=== PATIENT | male | born 1965 | race Caucasian/White ===

== ENCOUNTER 2017-06-20 19:00 | Emergency (ER) | payer SELFPAY ==
[~2017-06-20] VITALS: Ht 188 cm; Wt 104.3 kg
[~2017-06-20 19:00] MED LIST: ALBU90OI6 INH; AMIT10; AZIT250 PO; Ativan1 MG PO; Bactrim Ds Tab1 EACH PO; Benadryl 50 mg50 MG PO; CEPH500 PO; CYCL10 PO; Cleocin HCl300 MG PO; DOXY100 PO; GABA300 PO; HYDACE5; HYDACE5 PO; HYDACE5325 PO; IBUP600 PO; IBUP800 PO; KETO10 PO; Keflex500 MG PO; LEVFLO500 PO; LISHYD2012 PO; LISI20 PO; MELO7.5 PO; METF500 PO; METF500C PO; METO50 PO; METO50ER PO; METPRE4DP PO; Metoprolol Tar100 MG; NAPR500 PO; Naprosyn500 MG PO; Norco 10-325 T1 EACH PO; Norco 5-325 Ta1 EACH PO; OSEL75CA PO; OXYACE5C PO; OXYACE5T PO; PENVK500; PROCODE120 PO; Pepcid20 MG PO; Percocet 5-3251 EACH PO; ROBITUSSIN100 MG/5 M PO; RXCYCL10 PO; RXHYDACE PO; RXSULTRIDS PO; SULTRIDS PO; Ultram50 MG PO; Veetids 500500 MG PO
[2017-06-20] MEDS ORDERED: IBUP800 PO (20:37)
[2017-06-20] MEDS ORDERED: Robaxin500 MG PO (20:37)
[2017-06-20] MEDS ORDERED: LIDO700A20 TOP (20:37)
[2018-03-29] MEDS ORDERED: NEOPOLHCSU RIGHTEAR (18:20)
== END 2017-06-20 21:20 | disposition home or self-care (01) ==
LOC: ER 19:00
DX: G89.29 Other chronic pain (principal); M54.5 Low back pain; I10 Essential (primary) hypertension; E11.40 Type 2 diabetes mellitus with diabetic neuropathy, unspecified; Z91.030 Bee allergy status; Z79.899 Other long term (current) drug therapy; Z87.891 Personal history of nicotine dependence
CPT/HCPCS: 99282; J1885

== ENCOUNTER 2018-08-11 14:14 | Emergency (ER) | payer OTHER ==
[~2018-08-11] VITALS: Ht 188 cm; Wt 104.3 kg
[~2018-08-11 14:14] MED LIST changes: +LIDO700A20 TOP; +NEOPOLHCSU RIGHTEAR; +Robaxin500 MG PO
== END 2018-08-11 15:33 | disposition home or self-care (01) ==
LOC: ER 14:14
DX: Z48.817 Encounter for surgical aftercare following surgery on the skin and subcutaneous tissue (principal); I10 Essential (primary) hypertension; F17.210 Nicotine dependence, cigarettes, uncomplicated
CPT/HCPCS: 99282

== ENCOUNTER 2020-10-25 21:00 | Emergency (ER) | payer OTHER ==
[~2020-10-25] VITALS: Ht 188 cm; Wt 102.1 kg
[2020-10-26 00:03] LABS: BASOPHILS ABSOLUTE AUTO 0.06 K/mm3 (0.00-0.23); BASOPHILS PERCENT AUTO 1 % (0-2); EOSINOPHILS ABSOLUTE AUTO 0.18 K/mm3 (0.00-0.68); EOSINOPHILS PERCENT AUTO 3 % (0-6); Hematocrit 42.3 % (37.0-53.0); Hemoglobin 14.7 g/dL (13.5-17.5); IMMATURE GRAN ABSOLUTE AUTO 0.02 K/mm3 (0.00-0.10); IMMATURE GRAN PERCENT AUTO 0 % (0-1); LYMPHOCYTES ABSOLUTE AUTO 2.94 K/mm3 (0.84-5.20); LYMPHOCYTES PERCENT AUTO 40 % (21-46); MONOCYTES ABSOLUTE AUTO 0.56 K/mm3 (0.16-1.47); MONOCYTES PERCENT AUTO 8 % (4-13); Mean Corpuscular HGB 31.1 pg (26.0-34.0); Mean Corpuscular HGB Conc 34.8 g/dL (31.5-36.5); Mean Corpuscular Volume 89 fL (80-100); Mean Platelet Volume 9.1 fL (9.1-12.4); NEUTROPHILS ABSOLUTE AUTO 3.53 K/mm3 (1.96-9.15); NEUTROPHILS PERCENT AUTO 48 % (41-73); Platelet Count 299 K/mm3 (150-400); RDW Coefficient Variation 12.3 % (11.7-14.2); RDW Standard Deviation 40.2 fL (35.1-46.3); Red Blood Cell Count 4.73 M/mm3 (4.30-5.90); White Blood Cell Count 7.29 K/mm3 (4.00-11.30)
[2020-10-26 00:22] LABS: Alanine Aminotransfer (ALT/SGP 33 U/L (12-78); Albumin, Blood 1.5 g/dL (3.4-5.0); Albumin/Globulin Ratio 0.4 (0.8-1.8); Alk Phos 92 U/L (50-136); Anion Gap 3 mmol/L (6-16); Aspartate Aminotrans (AST/SGOT 33 U/L (12-37); Bilirubin, Total 0.1 mg/dL (0.1-1.0); Blood Urea Nitrogen 14 mg/dL (8-24); Bun/Creatinine Ratio 12.2 (12.0-20.0); CO2, Blood 29 mmol/L (21-32); CPK Creatine Kinase 280 U/L (39-308); Chloride, Blood 104 mmol/L (98-108); Creatinine, Blood 1.15 mg/dL (0.60-1.20); Globulin, Blood 4.1 g/dL (2.2-4.0); Glomerular Filtration Rate >60 (60-); Glucose, Blood 100 mg/dL (70-99); Potassium, Blood 4.4 mmol/L (3.5-5.5); Sodium, Blood 136 mmol/L (136-145); Total Protein, Blood 5.6 g/dL (6.4-8.2)
[2020-10-26 01:18] LABS: International Normalized Ratio 0.9; Prothrombin Time Results 9.8 Sec (9.7-11.5)
== END 2020-10-26 03:05 | disposition home or self-care (01) ==
LOC: ER 21:00
PROVIDERS: Emergency Medicine
DX: E88.09 Other disorders of plasma-protein metabolism, not elsewhere classified (principal); I10 Essential (primary) hypertension; E11.40 Type 2 diabetes mellitus with diabetic neuropathy, unspecified; F17.210 Nicotine dependence, cigarettes, uncomplicated
CPT/HCPCS: 71045; 76870; 80053; 82550; 83735; 83880; 84484; 85025; 85610; 93005; 93010; 99284-25

== ENCOUNTER 2020-11-04 21:10 | Emergency (ER) | payer OTHER ==
[~2020-11-04] VITALS: Ht 188 cm; Wt 128.0 kg
[2020-11-04 21:35] LABS: BASOPHILS ABSOLUTE AUTO 0.08 K/mm3 (0.00-0.23); BASOPHILS PERCENT AUTO 1 % (0-2); EOSINOPHILS ABSOLUTE AUTO 0.21 K/mm3 (0.00-0.68); EOSINOPHILS PERCENT AUTO 2 % (0-6); Hematocrit 40.5 % (37.0-53.0); Hemoglobin 14.2 g/dL (13.5-17.5); IMMATURE GRAN ABSOLUTE AUTO 0.05 K/mm3 (0.00-0.10); IMMATURE GRAN PERCENT AUTO 1 % (0-1); LYMPHOCYTES ABSOLUTE AUTO 2.86 K/mm3 (0.84-5.20); LYMPHOCYTES PERCENT AUTO 31 % (21-46); MONOCYTES ABSOLUTE AUTO 0.91 K/mm3 (0.16-1.47); MONOCYTES PERCENT AUTO 10 % (4-13); Mean Corpuscular HGB Conc 35.1 g/dL (31.5-36.5); Mean Corpuscular Volume 88 fL (80-100); Mean Platelet Volume 9.1 fL (9.1-12.4); NEUTROPHILS ABSOLUTE AUTO 5.27 K/mm3 (1.96-9.15); NEUTROPHILS PERCENT AUTO 56 % (41-73); Platelet Count 352 K/mm3 (150-400); RDW Coefficient Variation 12.3 % (11.7-14.2); RDW Standard Deviation 39.8 fL (35.1-46.3); Red Blood Cell Count 4.58 M/mm3 (4.30-5.90); White Blood Cell Count 9.38 K/mm3 (4.00-11.30)
[2020-11-04 21:42] LABS: Source, Urine Clean Catch
[2020-11-04 21:47] LABS: Appearance, Urine Clear (Clear); Bilirubin, Urine Neg (Neg); Blood, Urine 3+ (Neg); Color, Urine Yellow (P-Yellow); Glucose Qualitative, Urine Neg (Neg); Ketones, Urine Neg (Neg); Leukocyte Esterase, Urine 1+ (Neg); Nitrite, Urine Neg (Neg); Protein, Urine 4+ (Neg); Urobilinogen, Urine NORM (Normal)
[2020-11-04 21:51] LABS: Bacteria Many /hpf; Red Blood Cells, Urine 0-2 /hpf (0-2); Squamous Epithelial Cells Mod /hpf (Few)
[2020-11-04 21:53] LABS: Hyaline Casts 0-2 /lpf (0-2)
[2020-11-04 22:04] LABS: Alanine Aminotransfer (ALT/SGP 26 U/L (12-78); Albumin/Globulin Ratio 0.2 (0.8-1.8); Alk Phos 124 U/L (50-136); Anion Gap 2 mmol/L (6-16); Aspartate Aminotrans (AST/SGOT 33 U/L (12-37); Bilirubin, Total <0.1 mg/dL (0.1-1.0); Blood Urea Nitrogen 24 mg/dL (8-24); Bun/Creatinine Ratio 20.2 (12.0-20.0); CO2, Blood 30 mmol/L (21-32); Calcium, Blood 7.9 mg/dL (8.5-10.1); Chloride, Blood 104 mmol/L (98-108); Creatinine, Blood 1.19 mg/dL (0.60-1.20); Globulin, Blood 4.1 g/dL (2.2-4.0); Glomerular Filtration Rate >60 (60-); Glucose, Blood 96 mg/dL (70-99); Potassium, Blood 4.2 mmol/L (3.5-5.5); Sodium, Blood 136 mmol/L (136-145); Total Protein, Blood 5.1 g/dL (6.4-8.2)
[2020-11-05] MEDS ORDERED: Lasix40 MG PO (00:48)
== END 2020-11-05 01:09 | disposition home or self-care (01) ==
LOC: ER 21:10
PROVIDERS: Physician Assistant
DX: E88.09 Other disorders of plasma-protein metabolism, not elsewhere classified (principal); R60.9 Edema, unspecified; R80.9 Proteinuria, unspecified; I10 Essential (primary) hypertension; E11.40 Type 2 diabetes mellitus with diabetic neuropathy, unspecified; F17.210 Nicotine dependence, cigarettes, uncomplicated; Z91.030 Bee allergy status
CPT/HCPCS: 36415; 74177; 80053; 81001; 83690; 85025; 87086; 96374-59; 96375; 99285-25; J1940; J2405; Q9967

== ENCOUNTER 2020-11-16 06:22 | Inpatient (IN) | payer OTHER ==
[~2020-11-16] VITALS: Ht 188 cm; Wt 127.0 kg
[~2020-11-16 06:22] MED LIST changes: +Lasix40 MG PO
[2020-11-16 07:10] LABS: BASOPHILS ABSOLUTE AUTO 0.07 K/mm3 (0.00-0.23); BASOPHILS PERCENT AUTO 1 % (0-2); EOSINOPHILS ABSOLUTE AUTO 0.21 K/mm3 (0.00-0.68); EOSINOPHILS PERCENT AUTO 3 % (0-6); Hematocrit 42.6 % (37.0-53.0); Hemoglobin 14.6 g/dL (13.5-17.5); IMMATURE GRAN ABSOLUTE AUTO 0.02 K/mm3 (0.00-0.10); IMMATURE GRAN PERCENT AUTO 0 % (0-1); LYMPHOCYTES ABSOLUTE AUTO 2.94 K/mm3 (0.84-5.20); LYMPHOCYTES PERCENT AUTO 38 % (21-46); MONOCYTES ABSOLUTE AUTO 0.68 K/mm3 (0.16-1.47); MONOCYTES PERCENT AUTO 9 % (4-13); Mean Corpuscular HGB 30.5 pg (26.0-34.0); Mean Corpuscular HGB Conc 34.3 g/dL (31.5-36.5); Mean Corpuscular Volume 89 fL (80-100); Mean Platelet Volume 9.2 fL (9.1-12.4); NEUTROPHILS ABSOLUTE AUTO 3.93 K/mm3 (1.96-9.15); NEUTROPHILS PERCENT AUTO 50 % (41-73); Platelet Count 421 K/mm3 (150-400); RDW Coefficient Variation 12.2 % (11.7-14.2); RDW Standard Deviation 40.2 fL (35.1-46.3); Red Blood Cell Count 4.78 M/mm3 (4.30-5.90); White Blood Cell Count 7.85 K/mm3 (4.00-11.30)
[2020-11-16 07:23] LABS: Alanine Aminotransfer (ALT/SGP 33 U/L (12-78); Albumin, Blood 0.9 g/dL (3.4-5.0); Albumin/Globulin Ratio 0.2 (0.8-1.8); Alk Phos 102 U/L (50-136); Anion Gap 2 mmol/L (6-16); Aspartate Aminotrans (AST/SGOT 35 U/L (12-37); Blood Urea Nitrogen 27 mg/dL (8-24); Bun/Creatinine Ratio 17.8 (12.0-20.0); CO2, Blood 29 mmol/L (21-32); Calcium, Blood 7.7 mg/dL (8.5-10.1); Chloride, Blood 104 mmol/L (98-108); Creatinine, Blood 1.52 mg/dL (0.60-1.20); Globulin, Blood 4.3 g/dL (2.2-4.0); Glomerular Filtration Rate 51 (60-); Glucose, Blood 119 mg/dL (70-99); Magnesium, Blood 2.5 mg/dL (1.6-2.4); Phosphorus, Blood 3.3 mg/dL (2.5-4.9); Potassium, Blood 4.4 mmol/L (3.5-5.5); Sodium, Blood 135 mmol/L (136-145); Total Protein, Blood 5.2 g/dL (6.4-8.2)
[2020-11-16 07:36] LABS: Bilirubin, Total <0.1 mg/dL (0.1-1.0)
[2020-11-16 08:16] LABS: Source, Urine Voided
[2020-11-16 08:39] LABS: Appearance, Urine Hazy (Clear); Bilirubin, Urine Neg (Neg); Blood, Urine 4+ (Neg); Color, Urine Yellow (P-Yellow); Glucose Qualitative, Urine Neg (Neg); Ketones, Urine Neg (Neg); Leukocyte Esterase, Urine Neg (Neg); Nitrite, Urine Neg (Neg); Protein, Urine 4+ (Neg); Specific Gravity, Urine 1.015 (1.003-1.022); Urobilinogen, Urine NORM (Normal)
[2020-11-16 09:02] LABS: Amorphous Light (0-Heavy); Bacteria Few /hpf; Squamous Epithelial Cells Rare /hpf (Few)
--- NOTE | 2020-11-16 14:00 | NUR ---
PT IS A AOX4; CALLS APPROPRIATELY. INDEPENDENT IN THE ROOM. PT CAME IN FOR ANASARCA RELATED TO KIDNEY. PT IS 55YO; FULL CODE. PT CAME IN WITH 180S SBP. PT GIVEN PRN HYDRALIZINE. PT STARTED 24 HR URINE; DR BREWER WAS CONSULTED- SEE PROGRESS NOTE. GENERALIZED EDEMA ON BOTH UPPER AND LOWER EXTREMETIES +2/3. PT ALSO HAS DISTENDED ABD; PAINFUL WHEN MOVING TOO MUCH ON ABD; MEDICATED FOR PAIN X1. PT BP IS NOW DOWN TO 170'S SBP; CALLED AND RECEIVED AN ORDER TO START THE PROCARDIA NOW. WILL RECHECK THE BP IN AN HOUR. PT URINATING OKAY AND NO C/O OF PAIN OR BLOOD IN URINE. PT LIVES WITH . PT FRUSTRATED ABOUT HIS SITUATION. HE IS NOT ON ANY MEDICATION FOR HIS BLOOD PRESSURE AND HE STATED HE HAS NOT BEEN CHECKING HIS BP AND NOT BEEN TAKING CARE OF HIS HEALTH HE SHOULD.
--- NOTE | 2020-11-17 04:23 | NUR ---
PATIENT ALERT AND COOPERATIVE WITH CARE. VERY MINIMAL URINE OUT OVERNIGHT. BLADDER SCANNED AT 0400 FOR AN AMOUNT >300. PATIENT TRYING TO STAND AT BEDSIDE TO URINATE NOT. COLLECTED URINE ON ICE OVERNIGHT FOR 24 HOUR URINE WHICH WILL BE COMPLETE AT 1500 TODAY.
[2020-11-17 06:06] LABS: Hematocrit 39.4 % (37.0-53.0); Hemoglobin 13.7 g/dL (13.5-17.5); Mean Corpuscular HGB 31.1 pg (26.0-34.0); Mean Corpuscular HGB Conc 34.8 g/dL (31.5-36.5); Mean Corpuscular Volume 89 fL (80-100); Mean Platelet Volume 9.2 fL (9.1-12.4); Platelet Count 420 K/mm3 (150-400); RDW Coefficient Variation 12.5 % (11.7-14.2); RDW Standard Deviation 40.8 fL (35.1-46.3); Red Blood Cell Count 4.41 M/mm3 (4.30-5.90); White Blood Cell Count 8.64 K/mm3 (4.00-11.30)
[2020-11-17 06:33] LABS: Alanine Aminotransfer (ALT/SGP 26 U/L (12-78); Albumin/Globulin Ratio 0.2 (0.8-1.8); Alk Phos 91 U/L (50-136); Anion Gap 5 mmol/L (6-16); Aspartate Aminotrans (AST/SGOT 25 U/L (12-37); Bilirubin, Direct <0.1 mg/dL (0.0-0.3); Bilirubin, Indirect Unable to Calculate mg/dL (0.1-0.7); Bilirubin, Total 0.2 mg/dL (0.1-1.0); Blood Urea Nitrogen 31 mg/dL (8-24); Bun/Creatinine Ratio 18.5 (12.0-20.0); CHOL/HDL RATIO 5.3; CO2, Blood 26 mmol/L (21-32); Calcium, Blood 7.7 mg/dL (8.5-10.1); Chloride, Blood 103 mmol/L (98-108); Cholesterol 436 mg/dL (50-200); Creatinine, Blood 1.68 mg/dL (0.60-1.20); Globulin, Blood 4.2 g/dL (2.2-4.0); Glomerular Filtration Rate 45 (60-); Glucose, Blood 116 mg/dL (70-99); HDL Cholesterol 83 mg/dL (>39); LDL/HDL RATIO 3.8; Low Density Lipoprotein Chol 316 mg/dL (0-110); Magnesium, Blood 2.6 mg/dL (1.6-2.4); Phosphorus, Blood 3.9 mg/dL (2.5-4.9); Potassium, Blood 4.4 mmol/L (3.5-5.5); Sodium, Blood 134 mmol/L (136-145); Total Protein, Blood 5.2 g/dL (6.4-8.2); Triglycerides 184 mg/dL (30-160); Uric Acid, Blood 5.4 mg/dL (3.5-7.2); Very Low Density Lipoprot Chol 36 mg/dL (6-32)
[2020-11-17 06:35] LABS: BASOPHILS ABSOLUTE MAN 0.08 K/mm3 (0.00-0.23); BASOPHILS PERCENT MAN 1 % (0-2); Cortisol, AM 12.5 ug/dL (6.7-22.6); EOSINOPHILS PERCENT MAN 0 % (0-6); LYMPHOCYTES ABSOLUTE MAN 2.76 K/mm3 (0.84-5.20); LYMPHOCYTES PERCENT MAN 32 % (21-46); MONOCYTES PERCENT MAN 7 % (4-13); NEUTROPHILS ABSOLUTE MAN 5.18 K/mm3 (1.96-9.15); SEG NEUTROPHILS PERCENT MAN 60 % (41-73); TOTAL CELLS COUNTED 100
[2020-11-17 08:25] LABS: Free Thyroxine 0.55 ng/dL (0.70-1.60); Triiodothyronine, Free 1.48 pg/mL (2.18-3.98)
[2020-11-17 15:44] LABS: Protein, Urine Quantitative 1214.3 mg/dL (0.0-11.9)
--- NOTE | 2020-11-17 18:13 | NUR ---
SHIFT SUMMARY PT ALERT ORIENTED AND INDEPENDENT IN THE ROOM. PT RECEIVED MEDICATIONS PER DR OJEDA ORDER THIS AM. 24 HR URINE DONE. STILL DIURESING AND FLUID RESTRICTION PER DR ORDER. MEDICATED PT FOR PAIN. NO SOB OR CP. BED IS IN THE LOWEST POSITION AND CALL LIGHT WITHIN REACH
[2020-11-17 22:56] LABS: Eosinophils-Raw #,Urine 0; White Blood Cells Urine 0-2 /hpf (0-5)
[2020-11-18 05:15] LABS: Hematocrit 37.3 % (37.0-53.0); Hemoglobin 12.6 g/dL (13.5-17.5)
[2020-11-18 05:32] LABS: Albumin, Blood 1.3 g/dL (3.4-5.0); Anion Gap 5 mmol/L (6-16); Blood Urea Nitrogen 29 mg/dL (8-24); Bun/Creatinine Ratio 17.6 (12.0-20.0); CO2, Blood 28 mmol/L (21-32); Calcium, Blood 7.8 mg/dL (8.5-10.1); Chloride, Blood 104 mmol/L (98-108); Creatinine, Blood 1.65 mg/dL (0.60-1.20); Glomerular Filtration Rate 46 (60-); Glucose, Blood 115 mg/dL (70-99); Magnesium, Blood 2.4 mg/dL (1.6-2.4); Phosphorus, Blood 4.3 mg/dL (2.5-4.9); Potassium, Blood 3.4 mmol/L (3.5-5.5); Sodium, Blood 137 mmol/L (136-145)
--- NOTE | 2020-11-18 06:05 | NUR ---
KELLY SLEPT WELL EXCEPT TO WAKE TO URINATE. PATIENT VOIDED LARGE QUANTITIES OF PALE YELLOW URINE OVERNIGHT. MEDICATED FOR PAIN IN RIGHT WRIST (OLD INJURY MADE WORSE BY SWELLING). HE IS PLEASANT AND COOPERATIVE WITH CARE, AND READY TO TAKE ANY STEPS HE CAN TO PARTICIPATE IN A POSITIVE OUTCOME REGARDING HIS ILLNESS.
--- NOTE | 2020-11-18 08:47 | NUR ---
pt standing in room, a/ox3, pleasant and cooperative with care, follows commands well, reports a lot of discomfort due to swelling mulu in scrotum, lungs are clear in upper lujan, dim in bases, resp even and unlabored, no cough noted, hrr, 2-3+ edema noted to b/l le, abd tight, arms are tight and swollen, iv to rac site is clear and patent, btx4 distant, voids via urinal is clear moses urine, skin is a bit dark discoloration to b/l le, otherwise intact, avis christianson, call light in reach, up ad ita in room.
--- NOTE | 2020-11-18 11:48 | NUR ---
pt doing ok, is uncomfortable with how much fluid he is carrying, otherwise doing ok, no complaints. call light in reach.
--- NOTE | 2020-11-18 18:45 | NUR ---
SUMMARY PT IS A&OX3, INDEPENDENT IN THE ROOM. HE WAS GIVEN IV BUMEX X2 TODAY, VOIDING WITH NO PROBLEMS, APPROX 3,000 ML'S CLEAR YELLOW URINE NOTED. PT IS TOLERATING PO INTAKE. IV PAIN MEDS WERE CHANGED TO ULTRAM TODAY. ORDERED AN XRAY OF THE RIGHT WRIST PER PT REQUEST, PT C/O PAIN FROM A PREVIOUS INJURY PRIOR TO THIS HOSPITALIZTION. CONNIE REPORT TO NOC RN, CALL LIGHT IN REACH
--- NOTE | 2020-11-19 04:48 | NUR ---
SHIFT SUMMARY A/OX4, PLEASANT AND COOPERATIVE WITH CARE. GENERALIZED EDEMA NOTED, 1L FLUID RESTRICTION. C/O ABD AND FLANK PAIN, MEDICATED PER EMAR X1. VSS, NO ACUTE CHANGES AT THIS TIME. BED IN LOWEST POSITION WITH CALL LIGHT IN REACH. WILL CONTINUE TO MONITOR AND REPORT TO ONCOMING RN.
[2020-11-19 05:11] LABS: Hematocrit 34.7 % (37.0-53.0)
[2020-11-19 05:37] LABS: Albumin, Blood 1.3 g/dL (3.4-5.0); Anion Gap 5 mmol/L (6-16); Blood Urea Nitrogen 32 mg/dL (8-24); Bun/Creatinine Ratio 20.9 (12.0-20.0); CO2, Blood 31 mmol/L (21-32); Calcium, Blood 7.5 mg/dL (8.5-10.1); Chloride, Blood 99 mmol/L (98-108); Creatinine, Blood 1.53 mg/dL (0.60-1.20); Glomerular Filtration Rate 50 (60-); Glucose, Blood 112 mg/dL (70-99); Magnesium, Blood 2.3 mg/dL (1.6-2.4); Phosphorus, Blood 4.8 mg/dL (2.5-4.9); Potassium, Blood 3.2 mmol/L (3.5-5.5); Sodium, Blood 135 mmol/L (136-145)
--- NOTE | 2020-11-19 13:30 | NUR ---
PT GAVE VERBAL PERMISSION FOR ME TO SPEAK TO . CALLED PATIENT'S SHILA, GAVE UPDATE ON PT'S CONDITION AND PLAN OF CARE GOING FORWARD. ALL QUESTIONS ANSWERED.
[2020-11-19 14:42] LABS: Percent Saturation 54.8 % (20.0-50.0)
[2020-11-19 15:09] LABS: A/G RATIO 0.6 (0.7-1.7); ALBUMIN 1.4 g/dL (2.9-4.4); ALPHA-1-GLOBULIN 0.2 g/dL (0.0-0.4); ALPHA-2-GLOBULIN 1.2 g/dL (0.4-1.0); BETA GLOBULIN 0.9 g/dL (0.7-1.3); GAMMA GLOBULIN 0.4 g/dL (0.4-1.8); GLOBULIN, TOTAL 2.6 g/dL (2.2-3.9); IMMUNOGLOBULIN A, QN, SERUM 215 mg/dL (90-386); IMMUNOGLOBULIN G, QN, SERUM 197 mg/dL (603-1613); IMMUNOGLOBULIN M, QN, SERUM 131 mg/dL (20-172); M-SPIKE Not Observed g/dL (Not Observed)
--- NOTE | 2020-11-19 18:14 | NUR ---
SHIFT SUMMARY: NO ACUTE EVENTS. C/O PAIN IN R WRIST; MEDICATED WITH TRAMADOL X 1 WITH GOOD EFFECT AND GAVE ICE BAG, WHICH HE STATED HELPED. GOOD URINE OUTPUT, USING URINAL INDEPENDENTLY. SKIN IS TIGHT THROUGHOUT FROM EDEMA. COMPLIANT WITH FLUID RESTRICTION, BUT SENT ORDER TO FOOD SERVICES TO LIMIT FLUIDS ON TRAYS. TOLERATING PO INTAKE, BUT LBM WAS 6/18, WILL NEED BOWEL MEDS. INDEPENDENT IN ROOM, VERBALIZED UNDERSTANDING TO CALL NURSING FOR ASSISTANCE IF NEEDED AND TO CHANGE POSITIONS SLOWLY TO PREVENT DIZZINESS.
--- NOTE | 2020-11-20 04:09 | NUR ---
SHIFT SUMMARY A/OX4, IND IN ROOM. 1L FLUID RESTRICTION. C/O R. WRIST AND ABD PAIN, MEDICATED PER EMAR X1. DENIES SOB. VSS, NO ACUTE CHANGES AT THIS TIME. BED IN LOWEST POSITION WITH CALL LIGHT IN REACH. WILL CONTINUE TO MONITOR AND REPORT TO ONCOMING RN.
[2020-11-20 05:25] LABS: Hematocrit 34.1 % (37.0-53.0); Hemoglobin 11.8 g/dL (13.5-17.5)
[2020-11-20 05:51] LABS: Albumin, Blood 1.3 g/dL (3.4-5.0); Anion Gap 5 mmol/L (6-16); Blood Urea Nitrogen 32 mg/dL (8-24); Bun/Creatinine Ratio 22.9 (12.0-20.0); CO2, Blood 33 mmol/L (21-32); Calcium, Blood 7.8 mg/dL (8.5-10.1); Chloride, Blood 97 mmol/L (98-108); Glomerular Filtration Rate 56 (60-); Glucose, Blood 106 mg/dL (70-99); Magnesium, Blood 2.2 mg/dL (1.6-2.4); Phosphorus, Blood 3.9 mg/dL (2.5-4.9); Potassium, Blood 3.5 mmol/L (3.5-5.5); Sodium, Blood 135 mmol/L (136-145)
[2020-11-20 08:10] LABS: ANTIGLOMERULAR BM AB 2 units (0-20)
[2020-11-20 11:10] LABS: M-SPIKE, % Not Observed % (Not Observed); PROTEIN,TOTAL,URINE 1230.9 mg/dL (Not Estab.)
[2020-11-20] MEDS ORDERED: BUME2 PO (11:33)
[2020-11-20] MEDS ORDERED: ATOR40TA PO (11:33)
[2020-11-20] MEDS ORDERED: Catapres0.2 MG PO (11:34)
[2020-11-20] MEDS ORDERED: CARV6.25 PO (11:34)
[2020-11-20] MEDS ORDERED: EUTHYROX50 MCG PO (11:35)
[2020-11-20] MEDS ORDERED: METO5 PO (11:36)
[2020-11-20] MEDS ORDERED: POTCHL20ER PO (11:36)
[2020-11-20] MEDS ORDERED: SPIR25 PO (11:37)
--- NOTE | 2020-11-20 13:00 | NUR ---
PATIENT DISCHARGED TO HOME, TO PEACE OFFICER. IV SALINE LOCK REMOVED WITHOUT INCIDENT. GAVE EXTENSIVE EDUCATION, BOTH VERBAL AND PRINTED, ON MANAGING HTN, DIET RESTRICTIONS (LOW SALT, RENAL), WHAT TO DO IF SXS COME BACK OR WORSEN, AND ALL NEW MEDICATIONS. PT VERBALIZED UNDERSTANDING, BUT SEEMED A BIT UNSURE. OFF UNIT VIA W/C AT 1245. NO BELONGINGS LEFT BEHIND IN ROOM.
[2020-11-20 13:10] LABS: ANA DIRECT Negative (Negative); ANTIMYELOPEROXIDASE (MPO) ABS <9.0 U/mL (0.0-9.0); ANTIPROTEINASE 3 (PR-3) ABS <3.5 U/mL (0.0-3.5); ATYPICAL PANCA <1:20 titer (Neg:<1:20); CYTOPLASMIC (C-ANCA) <1:20 titer (Neg:<1:20); PERINUCLEAR (P-ANCA) <1:20 titer (Neg:<1:20)
== END 2020-11-20 12:45 | disposition home or self-care (01) | DRG 683 ==
LOC: ER 06:22 → MEDS 10:46 → ERHOLD 10:46 → MEDS 13:34
PROVIDERS: Emergency Medicine; Internal Medicine; Internal Medicine Nephrology; ADMIT Internal Medicine
DX: N17.0 Acute kidney failure with tubular necrosis (principal); E87.1 Hypo-osmolality and hyponatremia; I12.9 Hypertensive chronic kidney disease with stage 1 through stage 4 chronic kidney disease, or unspecified chronic kidney disease; N18.9 Chronic kidney disease, unspecified; E11.40 Type 2 diabetes mellitus with diabetic neuropathy, unspecified; E11.21 Type 2 diabetes mellitus with diabetic nephropathy; E11.22 Type 2 diabetes mellitus with diabetic chronic kidney disease; M54.5 Low back pain; E87.70 Fluid overload, unspecified; D63.1 Anemia in chronic kidney disease; F17.210 Nicotine dependence, cigarettes, uncomplicated; E03.9 Hypothyroidism, unspecified; E78.5 Hyperlipidemia, unspecified; E87.6 Hypokalemia; E66.9 Obesity, unspecified; E88.09 Other disorders of plasma-protein metabolism, not elsewhere classified; G89.29 Other chronic pain; Z68.36 Body mass index [BMI] 36.0-36.9, adult; Z90.49 Acquired absence of other specified parts of digestive tract; Z98.890 Other specified postprocedural states; Z91.030 Bee allergy status; Z79.899 Other long term (current) drug therapy
CPT/HCPCS: 36415; 71046; 73100; 80053; 80061; 80069; 81001; 81050; 82248; 82533; 82728; 82784; 82947; 83036; 83516; 83520; 83540; 83550; 83735; 83970; 84100; 84156; 84165; 84166; 84439; 84443; 84481; 84550; 85007; 85014; 85018; 85025; 85027; 86038; 86256; 86334; 86335; 87205; 96374; 99284-25; A9270; J0360; J1170; J1644; J1940; J2405; P9041

== ENCOUNTER 2020-12-30 13:33 | Observation (INO) | payer OTHER ==
[~2020-12-30] VITALS: Ht 188 cm; Wt 113.9 kg
[~2020-12-30 13:33] MED LIST changes: +ATOR40TA PO; +BUME2 PO; +CARV6.25 PO; +Catapres0.2 MG PO; +EUTHYROX50 MCG PO; +METO5 PO; +POTCHL20ER PO; +SPIR25 PO
[2020-12-30 14:50] LABS: BASOPHILS ABSOLUTE AUTO 0.07 K/mm3 (0.00-0.23); BASOPHILS PERCENT AUTO 1 % (0-2); EOSINOPHILS ABSOLUTE AUTO 0.09 K/mm3 (0.00-0.68); EOSINOPHILS PERCENT AUTO 1 % (0-6); Hematocrit 27.5 % (37.0-53.0); Hemoglobin 10.2 g/dL (13.5-17.5); IMMATURE GRAN ABSOLUTE AUTO 0.03 K/mm3 (0.00-0.10); IMMATURE GRAN PERCENT AUTO 0 % (0-1); LYMPHOCYTES ABSOLUTE AUTO 2.92 K/mm3 (0.84-5.20); LYMPHOCYTES PERCENT AUTO 33 % (21-46); MONOCYTES ABSOLUTE AUTO 0.77 K/mm3 (0.16-1.47); MONOCYTES PERCENT AUTO 9 % (4-13); Mean Corpuscular HGB 31.3 pg (26.0-34.0); Mean Corpuscular HGB Conc 37.1 g/dL (31.5-36.5); Mean Corpuscular Volume 84 fL (80-100); Mean Platelet Volume 9.1 fL (9.1-12.4); NEUTROPHILS ABSOLUTE AUTO 4.87 K/mm3 (1.96-9.15); NEUTROPHILS PERCENT AUTO 56 % (41-73); Platelet Count 384 K/mm3 (150-400); RDW Coefficient Variation 12.4 % (11.7-14.2); RDW Standard Deviation 37.4 fL (35.1-46.3); Red Blood Cell Count 3.26 M/mm3 (4.30-5.90); White Blood Cell Count 8.75 K/mm3 (4.00-11.30)
[2020-12-30 15:12] LABS: Troponin I 0.094 ng/mL (0.000-0.040)
[2020-12-30 15:31] LABS: Albumin, Blood 0.8 g/dL (3.4-5.0); Albumin/Globulin Ratio 0.2 (0.8-1.8); Bilirubin, Total 0.1 mg/dL (0.1-1.0); Bun/Creatinine Ratio 30.3 (12.0-20.0); Calcium, Blood 7.5 mg/dL (8.5-10.1); Creatinine, Blood 2.18 mg/dL (0.60-1.20); Potassium, Blood 2.4 mmol/L (3.5-5.5); Total Protein, Blood 4.8 g/dL (6.4-8.2)
[2020-12-30] MEDS ORDERED: BUME2 PO (17:03)
[2020-12-30] MEDS ORDERED: OMEPRAZOLE MAGN20 M1 PO (17:04)
[2020-12-30] MEDS ORDERED: SPIRONOLACTONE25 MG PO (17:04)
[2020-12-30] MEDS ORDERED: ATOR20 PO (17:04)
[2020-12-30] MEDS ORDERED: Potassium Chlo20 ME1 PO (17:04)
[2020-12-30] MEDS ORDERED: CARVEDILOL6.25 MG PO (17:05)
[2020-12-30] MEDS ORDERED: CLON.2 PO (17:05)
[2020-12-30] MEDS ORDERED: FUROSEMIDE40 MG PO (17:05)
[2020-12-30] MEDS ORDERED: METO5 PO (17:51)
[2020-12-30 20:31] LABS: Magnesium, Blood 2.5 mg/dL (1.6-2.4)
[2020-12-30 20:33] LABS: Potassium, Blood 2.4 mmol/L (3.5-5.5)
--- NOTE | 2020-12-31 04:42 | NUR ---
SHIFT SUMMARY RECIEVED REPORT FROM RE CAMPO, ED @ 194. ARRIVED TO MEDICAL UNIT VIA [place] @ 1999. MINIMAL TRANSFER FROM GURNEY TO BED. ORIENTED TO ROOM AND CALL SYSTEM. A/O, ABLE TO MAKE NEEDS KNOWN. COOPERATIVE WITH CARE. CALLS AND ANSWERS QUESTIONS APPROPRIATELY. NO C/O PAIN/DISCOMFORT. RECIEVED X2 IV K+. UNNA BOOTS IN PLACE UPON ADMISSION, STATES WERE PLACED BY URGENT CARE 12/29/20; NO WOUND CARE ORDERS PLACED. TELE RUNNING SR @ 61. NO ACUTE CHANGES NOTED OVERNIGHT. APPEARED TO REST MUCH OF THE NIGHT. BED REMAINS IN LOWEST POSITION. CALL LIGHT AND BELONGINGS WITHIN REACH. CONTINUE WITH CURRENT PLAN OF CARE. REPORT TO AUBREY CAMPO.
[2020-12-31 05:29] LABS: Hematocrit 29.7 % (37.0-53.0); Hemoglobin 10.6 g/dL (13.5-17.5)
[2020-12-31 06:11] LABS: Albumin, Blood 0.7 g/dL (3.4-5.0); Anion Gap 7 mmol/L (6-16); Blood Urea Nitrogen 65 mg/dL (8-24); Bun/Creatinine Ratio 30.2 (12.0-20.0); CO2, Blood 29 mmol/L (21-32); Calcium, Blood 7.7 mg/dL (8.5-10.1); Chloride, Blood 99 mmol/L (98-108); Creatinine, Blood 2.15 mg/dL (0.60-1.20); Glomerular Filtration Rate 32 (60-); Glucose, Blood 145 mg/dL (70-99); Magnesium, Blood 2.5 mg/dL (1.6-2.4); Phosphorus, Blood 4.4 mg/dL (2.5-4.9); Potassium, Blood 2.6 mmol/L (3.5-5.5); Sodium, Blood 135 mmol/L (136-145)
--- NOTE | 2020-12-31 15:34 | NUR ---
PATIENT HAS BEEN PLEASANT AND COOPERATIVE WITH STAFF. VITALS STABLE; BRADYCARDIC HOWEVER THAT SEEMS TO BE THE PATIENTS BASELINE. PATIENT CURRENTLY RECIEVING K-RIDER AT THIS TIME AND TOLERATING WITHOUT COMPLAINT. INDEPENDENT IN ROOM. CALLS FOR STAFF ASSIST NEEDED. HAS SOME CHRONIC PAIN TO BLE AND REQUESTS PAIN MEDICATION NEEDED WITH EFFECTIVENESS. CALL LIGHT WITHIN REACH.
--- NOTE | 2020-12-31 19:15 | NUR ---
ASSUMED CARE RECEIVED REPORT FROM JAHAIRA THORNTON. PT RESTING, IN NAD. REPORTS PAIN IS IMPROVING, RATES 4/10. NO OTHER ACUTE NEEDS ASSESSED AT THIS TIME. CALL LIGHT, POSSESSIONS IN REACH.
[2021-01-01 05:39] LABS: Hemoglobin 11.8 g/dL (13.5-17.5)
[2021-01-01 06:00] LABS: Albumin, Blood 0.8 g/dL (3.4-5.0); Anion Gap 5 mmol/L (6-16); Blood Urea Nitrogen 55 mg/dL (8-24); Bun/Creatinine Ratio 25.5 (12.0-20.0); CO2, Blood 28 mmol/L (21-32); Calcium, Blood 8.5 mg/dL (8.5-10.1); Chloride, Blood 101 mmol/L (98-108); Creatinine, Blood 2.16 mg/dL (0.60-1.20); Glomerular Filtration Rate 32 (60-); Glucose, Blood 119 mg/dL (70-99); Magnesium, Blood 2.4 mg/dL (1.6-2.4); Phosphorus, Blood 3.5 mg/dL (2.5-4.9); Potassium, Blood 3.2 mmol/L (3.5-5.5); Sodium, Blood 134 mmol/L (136-145)
--- NOTE | 2021-01-01 06:40 | NUR ---
ACCOUNT SERVICES ANALYST SUMMARY PT RESTING, IN NAD. APPEARED TO SLEEP WELL T/O NIGHT. INDEPENDENT IN ROOM. VS REVIEWED,WNL. MEDICATED X1 FOR PAIN. SPOKE TO DR. OJEDA REGARDING PT'S K+ LEVELS, ORDERS RECEIVED FOR REPEAT LAB DRAW THIS AFTERNOON, AND TO NOTIFY OF RESULTS. PT DENIES NEEDS AT THIS TIME. CALL LIGHT, POSSESSIONS IN REACH, BED IN LOW AND LOCKED POSITION. WILL REPORT OFF TO ONCOMING RN.
--- NOTE | 2021-01-01 15:35 | NUR ---
DISCHARGE INSTRUCTIONS GIVEN TO THE PATIENT. ALL QUESTIONS ANSWERED. IV AND TELE REMOVED. APPOINTMENT WITH DR OJEDA SET UP. PATIENT GIVEN EDUCATIONAL MATERIAL REGARDING HYPOKALEMIA. PRESCRIPTIONS FAXED TO [facility] PER THE PATIENTS REQUEST. THE PATIENT WALKED OUT OF HERE TO DISCHARGE HOME AT 1530 WITH THE RN ESCORT.
== END 2021-01-01 15:30 | disposition home or self-care (01) ==
LOC: ER 13:33 → MEDS 13:34
PROVIDERS: Internal Medicine Nephrology; Physician Assistant; ADMIT Internal Medicine
DX: N17.9 Acute kidney failure, unspecified (principal); N04.9 Nephrotic syndrome with unspecified morphologic changes; E87.6 Hypokalemia; E11.22 Type 2 diabetes mellitus with diabetic chronic kidney disease; I12.9 Hypertensive chronic kidney disease with stage 1 through stage 4 chronic kidney disease, or unspecified chronic kidney disease; N18.9 Chronic kidney disease, unspecified; F17.200 Nicotine dependence, unspecified, uncomplicated; E87.1 Hypo-osmolality and hyponatremia; E88.09 Other disorders of plasma-protein metabolism, not elsewhere classified; D64.9 Anemia, unspecified; E66.9 Obesity, unspecified; E78.5 Hyperlipidemia, unspecified; E03.9 Hypothyroidism, unspecified; S81.802A Unspecified open wound, left lower leg, initial encounter; S81.801A Unspecified open wound, right lower leg, initial encounter; X58.XXXA Exposure to other specified factors, initial encounter; Z68.32 Body mass index [BMI] 32.0-32.9, adult; Z91.038 Other insect allergy status
CPT/HCPCS: 36415; 71046; 76770; 80048; 80053; 80069; 83690; 83735; 83880; 84132; 84484; 85014; 85018; 85025; 93005; 93010; 96365; 96366; 96372; 96375; 97110; 97161; 99285-25; A9270; G0378; J1644; J1940; J3480

== ENCOUNTER 2021-01-25 17:28 | Emergency (ER) | payer OTHER ==
[~2021-01-25] VITALS: Ht 188 cm; Wt 108.9 kg
[~2021-01-25 17:28] MED LIST changes: +ATOR20 PO; +CARVEDILOL6.25 MG PO; +CLON.2 PO; +FUROSEMIDE40 MG PO; +OMEPRAZOLE MAGN20 M1 PO; +Potassium Chlo20 ME1 PO; +SPIRONOLACTONE25 MG PO
[2021-01-25 17:54] LABS: BASOPHILS ABSOLUTE AUTO 0.09 K/mm3 (0.00-0.23); BASOPHILS PERCENT AUTO 1 % (0-2); EOSINOPHILS PERCENT AUTO 3 % (0-6); Hematocrit 31.5 % (37.0-53.0); Hemoglobin 11.1 g/dL (13.5-17.5); IMMATURE GRAN ABSOLUTE AUTO 0.17 K/mm3 (0.00-0.10); IMMATURE GRAN PERCENT AUTO 2 % (0-1); LYMPHOCYTES ABSOLUTE AUTO 3.42 K/mm3 (0.84-5.20); LYMPHOCYTES PERCENT AUTO 31 % (21-46); MONOCYTES ABSOLUTE AUTO 0.75 K/mm3 (0.16-1.47); MONOCYTES PERCENT AUTO 7 % (4-13); Mean Corpuscular HGB 30.8 pg (26.0-34.0); Mean Corpuscular HGB Conc 35.2 g/dL (31.5-36.5); Mean Corpuscular Volume 88 fL (80-100); Mean Platelet Volume 9.1 fL (9.1-12.4); NEUTROPHILS ABSOLUTE AUTO 6.46 K/mm3 (1.96-9.15); NEUTROPHILS PERCENT AUTO 58 % (41-73); Platelet Count 356 K/mm3 (150-400); RDW Coefficient Variation 13.1 % (11.7-14.2); RDW Standard Deviation 41.2 fL (35.1-46.3); White Blood Cell Count 11.19 K/mm3 (4.00-11.30)
[2021-01-25 18:17] LABS: Albumin, Blood 0.9 g/dL (3.4-5.0); Albumin/Globulin Ratio 0.2 (0.8-1.8); Bilirubin, Total 0.1 mg/dL (0.1-1.0); Bun/Creatinine Ratio 23.4 (12.0-20.0); Calcium, Blood 7.6 mg/dL (8.5-10.1); Creatinine, Blood 2.39 mg/dL (0.60-1.20); Globulin, Blood 4.2 g/dL (2.2-4.0); Magnesium, Blood 2.1 mg/dL (1.6-2.4); Potassium, Blood 3.1 mmol/L (3.5-5.5); Total Protein, Blood 5.1 g/dL (6.4-8.2); Troponin I 0.055 ng/mL (0.000-0.040)
[2021-01-25] MEDS ORDERED: METO5 PO (18:31)
[2021-01-26] MEDS ORDERED: ONDA4ODT MM (12:29)
[2021-01-26] MEDS ORDERED: ALMACONE SUSPE355 ML PO (12:29)
[2021-01-26] MEDS ORDERED: FAMO20 PO (12:29)
== END 2021-01-25 19:34 | disposition home or self-care (01) ==
LOC: ER 17:28
PROVIDERS: Emergency Medicine
DX: K29.70 Gastritis, unspecified, without bleeding (principal); E87.6 Hypokalemia; E11.9 Type 2 diabetes mellitus without complications; I10 Essential (primary) hypertension; F17.210 Nicotine dependence, cigarettes, uncomplicated; Z91.038 Other insect allergy status; Z79.890 Hormone replacement therapy; Z79.899 Other long term (current) drug therapy
CPT/HCPCS: 36415; 80053; 83690; 83735; 84484; 85025; 99283; A9270

== ENCOUNTER 2021-01-26 08:30 | Emergency (ER) | payer OTHER ==
[~2021-01-26] VITALS: Ht 188 cm; Wt 108.9 kg
[2021-01-26 09:49] LABS: BASOPHILS PERCENT AUTO 1 % (0-2); EOSINOPHILS ABSOLUTE AUTO 0.11 K/mm3 (0.00-0.68); EOSINOPHILS PERCENT AUTO 1 % (0-6); Hematocrit 36.2 % (37.0-53.0); Hemoglobin 12.4 g/dL (13.5-17.5); IMMATURE GRAN ABSOLUTE AUTO 0.09 K/mm3 (0.00-0.10); IMMATURE GRAN PERCENT AUTO 1 % (0-1); LYMPHOCYTES PERCENT AUTO 26 % (21-46); MONOCYTES PERCENT AUTO 7 % (4-13); Mean Corpuscular HGB Conc 34.3 g/dL (31.5-36.5); Mean Corpuscular Volume 88 fL (80-100); Mean Platelet Volume 9.2 fL (9.1-12.4); NEUTROPHILS ABSOLUTE AUTO 6.79 K/mm3 (1.96-9.15); NEUTROPHILS PERCENT AUTO 64 % (41-73); Platelet Count 386 K/mm3 (150-400); RDW Standard Deviation 41.6 fL (35.1-46.3); Red Blood Cell Count 4.13 M/mm3 (4.30-5.90); White Blood Cell Count 10.59 K/mm3 (4.00-11.30)
[2021-01-26 09:58] LABS: Troponin I 0.041 ng/mL (0.000-0.040)
[2021-01-26 10:14] LABS: Alanine Aminotransfer (ALT/SGP 18 U/L (12-78); Albumin/Globulin Ratio 0.2 (0.8-1.8); Alk Phos 65 U/L (50-136); Anion Gap 7 mmol/L (6-16); Aspartate Aminotrans (AST/SGOT 20 U/L (12-37); Bilirubin, Direct <0.1 mg/dL (0.0-0.3); Bilirubin, Indirect Unable to Calculate mg/dL (0.1-0.7); Bilirubin, Total <0.1 mg/dL (0.1-1.0); Blood Urea Nitrogen 44 mg/dL (8-24); Bun/Creatinine Ratio 20.3 (12.0-20.0); CO2, Blood 26 mmol/L (21-32); Calcium, Blood 8.1 mg/dL (8.5-10.1); Chloride, Blood 98 mmol/L (98-108); Creatinine, Blood 2.17 mg/dL (0.60-1.20); Globulin, Blood 4.5 g/dL (2.2-4.0); Glomerular Filtration Rate 32 (60-); Glucose, Blood 128 mg/dL (70-99); Potassium, Blood 3.1 mmol/L (3.5-5.5); Sodium, Blood 131 mmol/L (136-145); Total Protein, Blood 5.5 g/dL (6.4-8.2)
[2021-01-26] MEDS ORDERED: ONDA4ODT MM (12:29)
[2021-01-26] MEDS ORDERED: ALMACONE SUSPE355 ML PO (12:29)
[2021-01-26] MEDS ORDERED: FAMO20 PO (12:29)
== END 2021-01-26 16:02 | disposition home or self-care (01) ==
LOC: ER 08:30
PROVIDERS: Student in an Organized Health Care Education/Training Program
DX: K29.70 Gastritis, unspecified, without bleeding (principal); R77.8 Other specified abnormalities of plasma proteins; E87.6 Hypokalemia; E87.1 Hypo-osmolality and hyponatremia; I10 Essential (primary) hypertension; E11.9 Type 2 diabetes mellitus without complications; Z87.891 Personal history of nicotine dependence; Z91.038 Other insect allergy status; Z79.890 Hormone replacement therapy; Z79.899 Other long term (current) drug therapy
CPT/HCPCS: 36415; 80048; 80076; 83605; 83690; 83735; 84484; 85025; 93005; 93010; 96365; 96366; 96367; 96375; 96376; 99283-25; A9270; J2405; J3475; J3480; J7030

== ENCOUNTER 2022-04-12 15:17 | Emergency (ER) | payer OTHER ==
[~2022-04-12] VITALS: Ht 188 cm; Wt 99.8 kg
[~2022-04-12 15:17] MED LIST changes: +ALMACONE SUSPE355 ML PO; +FAMO20 PO; +ONDA4ODT MM
[2022-04-12 16:08] LABS: BASOPHILS ABSOLUTE AUTO 0.07 K/mm3 (0.00-0.23); BASOPHILS PERCENT AUTO 1 % (0-2); EOSINOPHILS ABSOLUTE AUTO 0.76 K/mm3 (0.00-0.68); EOSINOPHILS PERCENT AUTO 10 % (0-6); Hematocrit 39.1 % (37.0-53.0); Hemoglobin 13.5 g/dL (13.5-17.5); IMMATURE GRAN ABSOLUTE AUTO 0.04 K/mm3 (0.00-0.10); IMMATURE GRAN PERCENT AUTO 1 % (0-1); LYMPHOCYTES ABSOLUTE AUTO 2.08 K/mm3 (0.84-5.20); LYMPHOCYTES PERCENT AUTO 28 % (21-46); MONOCYTES ABSOLUTE AUTO 0.59 K/mm3 (0.16-1.47); MONOCYTES PERCENT AUTO 8 % (4-13); Mean Corpuscular HGB 31.7 pg (26.0-34.0); Mean Corpuscular HGB Conc 34.5 g/dL (31.5-36.5); Mean Corpuscular Volume 92 fL (80-100); Mean Platelet Volume 9.5 fL (9.1-12.4); NEUTROPHILS ABSOLUTE AUTO 3.92 K/mm3 (1.96-9.15); NEUTROPHILS PERCENT AUTO 53 % (41-73); Platelet Count 398 K/mm3 (150-400); RDW Coefficient Variation 12.4 % (11.7-14.2); RDW Standard Deviation 42.1 fL (35.1-46.3); Red Blood Cell Count 4.26 M/mm3 (4.30-5.90); White Blood Cell Count 7.46 K/mm3 (4.00-11.30)
[2022-04-12 16:21] LABS: Alanine Aminotransfer (ALT/SGP 19 U/L (12-78); Albumin, Blood 1.1 g/dL (3.4-5.0); Albumin/Globulin Ratio 0.3 (0.8-1.8); Alk Phos 82 U/L (50-136); Anion Gap 5 mmol/L (6-16); Aspartate Aminotrans (AST/SGOT 19 U/L (12-37); Bilirubin, Total <0.1 mg/dL (0.1-1.0); Blood Urea Nitrogen 24 mg/dL (8-24); Bun/Creatinine Ratio 22.4 (12.0-20.0); CO2, Blood 24 mmol/L (21-32); Calcium, Blood 8.1 mg/dL (8.5-10.1); Chloride, Blood 108 mmol/L (98-108); Creatinine, Blood 1.07 mg/dL (0.60-1.20); Globulin, Blood 3.9 g/dL (2.2-4.0); Glomerular Filtration Rate 81 (60-); Glucose, Blood 170 mg/dL (70-99); Potassium, Blood 4.3 mmol/L (3.5-5.5); Sodium, Blood 137 mmol/L (136-145)
[2022-04-12] MEDS ORDERED: HYDHCL25 PO (17:37)
[2022-04-12] MEDS ORDERED: PRED10 PO (17:37)
== END 2022-04-12 17:50 | disposition home or self-care (01) ==
LOC: ER 15:17
PROVIDERS: Physician Assistant
DX: L30.9 Dermatitis, unspecified (principal); I10 Essential (primary) hypertension; E11.9 Type 2 diabetes mellitus without complications; Z79.890 Hormone replacement therapy; Z79.899 Other long term (current) drug therapy; Z91.030 Bee allergy status; Z87.891 Personal history of nicotine dependence
CPT/HCPCS: 36415; 80053; 83690; 85025; A9270; J7512

== ENCOUNTER → 2022-04-28 | Outpatient (CLI) | payer OTHER ==
[~2022-04-28] MED LIST changes: +HYDHCL25 PO; +PRED10 PO; +Prednisone20 MG PO
== END | disposition home or self-care (01) ==
LOC: LAB SHORT 17:19 → LAB 17:19
DX: L03.119 Cellulitis of unspecified part of limb (principal)
CPT/HCPCS: 87070; 87077; 87186; 87205

== ENCOUNTER 2022-05-01 23:06 | Emergency (ER) | payer OTHER ==
[~2022-05-01] VITALS: Ht 188 cm; Wt 106.6 kg
[~2022-05-01 23:06] MED LIST changes: -Prednisone20 MG PO
[2022-05-01] MEDS ORDERED: Prednisone20 MG PO (23:33)
== END 2022-05-01 23:45 | disposition home or self-care (01) ==
LOC: ER 23:06
DX: L25.9 Unspecified contact dermatitis, unspecified cause (principal); I10 Essential (primary) hypertension; E11.40 Type 2 diabetes mellitus with diabetic neuropathy, unspecified; Z91.030 Bee allergy status; Z79.899 Other long term (current) drug therapy; Z87.891 Personal history of nicotine dependence
CPT/HCPCS: J7512

== ENCOUNTER 2022-05-10 12:27 | Emergency (ER) | payer OTHER ==
[~2022-05-10] VITALS: Ht 188 cm; Wt 106.6 kg
[~2022-05-10 12:27] MED LIST changes: +Prednisone20 MG PO
[2022-05-10] MEDS ORDERED: HYDHCL25 PO (13:54)
== END 2022-05-10 14:04 | disposition home or self-care (01) ==
LOC: ER 12:27
DX: L30.9 Dermatitis, unspecified (principal); I10 Essential (primary) hypertension; E11.40 Type 2 diabetes mellitus with diabetic neuropathy, unspecified; Z87.891 Personal history of nicotine dependence
CPT/HCPCS: 99282

== ENCOUNTER 2022-06-03 15:20 | Inpatient (IN) | payer OTHER ==
[~2022-06-03] VITALS: Ht 188 cm; Wt 122.5 kg
[2022-06-03 19:33] LABS: BASOPHILS ABSOLUTE AUTO 0.09 K/mm3 (0.00-0.23); BASOPHILS PERCENT AUTO 1 % (0-2); EOSINOPHILS ABSOLUTE AUTO 0.85 K/mm3 (0.00-0.68); EOSINOPHILS PERCENT AUTO 8 % (0-6); Hematocrit 32.7 % (37.0-53.0); Hemoglobin 11.4 g/dL (13.5-17.5); IMMATURE GRAN ABSOLUTE AUTO 0.07 K/mm3 (0.00-0.10); IMMATURE GRAN PERCENT AUTO 1 % (0-1); LYMPHOCYTES ABSOLUTE AUTO 2.17 K/mm3 (0.84-5.20); LYMPHOCYTES PERCENT AUTO 21 % (21-46); MONOCYTES ABSOLUTE AUTO 0.97 K/mm3 (0.16-1.47); MONOCYTES PERCENT AUTO 9 % (4-13); Mean Corpuscular HGB 31.3 pg (26.0-34.0); Mean Corpuscular HGB Conc 34.9 g/dL (31.5-36.5); Mean Corpuscular Volume 90 fL (80-100); Mean Platelet Volume 8.7 fL (9.1-12.4); NEUTROPHILS ABSOLUTE AUTO 6.39 K/mm3 (1.96-9.15); NEUTROPHILS PERCENT AUTO 61 % (41-73); Platelet Count 604 K/mm3 (150-400); RDW Coefficient Variation 13.2 % (11.7-14.2); RDW Standard Deviation 43.8 fL (35.1-46.3); Red Blood Cell Count 3.64 M/mm3 (4.30-5.90); White Blood Cell Count 10.54 K/mm3 (4.00-11.30)
[2022-06-03 19:58] LABS: Albumin, Blood 1.1 g/dL (3.4-5.0); Albumin/Globulin Ratio 0.3 (0.8-1.8); Bilirubin, Total 0.4 mg/dL (0.1-1.0); Bun/Creatinine Ratio 33.3 (12.0-20.0); Calcium, Blood 7.8 mg/dL (8.5-10.1); Creatinine, Blood 2.58 mg/dL (0.60-1.20); Globulin, Blood 4.1 g/dL (2.2-4.0); Potassium, Blood 4.7 mmol/L (3.5-5.5); Total Protein, Blood 5.2 g/dL (6.4-8.2)
[2022-06-03] MEDS ORDERED: SPIR25 PO (23:45)
[2022-06-03 23:59] LABS: Source, Urine Clean Catch
[2022-06-04 00:07] LABS: Bilirubin, Urine Neg (Neg); Blood, Urine 4+ (Neg); Glucose Qualitative, Urine Neg (Neg); Ketones, Urine 1+ (Neg); Leukocyte Esterase, Urine Neg (Neg); Nitrite, Urine Neg (Neg); Protein, Urine 4+ (Neg); Specific Gravity, Urine 1.015 (1.003-1.022); Urobilinogen, Urine NORM (Normal)
[2022-06-04 00:19] LABS: BASOPHILS ABSOLUTE AUTO 0.08 K/mm3 (0.00-0.23); BASOPHILS PERCENT AUTO 1 % (0-2); EOSINOPHILS ABSOLUTE AUTO 0.43 K/mm3 (0.00-0.68); EOSINOPHILS PERCENT AUTO 4 % (0-6); Hematocrit 31.2 % (37.0-53.0); Hemoglobin 10.7 g/dL (13.5-17.5); IMMATURE GRAN ABSOLUTE AUTO 0.05 K/mm3 (0.00-0.10); IMMATURE GRAN PERCENT AUTO 0 % (0-1); LYMPHOCYTES ABSOLUTE AUTO 1.87 K/mm3 (0.84-5.20); LYMPHOCYTES PERCENT AUTO 17 % (21-46); MONOCYTES ABSOLUTE AUTO 0.84 K/mm3 (0.16-1.47); MONOCYTES PERCENT AUTO 8 % (4-13); Mean Corpuscular HGB 30.6 pg (26.0-34.0); Mean Corpuscular HGB Conc 34.3 g/dL (31.5-36.5); Mean Corpuscular Volume 89 fL (80-100); Mean Platelet Volume 8.6 fL (9.1-12.4); NEUTROPHILS ABSOLUTE AUTO 7.92 K/mm3 (1.96-9.15); NEUTROPHILS PERCENT AUTO 71 % (41-73); Platelet Count 580 K/mm3 (150-400); RDW Coefficient Variation 13.2 % (11.7-14.2); RDW Standard Deviation 43.6 fL (35.1-46.3); White Blood Cell Count 11.19 K/mm3 (4.00-11.30)
[2022-06-04 00:28] LABS: Appearance, Urine Hazy (Clear); Color, Urine Pale Yellow (P-Yellow)
[2022-06-04 00:29] LABS: Bacteria Mod /hpf; Hyaline Casts 0-2 /lpf (0-2); Red Blood Cells, Urine 0-2 /hpf (0-2); Squamous Epithelial Cells Rare /hpf (Few); White Blood Cells, Urine 0-2 /hpf (0-5)
[2022-06-04 00:42] LABS: Free Thyroxine 0.67 ng/dL (0.70-1.60)
[2022-06-04 00:45] LABS: Albumin, Blood 1.5 g/dL (3.4-5.0); Albumin/Globulin Ratio 0.4 (0.8-1.8); Bilirubin, Total 0.2 mg/dL (0.1-1.0); Bun/Creatinine Ratio 34.7 (12.0-20.0); Calcium, Blood 7.6 mg/dL (8.5-10.1); Creatinine, Blood 2.51 mg/dL (0.60-1.20); Globulin, Blood 3.8 g/dL (2.2-4.0); Potassium, Blood 4.3 mmol/L (3.5-5.5); Thyroid Stimulating Hormone 10.9 uIU/mL (0.360-4.800); Total Protein, Blood 5.3 g/dL (6.4-8.2)
[2022-06-04 05:39] LABS: Hematocrit 30.7 % (37.0-53.0); Hemoglobin 10.7 g/dL (13.5-17.5)
[2022-06-04 06:10] LABS: Albumin, Blood 1.3 g/dL (3.4-5.0); Anion Gap 9 mmol/L (6-16); Blood Urea Nitrogen 87 mg/dL (8-24); Bun/Creatinine Ratio 35.1 (12.0-20.0); CO2, Blood 19 mmol/L (21-32); Calcium, Blood 7.7 mg/dL (8.5-10.1); Chloride, Blood 106 mmol/L (98-108); Creatinine, Blood 2.48 mg/dL (0.60-1.20); Glomerular Filtration Rate 30 (60-); Glucose, Blood 127 mg/dL (70-99); Magnesium, Blood 2.6 mg/dL (1.6-2.4); Phosphorus, Blood 6.1 mg/dL (2.5-4.9); Potassium, Blood 4.2 mmol/L (3.5-5.5); Sodium, Blood 134 mmol/L (136-145)
--- NOTE | 2022-06-04 06:19 | NUR ---
PATIENT ARRIVED FROM ED AT 0000. PATIENT ON 1000 CC A DAY FLUID RESTRICTION. PATIENT HAS RED RASH ALL OVER BODY DR SUSPECTS PSORASIS. PATIENT TO SEE WELFARE PROJECT MANAGER OUTPATIENT. PATIENT A&O, 20 RAC, ROOM AIR. NO EVENTS OVERNIGHT
--- NOTE | 2022-06-04 16:28 | NUR ---
Shift Summary report Report given at bedside. Pt alert and orientedx3, Pt complaining of hip pain states that "I was in a too small wheelchair and in the ER and i think the friction". Asked for some pain medication for patient and helped patiet reposition in bed. Pt resting comfortably. US done at bedside this morning. Pt spoke with family preservation caseworker and stated "he wants to get more serious about taking care of his HTN, and diabetes. Pt given tylenol for pain. Urinating frequently because of Lasix. Will continue to monitor.
--- NOTE | 2022-06-04 21:36 | NUR ---
CALLED DR ABEL REGARDING PATIENT PAIN. PATIENT PAIN LEVEL 10/10 IN GROIN TO TESTES AREA. PATIENT EDEMATOUS IN TESTES WITH 3RD SPACING. ALSO, PATIENT HAVING SEVERE ITCHING FROM CURRENT RASH. ORDERS GIVEN FOR BENADRYL AND PAIN MEDICATION
--- NOTE | 2022-06-05 06:13 | NUR ---
PATIENT IN PAIN AND ITCHING THROUGHOUT SHIFT. ALERT AND ORIENTED, ROOM AIR, SR ON TELE, 1 ASSIST, URINAL, CARDIAC DIET, ON 1000 CC DAILY FLUID RESTRICTION. RASH IS STILL PERSISTENT
[2022-06-05 06:44] LABS: Calcium, Blood 7.9 mg/dL (8.5-10.1); Creatinine, Blood 2.38 mg/dL (0.60-1.20); Potassium, Blood 3.6 mmol/L (3.5-5.5)
--- NOTE | 2022-06-05 18:22 | NUR ---
Received report from ongoing nurse. Pt complaining about pain soon as I walked in. Nurse had recently given patient medication. did morning rounds and put in a muscle relaxer for patient. Pain medication also given to patient this morning. Pt pulled out IV AT 1300. Stated he had no clue he pulled it out. NEW 20 gauge IV in right AC placed. Pt slept most of the day and complained of pain again about 1600. Pt received dinner tray and is sleep and eating.
[2022-06-06 04:52] LABS: Hematocrit 29.4 % (37.0-53.0); Hemoglobin 10.2 g/dL (13.5-17.5)
[2022-06-06 05:11] LABS: Albumin, Blood 0.9 g/dL (3.4-5.0); Anion Gap 4 mmol/L (6-16); Blood Urea Nitrogen 78 mg/dL (8-24); Bun/Creatinine Ratio 32.5 (12.0-20.0); CO2, Blood 27 mmol/L (21-32); Calcium, Blood 7.3 mg/dL (8.5-10.1); Chloride, Blood 106 mmol/L (98-108); Glomerular Filtration Rate 31 (60-); Glucose, Blood 166 mg/dL (70-99); Magnesium, Blood 2.6 mg/dL (1.6-2.4); Phosphorus, Blood 5.1 mg/dL (2.5-4.9); Potassium, Blood 3.2 mmol/L (3.5-5.5); Sodium, Blood 137 mmol/L (136-145)
--- NOTE | 2022-06-06 06:32 | NUR ---
PATIENT IN PAIN THROUGHOUT SHIFT. ALERT AND ORIENTED, ROOM AIR, 20 RAC, USES URINAL. NO EVENTS OVER NIGHT
[2022-06-07 05:08] LABS: Hemoglobin 9.9 g/dL (13.5-17.5)
[2022-06-07 05:31] LABS: Magnesium, Blood 2.4 mg/dL (1.6-2.4)
[2022-06-07 05:33] LABS: Albumin, Blood 0.9 g/dL (3.4-5.0); Anion Gap 7 mmol/L (6-16); Blood Urea Nitrogen 77 mg/dL (8-24); Bun/Creatinine Ratio 32.5 (12.0-20.0); CO2, Blood 27 mmol/L (21-32); Calcium, Blood 7.3 mg/dL (8.5-10.1); Chloride, Blood 102 mmol/L (98-108); Creatinine, Blood 2.37 mg/dL (0.60-1.20); Glomerular Filtration Rate 31 (60-); Glucose, Blood 130 mg/dL (70-99); Phosphorus, Blood 5.1 mg/dL (2.5-4.9); Sodium, Blood 136 mmol/L (136-145)
--- NOTE | 2022-06-07 06:39 | NUR ---
ALERT AND ORIENTED, ROOM AIR, 20 RIGHT HAND, URINAL, SR ON TELE. PATIENT REFUSES TO FOLLOW FLUID RESTRICTIONS. MODERATE TO SEVERE PAIN THROUGHOUT SHIFT. NO EVENTS OVERNIGHT
--- NOTE | 2022-06-07 17:45 | NUR ---
Bedside report giving from ongoing nurse. Pt complaining about rash. Made patient aware that he needs to get in the shower so we can put the ointment on clean skin. Pt took a shower and was able to get up independtly. Pt doing much better after zinc ointment and benadryl. Pt resting comfortably in bed with no complaints.
[2022-06-08 04:43] LABS: Hematocrit 29.4 % (37.0-53.0); Hemoglobin 10.1 g/dL (13.5-17.5)
[2022-06-08 06:32] LABS: Magnesium, Blood 2.4 mg/dL (1.6-2.4)
[2022-06-08 06:34] LABS: Albumin, Blood 0.8 g/dL (3.4-5.0); Anion Gap 6 mmol/L (6-16); Blood Urea Nitrogen 67 mg/dL (8-24); Bun/Creatinine Ratio 26.8 (12.0-20.0); CO2, Blood 26 mmol/L (21-32); Calcium, Blood 7.5 mg/dL (8.5-10.1); Chloride, Blood 104 mmol/L (98-108); Glomerular Filtration Rate 29 (60-); Glucose, Blood 157 mg/dL (70-99); Phosphorus, Blood 4.5 mg/dL (2.5-4.9); Potassium, Blood 3.5 mmol/L (3.5-5.5); Sodium, Blood 136 mmol/L (136-145)
--- NOTE | 2022-06-08 18:19 | NUR ---
PATIENT A/OX4, CALM AND COOPERATIVE WITH CARE. PAIN BETTER MANAGED TODAY PER PATIENT. FENTANYL, NORCO AND FLEXERIL TO TREAT GROIN/LEG PAIN. DERMATOLOGY CONSULT CALLED TODAY FOR WIDESPREAD RASH/PSORIASIS. DIURESING WITH GOOD U/O. LEGS OPEN AND WEEPING, 4+ EDEMA TO BLE, GENERALIZED ANASARCA. VSS, ON RA. SR ON TELE, NO C/O OF SOB OR CP. UP ONCE TODAY, NEEDS ENCOURAGEMENT TO GET OOB. 1L FLUID RESTRICTION. CALLS APPROPRIATELY FOR ASSISTANCE.
[2022-06-09 05:33] LABS: Hematocrit 29.6 % (37.0-53.0); Hemoglobin 9.9 g/dL (13.5-17.5)
--- NOTE | 2022-06-09 07:06 | NUR ---
PT RESTING IN BED NO S/S OF ACUTE DISTRESS, SAFETY MEASURES IN PLACE WILL CONTINUE TO MONITOR.
[2022-06-09 07:34] LABS: Magnesium, Blood 2.6 mg/dL (1.6-2.4)
[2022-06-09 08:04] LABS: Albumin, Blood 0.8 g/dL (3.4-5.0); Anion Gap 5 mmol/L (6-16); Blood Urea Nitrogen 79 mg/dL (8-24); CO2, Blood 26 mmol/L (21-32); Chloride, Blood 104 mmol/L (98-108); Glucose, Blood 129 mg/dL (70-99); Potassium, Blood 3.5 mmol/L (3.5-5.5); Sodium, Blood 135 mmol/L (136-145)
[2022-06-09 08:35] LABS: Bun/Creatinine Ratio 31.2 (12.0-20.0); Calcium, Blood 7.9 mg/dL (8.5-10.1); Creatinine, Blood 2.53 mg/dL (0.60-1.20); Glomerular Filtration Rate 29 (60-); Phosphorus, Blood 4.5 mg/dL (2.5-4.9)
--- NOTE | 2022-06-09 17:37 | NUR ---
PATIENT A/OX4, UP INDEPENDENTLY IN ROOM. VSS, ON RA. REPORTS PAIN TO GROIN AND LEGS HAS IMPROVED TODAY. MEDICATED WITH NORCO X2 AND FENTANYL X1 FOR BREAKTHROUGH PAIN. ANASARCA WITH 3+ EDEMA TO BILATERAL UPPER AND LOWER EXREMITIES. PATINET VOIDING IN URINAL, GOOD U/O THIS SHIFT. 1L FLUID RESTRICTION, PATIENT MORE COMPLIANT WITH THAT TODAY. DEMATOLOGIST CAME TO SEE PATIENT TODAY AND TOOK BIOPSIES. RASH APPEARS TO BE IMPROVING. 20G IV TO R AC WNL AND SL. PATIENT CALM AND COOPERATIVE WITH CARE, CALLS APPROPRIATELY FOR ASSISTANCE.
--- NOTE | 2022-06-10 06:05 | NUR ---
NEURO Aox4, pupils +3 PERLLA bilateral with clear white sclera. States decreased sensation to bilateral Lower extremities. Resp Room air Clear lungs CV HR 70 regular, audible in S1S2 with no adventitious sounds. Pulses +2 BUE and +1 Faint BLE s/t DB neuropathy GI ADA diet, bowel sounds audible in all quadrants. No nausea or vomiting Urine clear moses, no foul odor. Voids in urinal and declines pain with urination Musc Able to move all extrimities, strong BUE veneer splicer. Pain and weakness to BLE. Medicated for pain 7/10 to BLE with [place] and Benadryl for itchyness at 0600.
[2022-06-10 08:11] LABS: Albumin, Blood 0.8 g/dL (3.4-5.0); Anion Gap 6 mmol/L (6-16); Blood Urea Nitrogen 82 mg/dL (8-24); Bun/Creatinine Ratio 34.6 (12.0-20.0); CO2, Blood 28 mmol/L (21-32); Calcium, Blood 7.9 mg/dL (8.5-10.1); Chloride, Blood 105 mmol/L (98-108); Creatinine, Blood 2.37 mg/dL (0.60-1.20); Glomerular Filtration Rate 31 (60-); Glucose, Blood 118 mg/dL (70-99); Magnesium, Blood 2.7 mg/dL (1.6-2.4); Phosphorus, Blood 4.1 mg/dL (2.5-4.9); Potassium, Blood 3.6 mmol/L (3.5-5.5); Sodium, Blood 139 mmol/L (136-145)
--- NOTE | 2022-06-10 14:23 | NUR ---
CALLED DR Laureano RODRIGUEZ'S OFFICE KENALOG OINTMENT WAS ORDERED AND IS ONLY AVAILABLE IN SMALL QUANTITY, THE CREAM IS AVAILABLE IN LARGER VOLUME. THE PT NEEDS A LARGE AREA OF COVERAGE, CREAM MAY BE MORE SUITED, CALLED DERMATOLOGY TO CLARIFY CREAM OR OINTMENT. PER DR RODRIGUEZ OK TO SWITCH TO THE CREAM.
--- NOTE | 2022-06-10 17:54 | NUR ---
NO ACUTE CHANGES THIS SHIFT. PATIENT SHOWERED AND TRIAMCINILONE OINTMENT APPLIED TO RASH. RASH APPEARS TO HAVE SLIGHTLY IMPROVED. REMAINS ON ADA DIET WITH 1L FLUID RESTRICTION, PATIENT HAS BEEN COMPLIANT. VSS, ON RA. REPORTS GROIN/LEG PAIN HAS IMPROVED. NORCO GIVEN X2 THIS SHIFT TO TREAT. UP INDEPENDENTLY, WALKED IN HALLS TODAY. NO NEW CONCERNS TODAY.
[2022-06-11 05:50] LABS: Hematocrit 30.4 % (37.0-53.0); Hemoglobin 10.2 g/dL (13.5-17.5)
[2022-06-11 06:12] LABS: Albumin, Blood 0.8 g/dL (3.4-5.0); Anion Gap 6 mmol/L (6-16); Blood Urea Nitrogen 77 mg/dL (8-24); Bun/Creatinine Ratio 30.6 (12.0-20.0); CO2, Blood 28 mmol/L (21-32); Calcium, Blood 7.9 mg/dL (8.5-10.1); Chloride, Blood 104 mmol/L (98-108); Creatinine, Blood 2.52 mg/dL (0.60-1.20); Glomerular Filtration Rate 29 (60-); Glucose, Blood 115 mg/dL (70-99); Magnesium, Blood 2.3 mg/dL (1.6-2.4); Phosphorus, Blood 4.5 mg/dL (2.5-4.9); Potassium, Blood 3.4 mmol/L (3.5-5.5); Sodium, Blood 138 mmol/L (136-145)
--- NOTE | 2022-06-11 07:22 | NUR ---
PLesant rhrought the shift, AOX4. Medicated x2 for pain 7/10 to lower legs. Lung sounds clear bilateral, no sob, room air. Abdomen soft, non distended, without tenderness. Voids independently to Urinal and Bathroom.
--- NOTE | 2022-06-11 14:28 | NUR ---
PATIENT EDUCATED TO STAY ON [address] FLOOR OF HOSPITAL, PATIENT HAS BEEN OFF THE MEDICAL FLOOR SINCE 1404, REPORTED TO PERFORMANCE SOLUTIONS SPECIALIST, BROADCASTED CALL FOR PATIENT TO RETURN TO THE ROOM, L AND R IV S.L., WILL RELAY TO DR ABEL
--- NOTE | 2022-06-11 14:39 | NUR ---
REPORTED TO DR PAGE Walker ABSENT FROM THE FLOOR, TO GET UA WHEN PATIENT ARRIVE
--- NOTE | 2022-06-11 18:25 | NUR ---
ALERT AND ORIENTED, MAKES NEEDS KNOWN, POSSIBLE DISCHARGE TOMORROW, PATIENT EDUCATED ON NOT LEAVING THE THIRD FLOOR FOR WALK, GOING TO THE KITCHEN, AND JUST HANGING OUT IN ER LOBBY. VSS, OUTPUT INCREASED FROM LASIX GTT. PATENT APPLYING CREAM INDEPEDENTLY. INDEPEDENT IN THE ROOM, USES CALL LIGHT NO ACUTE CHANGES WILL RELAY TO PM RN
[2022-06-11 18:44] LABS: U Amphetamine Screen Not Detected; U Barbituate Screen Not Detected; U Benzodiazapine Screen Not Detected; U Buprenorphine Screen Not Detected; U Cannabinoids Screen DETECTED; U Cocaine Screen Not Detected; U Methadone Screen Not Detected; U Methamphetamine Screen Not Detected; U Opiates Screen DETECTED; U Oxycodone Screen Not Detected; U Phencyclidine Screen Not Detected; U Propoxyphene Screen Not Detected
--- NOTE | 2022-06-12 04:04 | NUR ---
Patient AOX4, able to communicate needs and wants. Educated about unit safety and boundaries in regards not leaving the carranza. lung sounds clear, denies SOB. Ambulates in room independently. Took all medications whole and had a snack at midnight. medicated for pain with norco x2 during the shift.
[2022-06-12 09:06] LABS: BASOPHILS ABSOLUTE AUTO 0.08 K/mm3 (0.00-0.23); BASOPHILS PERCENT AUTO 1 % (0-2); EOSINOPHILS ABSOLUTE AUTO 0.24 K/mm3 (0.00-0.68); EOSINOPHILS PERCENT AUTO 2 % (0-6); Hematocrit 31.4 % (37.0-53.0); Hemoglobin 10.7 g/dL (13.5-17.5); IMMATURE GRAN ABSOLUTE AUTO 0.22 K/mm3 (0.00-0.10); IMMATURE GRAN PERCENT AUTO 2 % (0-1); LYMPHOCYTES ABSOLUTE AUTO 1.96 K/mm3 (0.84-5.20); LYMPHOCYTES PERCENT AUTO 16 % (21-46); MONOCYTES PERCENT AUTO 7 % (4-13); Mean Corpuscular HGB 30.6 pg (26.0-34.0); Mean Corpuscular HGB Conc 34.1 g/dL (31.5-36.5); Mean Corpuscular Volume 90 fL (80-100); Mean Platelet Volume 8.6 fL (9.1-12.4); NEUTROPHILS ABSOLUTE AUTO 8.98 K/mm3 (1.96-9.15); NEUTROPHILS PERCENT AUTO 73 % (41-73); Platelet Count 421 K/mm3 (150-400); RDW Coefficient Variation 13.2 % (11.7-14.2); RDW Standard Deviation 43.4 fL (35.1-46.3); White Blood Cell Count 12.28 K/mm3 (4.00-11.30)
[2022-06-12 09:27] LABS: Albumin, Blood 0.8 g/dL (3.4-5.0); Anion Gap 6 mmol/L (6-16); Blood Urea Nitrogen 64 mg/dL (8-24); Bun/Creatinine Ratio 27.1 (12.0-20.0); CO2, Blood 26 mmol/L (21-32); Calcium, Blood 7.7 mg/dL (8.5-10.1); Chloride, Blood 103 mmol/L (98-108); Creatinine, Blood 2.36 mg/dL (0.60-1.20); Glomerular Filtration Rate 32 (60-); Glucose, Blood 177 mg/dL (70-99); Phosphorus, Blood 3.8 mg/dL (2.5-4.9); Potassium, Blood 3.5 mmol/L (3.5-5.5); Sodium, Blood 135 mmol/L (136-145)
--- NOTE | 2022-06-12 17:04 | NUR ---
SHIFT SUMMARY NO ACUTE CHANGES NOTED DURING SHIFT. PT ALERT AND ORIENTED, CALLS APPROPRIATELY. PT STILL C/O PAIN, MEDICATED X 2 WITH PRN MEDICATIONS. LASIX TRANSITIONED TO PO. PT INDEPENDENT IN ROOM AND HALLWAYS, REINFORCED PT MUST STAY ON UNIT. PT REMAINS ON RA. WILL CONTINUE TO MONITOR. CALL LIGHT WITHIN REACH.
[2022-06-13 03:18] LABS: Hemoglobin 10.7 g/dL (13.5-17.5)
[2022-06-13 03:44] LABS: Albumin, Blood 0.7 g/dL (3.4-5.0); Anion Gap 7 mmol/L (6-16); Blood Urea Nitrogen 61 mg/dL (8-24); Bun/Creatinine Ratio 24.8 (12.0-20.0); CO2, Blood 25 mmol/L (21-32); Calcium, Blood 7.4 mg/dL (8.5-10.1); Chloride, Blood 101 mmol/L (98-108); Creatinine, Blood 2.46 mg/dL (0.60-1.20); Glomerular Filtration Rate 30 (60-); Glucose, Blood 133 mg/dL (70-99); Magnesium, Blood 1.9 mg/dL (1.6-2.4); Phosphorus, Blood 3.6 mg/dL (2.5-4.9); Potassium, Blood 3.1 mmol/L (3.5-5.5); Sodium, Blood 133 mmol/L (136-145)
--- NOTE | 2022-06-13 05:00 | NUR ---
301 End of shift Summary Mr Leo was admitted 06/03/2022 with fluid overload, generalized rash in Xuvsycc-Uvqatz-ued extremities, and edema to all extremities. He is AOX4, able to express needs and wants and ambulates independently in room and hallways. Edema +2 BUE and BLE. States decreased SOB with activity. Medicated with NORCO x2 for pain to legs. K+ 3.1 this am and replaced with 40MEQ Potassium IVP. Aldactone 50mg increased from BID to TID. Plan to DC today in the AM
[2022-06-13] MEDS ORDERED: EUTHYROX75 MCG PO (12:55)
[2022-06-13] MEDS ORDERED: Triamcinolone A15 G3 TOP (12:58)
[2022-06-13] MEDS ORDERED: ZINC OXIDE57 GM TOP (12:59)
--- NOTE | 2022-06-13 15:00 | NUR ---
DISCHARGE NOTE PT'S IV WAS REMOVED BY JESUS SEAMAN. JAHAIRA PHELPS REVIEWED DISCHARGE INSTRUCTIONS WITH PT, INCLUDING APPTS TO KEEP WITH DERM, NEPHRO AND FAMILY MEDICINE. NEW MEDS FAXED TO [facility]. PT WAS WHEELED DOWN TO PATIENT ENTRANCE VIA WHEELCHAIR, WITH ALL PERSONAL BELONGINGS. PT TRANSPORTED IN PRIVATE VEHICLE DRIVEN BY .
--- NOTE | 2022-06-13 15:58 | NUR ---
SHIFT SUMMARY PT IS a&O X4. HE IS RESTLESS, AND MOVES AROUND THE UNIT, BUT DOES NOT LEAVE THE UNIT. HE IS INDEPENDENT IN ROOM. IV ACCESS TO L AC. REQUESTS PAIN MEDICATION PRN FOR PAIN R/T HIP, AND LEGS. ROOM AIR. PT WAS VISITED BY CLOTH LAYER DR. RODRIGUEZ, WHO EVALUATED HIS RASH. FLUID RESTRICTION TO 1LITER PER DAY. BLE EDEMA WITH RED, DRY, ITCHY FLAKEY SKIN. SCAB LIKE RASH SCATTERED THROUGH OUT HIS BODY, PT IS APPLYING TRIAMCINOLONE CREAM INDEPENDENTLY TO THE RASH. HE IS ABLE TO CALL TO EXPRESS HIS NEEDS.
== END 2022-06-13 15:43 | disposition home or self-care (01) | DRG 683 ==
LOC: ER 15:20 → MEDS 23:37
PROVIDERS: Internal Medicine; Internal Medicine Nephrology; Student in an Organized Health Care Education/Training Program; ADMIT Internal Medicine
PROC: 0HBBXZX Excision of Right Upper Arm Skin, External Approach, Diagnostic (ICD-10-PCS; principal; 2022-06-09)
DX: N17.9 Acute kidney failure, unspecified (principal); E87.1 Hypo-osmolality and hyponatremia; E87.20 Acidosis, unspecified; E88.09 Other disorders of plasma-protein metabolism, not elsewhere classified; N25.81 Secondary hyperparathyroidism of renal origin; E87.70 Fluid overload, unspecified; M54.9 Dorsalgia, unspecified; G89.29 Other chronic pain; E03.9 Hypothyroidism, unspecified; K21.9 Gastro-esophageal reflux disease without esophagitis; N18.30 Chronic kidney disease, stage 3 unspecified; I12.9 Hypertensive chronic kidney disease with stage 1 through stage 4 chronic kidney disease, or unspecified chronic kidney disease; E11.22 Type 2 diabetes mellitus with diabetic chronic kidney disease; L40.9 Psoriasis, unspecified; L27.0 Generalized skin eruption due to drugs and medicaments taken internally; D63.1 Anemia in chronic kidney disease; E87.6 Hypokalemia; E83.39 Other disorders of phosphorus metabolism; E78.5 Hyperlipidemia, unspecified; L23.7 Allergic contact dermatitis due to plants, except food; E66.9 Obesity, unspecified; Z91.038 Other insect allergy status; Z79.899 Other long term (current) drug therapy; Z79.02 Long term (current) use of antithrombotics/antiplatelets; Z79.52 Long term (current) use of systemic steroids; Z90.49 Acquired absence of other specified parts of digestive tract; Z87.891 Personal history of nicotine dependence; Z98.890 Other specified postprocedural states; Z68.30 Body mass index [BMI] 30.0-30.9, adult
CPT/HCPCS: 36415; 71045; 76770; 80048; 80053; 80069; 81001; 82947; 83605; 83690; 83735; 83880; 84439; 84443; 85014; 85018; 85025; 88305; 88312; 93005; 93010; 93306; 96365; 96375; 99285-25; A9270; J0881; J1650; J1940; J2405; J2930; J3010; J3480; J7050; P9047; Q0177

== ENCOUNTER 2022-07-17 18:11 | Inpatient (IN) | payer OTHER ==
[~2022-07-17] VITALS: Ht 188 cm; Wt 106.0 kg
[~2022-07-17 18:11] MED LIST changes: +Cleocin HCl150 MG PO; +EUTHYROX75 MCG PO; +LEVFLO500; +Phospha 250 Ne250 MG PO; +Triamcinolone A15 G3 TOP; +ZINC OXIDE57 GM TOP
[2022-07-17 18:48] LABS: BASOPHILS ABSOLUTE AUTO 0.05 K/mm3 (0.00-0.23); BASOPHILS PERCENT AUTO 1 % (0-2); EOSINOPHILS PERCENT AUTO 15 % (0-6); Hemoglobin 10.5 g/dL (13.5-17.5); IMMATURE GRAN ABSOLUTE AUTO 0.04 K/mm3 (0.00-0.10); IMMATURE GRAN PERCENT AUTO 0 % (0-1); LYMPHOCYTES ABSOLUTE AUTO 2.15 K/mm3 (0.84-5.20); LYMPHOCYTES PERCENT AUTO 24 % (21-46); MONOCYTES ABSOLUTE AUTO 0.56 K/mm3 (0.16-1.47); MONOCYTES PERCENT AUTO 6 % (4-13); Mean Corpuscular HGB 30.2 pg (26.0-34.0); Mean Corpuscular HGB Conc 32.8 g/dL (31.5-36.5); Mean Corpuscular Volume 92 fL (80-100); Mean Platelet Volume 8.1 fL (9.1-12.4); NEUTROPHILS ABSOLUTE AUTO 4.82 K/mm3 (1.96-9.15); NEUTROPHILS PERCENT AUTO 54 % (41-73); Platelet Count 571 K/mm3 (150-400); RDW Coefficient Variation 15.3 % (11.7-14.2); RDW Standard Deviation 51.3 fL (35.1-46.3); Red Blood Cell Count 3.48 M/mm3 (4.30-5.90); White Blood Cell Count 8.92 K/mm3 (4.00-11.30)
[2022-07-17 19:19] LABS: Alanine Aminotransfer (ALT/SGP 27 U/L (12-78); Albumin, Blood 0.8 g/dL (3.4-5.0); Albumin/Globulin Ratio 0.2 (0.8-1.8); Alk Phos 110 U/L (50-136); Anion Gap 5 mmol/L (6-16); Aspartate Aminotrans (AST/SGOT 28 U/L (12-37); Bilirubin, Total <0.1 mg/dL (0.1-1.0); Blood Urea Nitrogen 35 mg/dL (8-24); Bun/Creatinine Ratio 12.5 (12.0-20.0); CO2, Blood 25 mmol/L (21-32); Calcium, Blood 7.8 mg/dL (8.5-10.1); Chloride, Blood 109 mmol/L (98-108); Creatinine, Blood 2.79 mg/dL (0.60-1.20); Globulin, Blood 4.5 g/dL (2.2-4.0); Glomerular Filtration Rate 26 (60-); Glucose, Blood 176 mg/dL (70-99); Potassium, Blood 3.4 mmol/L (3.5-5.5); Sodium, Blood 139 mmol/L (136-145); Total Protein, Blood 5.3 g/dL (6.4-8.2)
[2022-07-17 22:18] LABS: Source, Urine Clean Catch
[2022-07-17 22:25] LABS: Bilirubin, Urine Neg (Neg); Blood, Urine 2+ (Neg); Glucose Qualitative, Urine 3+ (Neg); Ketones, Urine Neg (Neg); Leukocyte Esterase, Urine Neg (Neg); Nitrite, Urine Neg (Neg); Protein, Urine 4+ (Neg); Urobilinogen, Urine NORM (Normal)
[2022-07-17 22:26] LABS: Appearance, Urine Clear (Clear); Color, Urine Yellow (P-Yellow)
[2022-07-17 22:33] LABS: Amorphous Light (0-Heavy); Bacteria Rare /hpf; Hyaline Casts 0-2 /lpf (0-2); Red Blood Cells, Urine 0-2 /hpf (0-2); Squamous Epithelial Cells Rare /hpf (Few); White Blood Cells, Urine 0-2 /hpf (0-5)
[2022-07-17] MEDS ORDERED: FURO80 PO (23:24)
[2022-07-17] MEDS ORDERED: GABA300 PO (23:26)
[2022-07-17] MEDS ORDERED: LOSA50 PO (23:30)
--- NOTE | 2022-07-18 01:10 | NUR ---
DR LOVE TO PT BEDSIDE FOR EVAL. ORDER FOR ADDITIONAL MEDS FOR ITCHING AND ORDER TO CANCEL TELE.
[2022-07-18 01:15] LABS: Anion Gap 7 mmol/L (6-16); Blood Urea Nitrogen 36 mg/dL (8-24); Bun/Creatinine Ratio 12.4 (12.0-20.0); CO2, Blood 22 mmol/L (21-32); Calcium, Blood 7.5 mg/dL (8.5-10.1); Chloride, Blood 110 mmol/L (98-108); Glomerular Filtration Rate 25 (60-); Glucose, Blood 118 mg/dL (70-99); Potassium, Blood 3.7 mmol/L (3.5-5.5); Sodium, Blood 139 mmol/L (136-145)
[2022-07-18 02:01] LABS: Alanine Aminotransfer (ALT/SGP 25 U/L (12-78); Albumin, Blood 0.8 g/dL (3.4-5.0); Albumin/Globulin Ratio 0.2 (0.8-1.8); Alk Phos 95 U/L (50-136); Aspartate Aminotrans (AST/SGOT 31 U/L (12-37); Bilirubin, Direct <0.1 mg/dL (0.0-0.3); Bilirubin, Indirect Unable to Calculate mg/dL (0.1-0.7); Bilirubin, Total <0.1 mg/dL (0.1-1.0); Globulin, Blood 4.3 g/dL (2.2-4.0); Total Protein, Blood 5.1 g/dL (6.4-8.2)
[2022-07-18 05:26] LABS: BASOPHILS ABSOLUTE AUTO 0.02 K/mm3 (0.00-0.23); BASOPHILS PERCENT AUTO 0 % (0-2); EOSINOPHILS ABSOLUTE AUTO 0.06 K/mm3 (0.00-0.68); EOSINOPHILS PERCENT AUTO 1 % (0-6); Hematocrit 28.1 % (37.0-53.0); Hemoglobin 9.7 g/dL (13.5-17.5); IMMATURE GRAN ABSOLUTE AUTO 0.07 K/mm3 (0.00-0.10); IMMATURE GRAN PERCENT AUTO 1 % (0-1); LYMPHOCYTES ABSOLUTE AUTO 1.18 K/mm3 (0.84-5.20); LYMPHOCYTES PERCENT AUTO 12 % (21-46); MONOCYTES PERCENT AUTO 1 % (4-13); Mean Corpuscular HGB 31.1 pg (26.0-34.0); Mean Corpuscular HGB Conc 34.5 g/dL (31.5-36.5); Mean Corpuscular Volume 90 fL (80-100); Mean Platelet Volume 8.2 fL (9.1-12.4); NEUTROPHILS ABSOLUTE AUTO 8.69 K/mm3 (1.96-9.15); NEUTROPHILS PERCENT AUTO 86 % (41-73); Platelet Count 527 K/mm3 (150-400); Red Blood Cell Count 3.12 M/mm3 (4.30-5.90); White Blood Cell Count 10.12 K/mm3 (4.00-11.30)
[2022-07-18 06:21] LABS: Magnesium, Blood 2.4 mg/dL (1.6-2.4)
[2022-07-18 06:22] LABS: Albumin, Blood 0.8 g/dL (3.4-5.0); Albumin/Globulin Ratio 0.2 (0.8-1.8); Bilirubin, Total 0.2 mg/dL (0.1-1.0); Bun/Creatinine Ratio 12.8 (12.0-20.0); Calcium, Blood 7.6 mg/dL (8.5-10.1); Creatinine, Blood 2.98 mg/dL (0.60-1.20); Globulin, Blood 4.4 g/dL (2.2-4.0); Potassium, Blood 3.9 mmol/L (3.5-5.5); Total Protein, Blood 5.2 g/dL (6.4-8.2)
--- NOTE | 2022-07-18 07:20 | NUR ---
DRAFTING TECHNICIAN SUMMARY: PT ARRIVED TO UNIT AT 2313. ELEVATED BP; UNABLE TO HOLD STILL FOR BLOOD PRESSURE READING SECONDARY TO SEVERE PRURITIS AND WRITHING IN DISCOMFORT. RECEIVED DIPHENHYDRAMINE AND HYDROXYZINE IN ED. PROVIDED WITH COOL WASH CLOTH AND ADVISED TO NOT SCRATCH. PT OPTED FOR WARM SHOWER, STATING HE HAD NOT HAD WATER AT HIS HOUSE FOR TWO OR THREE DAYS SINCE SNOW DUE TO BURST WATER PIPE. INC AND TAC OINTMENT APPLIED AFTER SHOWER. ADDITIONAL DOSE IV BENADRYL 25MG x2, HYROXYZINE 50MG PO x2 ADMINISTERED IN ADDITION TO PO NORCO 7.[address] ABEL ALSO ORDERED TWO DOSES OF 125MG PREDNISONE. PT FINALLY GETTING SOME RELIEF OF 0700 THIS AM, BUT STILL CONTINUES TO ITCH AND MOVE ENOUGH BP READINGS WERE UNATTAINABLE. LABS DRAWN AND K+ IMPROVING. BLEs PEELING AND EXCORIATED. OJEDA TO CONSULT THIS AM. REPORT TO ONCHEIDY CAMPO.
--- NOTE | 2022-07-18 16:09 | NUR ---
SHIFT SUMMARY PATIENT IS ALERT AND ORIENTED. PATIENT HAS HAD NO ACUTE EVENTS THIS SHIFT. ALBUMIN INFUSED ORDERED. PATIENT OPTED TO PUT MEDICATED CREAM ON AFFECTED RASH AND REPORTS HE FEELS BETTER AFTER MEDICATED. PATIENT HAS NOT BEEN MEDICATED WITH ANY PRNS TODAY. PATIENT HAS NOT COMPLAINED OF PAIN, SOB, NAUSEA OR VOMITTING THIS SHIFT. PATIENT REPORTS SLIGHT ITCHING IN AFFECTED AREAS BUT IMPROVING. DR OJEDA SAW PATIENT AND ORDERED STRICT I/O AND [address]UID RESTRICTION IN PLACE. BED IN LOCKED AND LOWEST POSITION. CALL LIGHT IN PLACE. WILL MONITOR UNTIL SHIFT CHANGE.
[2022-07-19 04:53] LABS: Hematocrit 27.8 % (37.0-53.0); Hemoglobin 9.1 g/dL (13.5-17.5)
[2022-07-19 05:18] LABS: Albumin, Blood 1.1 g/dL (3.4-5.0); Anion Gap 8 mmol/L (6-16); Blood Urea Nitrogen 53 mg/dL (8-24); Bun/Creatinine Ratio 15.3 (12.0-20.0); CO2, Blood 19 mmol/L (21-32); Calcium, Blood 7.8 mg/dL (8.5-10.1); Chloride, Blood 110 mmol/L (98-108); Creatinine, Blood 3.46 mg/dL (0.60-1.20); Glomerular Filtration Rate 20 (60-); Glucose, Blood 193 mg/dL (70-99); Magnesium, Blood 2.8 mg/dL (1.6-2.4); Phosphorus, Blood 6.3 mg/dL (2.5-4.9); Potassium, Blood 3.9 mmol/L (3.5-5.5); Sodium, Blood 137 mmol/L (136-145)
--- NOTE | 2022-07-19 05:23 | NUR ---
PT A&OX 4, PT INDEPENDENT IN ROOM- PT REPORTS RASH HAS DECREASED OVER HIS BODY AND ITCHING HAS DECREASED- GAVE NORCO PRN FOR HEADACHE, PT SLEPT T/O NIGHT
[2022-07-19 12:58] LABS: White Blood Cells Urine 0-2 /hpf (0-5)
[2022-07-19 13:03] LABS: Eosinophils-Raw #,Urine 0
--- NOTE | 2022-07-19 16:16 | NUR ---
SHIFT SUMMARY PATIENT IS ALERT AND ORIENTED. PATIENT HAS HAD NO ACUTE EVENTS THIS SHIFT. VITAL SIGNS REVIEWED. PATIENT HAS BEEN FEELING BETTER AND RASH LOOKS DIMINISHED. PATIENT HAS HAD PAIN THIS MORNING AND MEDICATED PER EMAR. PATIENT HAS HAD NO COMPLAINTS OF SOB, NAUSEA OR SOB THIS SHIFT. BED IN LOCKED AND LOWEST POSITION. CALL LIGHT IN PLACE. WILL MONITOR UNTIL SHIFT CHANGE.
--- NOTE | 2022-07-19 20:16 | NUR ---
ASSUMED CARE - REPORT FROM PABLO CAMPO DAYSHIFT- PT LAYING IN BED DURING BEDSIDE REPORT- PT REQUESTED PAIN MEDICATION FOR LEG/FEET PAIN AND MILK FOR UPSET STOMACH- PT REPORTED MEDICATIONS UPSET HIS STOMACH- GAVE BOTH- 1944 REPORT GIVEN TO ROSALBA CAMPO- PT TRANSFERRED ROOMS
--- NOTE | 2022-07-19 22:02 | NUR ---
SPOKE WITH [facility] ([facility]) REGARDING PATIENTS PAIN. ORDERS GIVEN TO CHANGE NORCO TO Q4 AND GIVE DOSE NOW
--- NOTE | 2022-07-20 04:50 | NUR ---
PATIENT ALERT AND ORIENTED, ROOM AIR, 20 LAC SL, INDEPENDENT, ON 1000 CC FLUID RESTRICTION Q24, PATIENT COMPLAINED OF PAIN NOT BEING CONTROLLED WITH MEDICATION, CALLED PHYSICIAN AND PAIN MED ORDERS FREQUENCY CHANGED, RASH HAS IMPROVED, MONITORING RENAL FUNCTIONS, NO EVENTS OVERNIGHT
[2022-07-20 05:14] LABS: Hematocrit 26.2 % (37.0-53.0); Hemoglobin 8.7 g/dL (13.5-17.5)
[2022-07-20 05:37] LABS: Albumin, Blood 1.3 g/dL (3.4-5.0); Anion Gap 7 mmol/L (6-16); Blood Urea Nitrogen 74 mg/dL (8-24); Bun/Creatinine Ratio 22.1 (12.0-20.0); CO2, Blood 22 mmol/L (21-32); Calcium, Blood 7.8 mg/dL (8.5-10.1); Chloride, Blood 108 mmol/L (98-108); Creatinine, Blood 3.35 mg/dL (0.60-1.20); Glomerular Filtration Rate 21 (60-); Glucose, Blood 240 mg/dL (70-99); Magnesium, Blood 2.7 mg/dL (1.6-2.4); Phosphorus, Blood 5.9 mg/dL (2.5-4.9); Potassium, Blood 3.5 mmol/L (3.5-5.5); Sodium, Blood 137 mmol/L (136-145)
[2022-07-20 11:54] LABS: Percent Saturation 56.9 % (20.0-50.0)
--- NOTE | 2022-07-20 16:45 | NUR ---
SHIFT SUMMARY PATIENT IS ALERT AND ORIENTED. PATIENT HAS HAD NO ACUTE EVENTS THIS SHIFT. PATIENT HAS BEEN GETTING ALBUMIN BID. PATIENT HAS COMPLAINED OF PAIN AND NAUSEA THIS SHIFT ONCE AND MEDICATED PER EMAR. PATIENT IS LOOKING TO DISCHARGE TOMORROW FOR A DERMATOLOGY APT TOMORROW AT 2:30. PATIENT HAS NOT COMPLAINED OF SOB OR VOMITTING THIS SHIFT. BED IN LOCKED AND LOWEST POSITION. CALL LIGHT IN PLACE. WILL MONITOR UNTIL SHIFT CHANGE.
--- NOTE | 2022-07-21 04:47 | NUR ---
SODA DIALYZER SUMMARY VSS. TALKATIVE, DISCUSSED DIFFICULTIES AT HOME. PLEASANT. REQUESTED PAIN MED A FEW TIMES THIS SHIFT FOR LEG DISCOMFORT - SEE MAR FOR DETAILS. HAS BEEN RESTING QUIETLY WITH FEW INTERUPTIONS SINCE OTHERWISE. FLUID RESTRICTION MAINTAINED. TOLERATED ABOUT 150 CC THIS SHIFT. CALL LIGHT IN REACH. WILL CONTIUE TO MONITOR
[2022-07-21 04:49] LABS: Hematocrit 26.3 % (37.0-53.0); Hemoglobin 8.9 g/dL (13.5-17.5)
[2022-07-21 05:11] LABS: Albumin, Blood 1.1 g/dL (3.4-5.0); Anion Gap 6 mmol/L (6-16); Blood Urea Nitrogen 72 mg/dL (8-24); Bun/Creatinine Ratio 25.5 (12.0-20.0); CO2, Blood 24 mmol/L (21-32); Calcium, Blood 7.7 mg/dL (8.5-10.1); Chloride, Blood 106 mmol/L (98-108); Creatinine, Blood 2.82 mg/dL (0.60-1.20); Glomerular Filtration Rate 25 (60-); Glucose, Blood 210 mg/dL (70-99); Magnesium, Blood 2.4 mg/dL (1.6-2.4); Phosphorus, Blood 5.3 mg/dL (2.5-4.9); Potassium, Blood 3.5 mmol/L (3.5-5.5); Sodium, Blood 136 mmol/L (136-145)
--- NOTE | 2022-07-21 06:45 | NUR ---
DR OJEDA IN TO SEE PT. POSSIBLE DISCHARGE TODAY. SEE MD DOCUMENTATION AND ORDERS.
[2022-07-21] MEDS ORDERED: ETHACRYNIC ACID PO (12:39)
[2022-07-21] MEDS ORDERED: Loratadine10 MG PO (12:41)
--- NOTE | 2022-07-21 13:34 | NUR ---
Discharge instructions give to patient. IV removed from pt arm. Pt ride will be here at 1400 to diamond picker pt and take him to his dermatology appt. Pt has all belongings in white pt bag along with discharge instructions.
== END 2022-07-21 14:36 | disposition home or self-care (01) | DRG 700 ==
LOC: ER 18:11 → MEDS 18:12
PROVIDERS: Internal Medicine Nephrology; Student in an Organized Health Care Education/Training Program; ADMIT Student in an Organized Health Care Education/Training Program
DX: N04.9 Nephrotic syndrome with unspecified morphologic changes (principal); D72.10 Eosinophilia, unspecified; N18.4 Chronic kidney disease, stage 4 (severe); N17.9 Acute kidney failure, unspecified; L27.0 Generalized skin eruption due to drugs and medicaments taken internally; L08.0 Pyoderma; D63.1 Anemia in chronic kidney disease; E11.22 Type 2 diabetes mellitus with diabetic chronic kidney disease; E78.5 Hyperlipidemia, unspecified; E88.09 Other disorders of plasma-protein metabolism, not elsewhere classified; E03.9 Hypothyroidism, unspecified; T50.995A Adverse effect of other drugs, medicaments and biological substances, initial encounter; E66.9 Obesity, unspecified; I10 Essential (primary) hypertension; L30.8 Other specified dermatitis; N25.81 Secondary hyperparathyroidism of renal origin; M54.9 Dorsalgia, unspecified; G89.29 Other chronic pain; K21.9 Gastro-esophageal reflux disease without esophagitis; E11.42 Type 2 diabetes mellitus with diabetic polyneuropathy; E87.70 Fluid overload, unspecified; Z79.891 Long term (current) use of opiate analgesic; Z88.8 Allergy status to other drugs, medicaments and biological substances; Z79.01 Long term (current) use of anticoagulants; Z90.49 Acquired absence of other specified parts of digestive tract; Z98.890 Other specified postprocedural states; Z87.891 Personal history of nicotine dependence; Z68.29 Body mass index [BMI] 29.0-29.9, adult; Z91.038 Other insect allergy status; Z79.899 Other long term (current) drug therapy; Z79.02 Long term (current) use of antithrombotics/antiplatelets; Z79.2 Long term (current) use of antibiotics
CPT/HCPCS: 36415; 71046; 76770; 80048; 80053; 80069; 80076; 81001; 82728; 82947; 83036; 83540; 83550; 83735; 83880; 85014; 85018; 85025; 87205; 93005; 93010; 96365; 96375; 96376; 99285-25; A9270; G0378; J0881; J1200; J1644; J1815; J1940; J2405; J2930; J7050; P9047

== ENCOUNTER 2022-08-01 17:36 | Emergency (ER) | payer OTHER ==
[~2022-08-01] VITALS: Ht 188 cm; Wt 104.3 kg
[~2022-08-01 17:36] MED LIST changes: +ETHACRYNIC ACID PO; +FURO80 PO; +LOSA50 PO; +Loratadine10 MG PO
[2022-08-01 18:36] LABS: BASOPHILS PERCENT AUTO 1 % (0-2); EOSINOPHILS ABSOLUTE AUTO 0.81 K/mm3 (0.00-0.68); EOSINOPHILS PERCENT AUTO 7 % (0-6); Hematocrit 38.6 % (37.0-53.0); Hemoglobin 13.3 g/dL (13.5-17.5); IMMATURE GRAN ABSOLUTE AUTO 0.22 K/mm3 (0.00-0.10); IMMATURE GRAN PERCENT AUTO 2 % (0-1); LYMPHOCYTES ABSOLUTE AUTO 2.12 K/mm3 (0.84-5.20); LYMPHOCYTES PERCENT AUTO 17 % (21-46); MONOCYTES ABSOLUTE AUTO 0.72 K/mm3 (0.16-1.47); MONOCYTES PERCENT AUTO 6 % (4-13); Mean Corpuscular HGB 30.8 pg (26.0-34.0); Mean Corpuscular HGB Conc 34.5 g/dL (31.5-36.5); Mean Corpuscular Volume 89 fL (80-100); Mean Platelet Volume 9.1 fL (9.1-12.4); NEUTROPHILS ABSOLUTE AUTO 8.54 K/mm3 (1.96-9.15); NEUTROPHILS PERCENT AUTO 68 % (41-73); Platelet Count 392 K/mm3 (150-400); RDW Coefficient Variation 14.9 % (11.7-14.2); RDW Standard Deviation 49.3 fL (35.1-46.3); Red Blood Cell Count 4.32 M/mm3 (4.30-5.90); White Blood Cell Count 12.51 K/mm3 (4.00-11.30)
[2022-08-01 19:29] LABS: Alanine Aminotransfer (ALT/SGP 22 U/L (12-78); Albumin, Blood 0.8 g/dL (3.4-5.0); Albumin/Globulin Ratio 0.2 (0.8-1.8); Alk Phos 134 U/L (50-136); Anion Gap 7 mmol/L (6-16); Aspartate Aminotrans (AST/SGOT 20 U/L (12-37); Bilirubin, Total <0.1 mg/dL (0.1-1.0); Blood Urea Nitrogen 47 mg/dL (8-24); Bun/Creatinine Ratio 23.4 (12.0-20.0); CO2, Blood 25 mmol/L (21-32); Calcium, Blood 7.4 mg/dL (8.5-10.1); Chloride, Blood 104 mmol/L (98-108); Creatinine, Blood 2.01 mg/dL (0.60-1.20); Globulin, Blood 4.4 g/dL (2.2-4.0); Glomerular Filtration Rate 38 (60-); Glucose, Blood 145 mg/dL (70-99); Potassium, Blood 3.2 mmol/L (3.5-5.5); Sodium, Blood 136 mmol/L (136-145); Total Protein, Blood 5.2 g/dL (6.4-8.2)
[2022-08-01] MEDS ORDERED: HYDHCL25 PO (21:27)
[2022-08-01] MEDS ORDERED: SPIR50 PO (21:27)
== END 2022-08-01 22:01 | disposition home or self-care (01) ==
LOC: ER 17:36
PROVIDERS: Emergency Medicine
DX: R60.0 Localized edema (principal); N28.9 Disorder of kidney and ureter, unspecified; R21 Rash and other nonspecific skin eruption; I12.9 Hypertensive chronic kidney disease with stage 1 through stage 4 chronic kidney disease, or unspecified chronic kidney disease; N18.4 Chronic kidney disease, stage 4 (severe); E11.22 Type 2 diabetes mellitus with diabetic chronic kidney disease; E78.5 Hyperlipidemia, unspecified; E03.9 Hypothyroidism, unspecified; Z87.891 Personal history of nicotine dependence; Z88.8 Allergy status to other drugs, medicaments and biological substances; Z91.030 Bee allergy status; Z79.899 Other long term (current) drug therapy; Z79.890 Hormone replacement therapy
CPT/HCPCS: 71045; 80053; 83880; 84484; 85025; 93005; 93010; 96374; 99285-25; A9270

== ENCOUNTER 2022-08-24 11:59 | Inpatient (IN) | payer OTHER ==
[~2022-08-24] VITALS: Ht 188 cm; Wt 101.7 kg
[~2022-08-24 11:59] MED LIST changes: +SPIR50 PO
[2022-08-24 12:35] LABS: BASOPHILS ABSOLUTE AUTO 0.05 K/mm3 (0.00-0.23); BASOPHILS PERCENT AUTO 0 % (0-2); EOSINOPHILS PERCENT AUTO 2 % (0-6); Hematocrit 26.7 % (37.0-53.0); IMMATURE GRAN ABSOLUTE AUTO 0.14 K/mm3 (0.00-0.10); IMMATURE GRAN PERCENT AUTO 1 % (0-1); LYMPHOCYTES ABSOLUTE AUTO 1.57 K/mm3 (0.84-5.20); LYMPHOCYTES PERCENT AUTO 6 % (21-46); MONOCYTES ABSOLUTE AUTO 0.75 K/mm3 (0.16-1.47); MONOCYTES PERCENT AUTO 3 % (4-13); Mean Corpuscular HGB 30.3 pg (26.0-34.0); Mean Corpuscular HGB Conc 33.7 g/dL (31.5-36.5); Mean Corpuscular Volume 90 fL (80-100); Mean Platelet Volume 8.8 fL (9.1-12.4); NEUTROPHILS ABSOLUTE AUTO 21.88 K/mm3 (1.96-9.15); NEUTROPHILS PERCENT AUTO 88 % (41-73); Platelet Count 417 K/mm3 (150-400); RDW Coefficient Variation 14.3 % (11.7-14.2); RDW Standard Deviation 47.1 fL (35.1-46.3); Red Blood Cell Count 2.97 M/mm3 (4.30-5.90); White Blood Cell Count 24.99 K/mm3 (4.00-11.30)
[2022-08-24 12:44] LABS: Albumin, Blood 0.5 g/dL (3.4-5.0); Albumin/Globulin Ratio 0.1 (0.8-1.8); Bilirubin, Total 0.1 mg/dL (0.1-1.0); Bun/Creatinine Ratio 17.9 (12.0-20.0); Calcium, Blood 7.4 mg/dL (8.5-10.1); Creatinine, Blood 2.68 mg/dL (0.60-1.20); Globulin, Blood 4.8 g/dL (2.2-4.0); Potassium, Blood 2.4 mmol/L (3.5-5.5); Total Protein, Blood 5.3 g/dL (6.4-8.2)
[2022-08-24 16:46] LABS: Source, Urine Clean Catch
[2022-08-24 16:51] LABS: Appearance, Urine Clear (Clear); Bilirubin, Urine Neg (Neg); Blood, Urine 3+ (Neg); Color, Urine Yellow (P-Yellow); Glucose Qualitative, Urine 4+ (Neg); Ketones, Urine Neg (Neg); Leukocyte Esterase, Urine Neg (Neg); Nitrite, Urine Neg (Neg); Protein, Urine 4+ (Neg); Specific Gravity, Urine 1.015 (1.003-1.022); Urobilinogen, Urine NORM (Normal); pH, Urine 6.5 (5.0-8.0)
[2022-08-24 16:57] LABS: Squamous Epithelial Cells Few /hpf (Few)
[2022-08-24 16:58] LABS: Bacteria Many /hpf; Yeast/Fungi Urine Rare /hpf
[2022-08-24] MEDS ORDERED: BUME2 PO (17:51)
[2022-08-25 04:57] LABS: Hematocrit 22.9 % (37.0-53.0); Hemoglobin 7.7 g/dL (13.5-17.5)
[2022-08-25 05:18] LABS: Albumin, Blood 0.7 g/dL (3.4-5.0); Anion Gap 7 mmol/L (6-16); Blood Urea Nitrogen 51 mg/dL (8-24); Bun/Creatinine Ratio 17.6 (12.0-20.0); CO2, Blood 23 mmol/L (21-32); Calcium, Blood 7.5 mg/dL (8.5-10.1); Chloride, Blood 106 mmol/L (98-108); Creatinine, Blood 2.89 mg/dL (0.60-1.20); Glomerular Filtration Rate 25 (60-); Glucose, Blood 131 mg/dL (70-99); Magnesium, Blood 2.1 mg/dL (1.6-2.4); Phosphorus, Blood 2.9 mg/dL (2.5-4.9); Potassium, Blood 2.6 mmol/L (3.5-5.5); Sodium, Blood 136 mmol/L (136-145)
--- NOTE | 2022-08-25 06:21 | NUR ---
SHIFT SUMMARY PT A&O X 4, PT C/O ITCHING AT BEGINNING OF THE SHIFT - CALL TO DR. DE LUNA - NEW ORDER FOR BENADRYL IV- GAVE PER ORDER, PT CONTINUED TO C/O ITCHING AND LEG CRAMPS- CALL TO DR. DE LUNA RE: ITCHING, LEG CRAMPS, POTASSIUM RESULTS, AND HYPERTENSION, NEW ORDER FOR BENADRYL CREAM, HYDRALAZINE, AND FLEXERIL- GAVE PER ORDER- 24 HOUR URINE COLLECTION STARTED 08/21 @2240- PT USES URINAL AND CALLS STAFF TO REPORT WHEN HE URINATES- NEW ORDER THIS AM FOR POTASSIUM- STARTED INFUSION- BED LOW POSITION, CALL LIGHT WITHIN REACH
[2022-08-25 09:34] LABS: Hematocrit 23.4 % (37.0-53.0); Hemoglobin 8.1 g/dL (13.5-17.5)
[2022-08-25 14:08] LABS: Free Thyroxine 0.7 ng/dL (0.70-1.60); Percent Saturation 39.6 % (20.0-50.0); Thyroid Stimulating Hormone 5.35 uIU/mL (0.360-4.800)
--- NOTE | 2022-08-25 16:13 | NUR ---
PATIENT IS ALERT AND ORIENTED AND COOPERATIVE WITH CARE. PAIN MEDICATED PER EMAR. C/O BLE PAIN. PATIENT HAS A GOOD APPETITE TODAY. FOLLOWING HIS FLUID RESTRICTION. USING THE URINAL INDEPENDENTLY. IV POTASSIUM WAS ADMINISTERED THIS SHIFT. PT ORDERED. WILL CONTINUE TO MONITOR
--- NOTE | 2022-08-26 05:47 | NUR ---
SHIFT SUMMARY PT A&O X 4, PT LAYING IN BED DURING BEDSIDE ROUNDS- PT MEDICATED X 1 IN NIGHT FOR LEG MUSCLE PAIN AND ITCHING- POTASSIUM INFUSED CONCURRENT WITH NS FOR 4 HOURS - PT TOLERATED WELL - PT ON 1L FLUID RESTRICTION- PT COMPLIENT WITH ORDER AND REQUESTED ICE CHIPS T/O NIGHT TO SLOW DOWN INPUT- PT ON TELE- BED LOW POSITION, CALL LIGHT WITHIN REACH
[2022-08-26 06:20] LABS: BASOPHILS ABSOLUTE AUTO 0.09 K/mm3 (0.00-0.23); BASOPHILS PERCENT AUTO 1 % (0-2); EOSINOPHILS PERCENT AUTO 22 % (0-6); Hematocrit 24.5 % (37.0-53.0); IMMATURE GRAN ABSOLUTE AUTO 0.59 K/mm3 (0.00-0.10); IMMATURE GRAN PERCENT AUTO 4 % (0-1); LYMPHOCYTES ABSOLUTE AUTO 2.61 K/mm3 (0.84-5.20); LYMPHOCYTES PERCENT AUTO 17 % (21-46); MONOCYTES ABSOLUTE AUTO 0.61 K/mm3 (0.16-1.47); MONOCYTES PERCENT AUTO 4 % (4-13); Mean Corpuscular HGB 30.2 pg (26.0-34.0); Mean Corpuscular HGB Conc 32.7 g/dL (31.5-36.5); Mean Corpuscular Volume 93 fL (80-100); NEUTROPHILS ABSOLUTE AUTO 8.08 K/mm3 (1.96-9.15); NEUTROPHILS PERCENT AUTO 53 % (41-73); Platelet Count 403 K/mm3 (150-400); RDW Coefficient Variation 14.8 % (11.7-14.2); RDW Standard Deviation 50.2 fL (35.1-46.3); Red Blood Cell Count 2.65 M/mm3 (4.30-5.90); White Blood Cell Count 15.38 K/mm3 (4.00-11.30)
[2022-08-26 06:31] LABS: Albumin, Blood 0.8 g/dL (3.4-5.0); Anion Gap 5 mmol/L (6-16); Blood Urea Nitrogen 52 mg/dL (8-24); Bun/Creatinine Ratio 19.2 (12.0-20.0); CO2, Blood 24 mmol/L (21-32); Calcium, Blood 7.8 mg/dL (8.5-10.1); Chloride, Blood 113 mmol/L (98-108); Creatinine, Blood 2.71 mg/dL (0.60-1.20); Glomerular Filtration Rate 27 (60-); Glucose, Blood 139 mg/dL (70-99); Magnesium, Blood 2.1 mg/dL (1.6-2.4); Phosphorus, Blood 2.7 mg/dL (2.5-4.9); Potassium, Blood 3.3 mmol/L (3.5-5.5); Sodium, Blood 142 mmol/L (136-145)
[2022-08-26 07:48] LABS: International Normalized Ratio 0.92; Prothrombin Time Results 9.7 Sec (9.7-11.5)
--- NOTE | 2022-08-26 18:23 | NUR ---
PT IS A/OX4, PLEASANT AND COOPERATIVE. PT IS A MODERATE ASSIST UP TO THE CHAIR DUE TO SWELLING AND PAIN IN HIS BLE'S. THE PT WAS MEDICATED FOR PAIN T/O THE DAY. PT WAS TO BE DC'D, HOWEVER NOW AWAITING APPROVEL TO BE DC'D TO SNF. CALL LIGHT IN REACH. WILL CONTINUE TO MONITOR AND ASSESS FOR CHANGES
[2022-08-27 05:46] LABS: Hematocrit 25.5 % (37.0-53.0); Hemoglobin 8.2 g/dL (13.5-17.5); Mean Corpuscular HGB 30.1 pg (26.0-34.0); Mean Corpuscular HGB Conc 32.2 g/dL (31.5-36.5); Mean Corpuscular Volume 94 fL (80-100); Mean Platelet Volume 8.8 fL (9.1-12.4); Platelet Count 435 K/mm3 (150-400); RDW Coefficient Variation 15.3 % (11.7-14.2); RDW Standard Deviation 53.2 fL (35.1-46.3); Red Blood Cell Count 2.72 M/mm3 (4.30-5.90); White Blood Cell Count 16.23 K/mm3 (4.00-11.30)
[2022-08-27 06:09] LABS: Albumin, Blood 1.5 g/dL (3.4-5.0); Anion Gap 4 mmol/L (6-16); Blood Urea Nitrogen 45 mg/dL (8-24); CO2, Blood 25 mmol/L (21-32); Calcium, Blood 7.7 mg/dL (8.5-10.1); Chloride, Blood 116 mmol/L (98-108); Creatinine, Blood 2.65 mg/dL (0.60-1.20); Glomerular Filtration Rate 27 (60-); Glucose, Blood 147 mg/dL (70-99); Phosphorus, Blood 2.3 mg/dL (2.5-4.9); Potassium, Blood 3.7 mmol/L (3.5-5.5); Sodium, Blood 145 mmol/L (136-145)
--- NOTE | 2022-08-27 06:11 | NUR ---
SHIFT SUMMARY PT LAYING IN BED DURING BEDSIDE ROUNDS- PT SWELLING IN FACE DECREASED FROM PERVIOUS SHIFT- PT REPORTS ITCHING DECREASED- PT ON FLUID RESTRICTION - PT COMPLIENT AND REQUEST ICE - PT ON TELE MONITOR- PT REQUESTED SNACK BEFORE FALLING ASLEEP- MEDICATED PT WITH NORCO ONCE IN THE SHIFT- BED LOW POSITION, CALL LIGHT WITHIN REACH
[2022-08-27 07:01] LABS: BAND PERCENT MAN 1 % (0-8); BASOPHILS ABSOLUTE MAN 0.16 K/mm3 (0.00-0.23); BASOPHILS PERCENT MAN 1 % (0-2); EOSINOPHILS ABSOLUTE MAN 5.68 K/mm3 (0.00-0.68); EOSINOPHILS PERCENT MAN 35 % (0-6); LYMPHOCYTES PERCENT MAN 13 % (21-46); METAMYELOCYTE ABSOLUTE MAN 0.16 K/mm3 (0.00-0.00); METAMYELOCYTE PERCENT MAN 1 % (0-0); MONOCYTES ABSOLUTE MAN 0.64 K/mm3 (0.16-1.47); MONOCYTES PERCENT MAN 4 % (4-13); MYELOCYTE ABSOLUTE MAN 1.13 K/mm3 (0.00-0.00); MYELOCYTE PERCENT MAN 7 % (0-0); NEUTROPHILS ABSOLUTE MAN 6.32 K/mm3 (1.96-9.15); SEG NEUTROPHILS PERCENT MAN 38 % (41-73); TOTAL CELLS COUNTED 100
--- NOTE | 2022-08-27 17:06 | NUR ---
PT IS A/OX4, PLEASANT AND COOPERATIVE. THE PT WAS UP WITH THE PHYSICAL THERAPIST AND AMBULATED INTO THE GOLDMAN TODAY. PT REPORTS PAIN WITH AMBULATION DUE TO THE SWELLING IN HIS BLE'S. THE PT WAS IN THE SHOWER TODAY WERE COPIOUS AMOUNTS OF SKIN FALKED OFF HIS BLE'S. XEROFORM WAS APPLIED TO THE PT'S BLE'S AND WRAPPED WITH KURLEX, THE PT REPORTED THAT IT SEEMED TO SOOTH HIS WOUNDS. THE PT WAS MEDICATED FOR PAIN T/O THE DAY. CALL LIGHT IN REACH. WILL CONTINUE TO MONITO AND ASSESS FOR CHANGES
[2022-08-28 05:41] LABS: Hematocrit 25.6 % (37.0-53.0); Hemoglobin 8.3 g/dL (13.5-17.5)
[2022-08-28 06:13] LABS: Albumin, Blood 1.3 g/dL (3.4-5.0); Anion Gap 5 mmol/L (6-16); Blood Urea Nitrogen 44 mg/dL (8-24); Bun/Creatinine Ratio 16.6 (12.0-20.0); CO2, Blood 23 mmol/L (21-32); Calcium, Blood 7.9 mg/dL (8.5-10.1); Chloride, Blood 114 mmol/L (98-108); Creatinine, Blood 2.65 mg/dL (0.60-1.20); Glomerular Filtration Rate 27 (60-); Glucose, Blood 107 mg/dL (70-99); Magnesium, Blood 1.9 mg/dL (1.6-2.4); Phosphorus, Blood 2.6 mg/dL (2.5-4.9); Potassium, Blood 4.4 mmol/L (3.5-5.5); Sodium, Blood 142 mmol/L (136-145)
--- NOTE | 2022-08-28 07:09 | NUR ---
patient had a great difficulty sleeping last night despite receiving intervaled Astor and Flexaril for his leg pain. He called very frequently for fluids and was pleasantly suprised at how he had only gone over his fluid limit by 80ml. patient is continent of clear moses urine per urinal. Nate is A&OX4 and cooperative with his care.
--- NOTE | 2022-08-28 12:31 | NUR ---
EMPLOYEE FROM [employer] CALLED [facility] STATING THEY WOULD NOT BE ABLE TO DO RENAL BIOPSY TODAY. STATED THEY WERE GOING TO CANCEL IT FOR NOW AND THE NEXT AVAILABLE DAY WOULD BE WEDNESDAY. DR. RUSTY GREEN.
[2022-08-28 14:23] LABS: SARS-Cov-2 (COVID-19) PCR, MMC NEGATIVE (NEGATIVE)
[2022-08-29 05:10] LABS: Hematocrit 25.3 % (37.0-53.0); Hemoglobin 8.1 g/dL (13.5-17.5)
[2022-08-29 05:33] LABS: Magnesium, Blood 1.8 mg/dL (1.6-2.4)
[2022-08-29 05:34] LABS: Albumin, Blood 0.9 g/dL (3.4-5.0); Anion Gap 4 mmol/L (6-16); Blood Urea Nitrogen 46 mg/dL (8-24); Bun/Creatinine Ratio 16.7 (12.0-20.0); CO2, Blood 23 mmol/L (21-32); Calcium, Blood 7.6 mg/dL (8.5-10.1); Chloride, Blood 111 mmol/L (98-108); Creatinine, Blood 2.75 mg/dL (0.60-1.20); Glomerular Filtration Rate 26 (60-); Glucose, Blood 122 mg/dL (70-99); Phosphorus, Blood 3.3 mg/dL (2.5-4.9); Potassium, Blood 4.4 mmol/L (3.5-5.5); Sodium, Blood 138 mmol/L (136-145)
--- NOTE | 2022-08-29 07:18 | NUR ---
PATIENT SLEPT WELL THROUGH THE NIGHT, ORIENTED AND COOPERATIVE WITH CARE. BLE PAINT TREATED PER MAR. DID NOT WANT ANLE DRESSINGS REMOVED. WENT 100ML OVER 1L FLUID RESTRICTION, IT WAS A MISUNDERSTANDING AND NOT PATIENTS FAULT. NO OTHER ISSUES TO REPORT.
[2022-08-29 10:58] LABS: Hematocrit 25.7 % (37.0-53.0); Mean Corpuscular HGB 30.1 pg (26.0-34.0); Mean Corpuscular HGB Conc 31.1 g/dL (31.5-36.5); Mean Corpuscular Volume 97 fL (80-100); Mean Platelet Volume 9.1 fL (9.1-12.4); Platelet Count 479 K/mm3 (150-400); RDW Coefficient Variation 15.6 % (11.7-14.2); RDW Standard Deviation 55.3 fL (35.1-46.3); Red Blood Cell Count 2.66 M/mm3 (4.30-5.90); White Blood Cell Count 16.13 K/mm3 (4.00-11.30)
[2022-08-29] MEDS ORDERED: SPIR25 PO (11:41)
[2022-08-29] MEDS ORDERED: K-TAB ER20 ME1 PO (11:46)
[2022-08-29] MEDS ORDERED: ONDA4 PO (11:52)
[2022-08-29 11:55] LABS: BAND PERCENT MAN 2 % (0-8); BASOPHILS ABSOLUTE MAN 0.16 K/mm3 (0.00-0.23); BASOPHILS PERCENT MAN 1 % (0-2); EOSINOPHILS ABSOLUTE MAN 4.67 K/mm3 (0.00-0.68); EOSINOPHILS PERCENT MAN 29 % (0-6); LYMPHOCYTES ABSOLUTE MAN 3.06 K/mm3 (0.84-5.20); LYMPHOCYTES PERCENT MAN 19 % (21-46); MONOCYTES ABSOLUTE MAN 0.96 K/mm3 (0.16-1.47); MONOCYTES PERCENT MAN 6 % (4-13); NEUTROPHILS ABSOLUTE MAN 7.25 K/mm3 (1.96-9.15); SEG NEUTROPHILS PERCENT MAN 43 % (41-73); TOTAL CELLS COUNTED 100
--- NOTE | 2022-08-29 14:16 | NUR ---
TRANSFER NOTE: PT TRANSFERRED BY [facility] TO [facility]. IV LEFT IN AT THE REQUEST OF THE NURSE AT [facility]. REPORT GIVEN TO NURSE WONG. PACKET WITH INFORMATION FOR FACILITY GIVEN TO THE [facility] PLEATING MACHINE OPERATOR.
== END 2022-08-29 14:15 | DRG 699 ==
LOC: ER 11:59 → MEDS 16:00 → ENPENDDIS 08-26 17:31 → MEDS 08-26 22:28
PROVIDERS: Emergency Medicine; Internal Medicine; Internal Medicine Nephrology; Nurse Practitioner Acute Care; ADMIT Family Medicine
PROC: 30233J1 Transfusion of Nonautologous Serum Albumin into Peripheral Vein, Percutaneous Approach (ICD-10-PCS; principal; 2022-08-25)
DX: E11.21 Type 2 diabetes mellitus with diabetic nephropathy (principal); E87.1 Hypo-osmolality and hyponatremia; E87.20 Acidosis, unspecified; N18.4 Chronic kidney disease, stage 4 (severe); E11.22 Type 2 diabetes mellitus with diabetic chronic kidney disease; N17.9 Acute kidney failure, unspecified; N25.81 Secondary hyperparathyroidism of renal origin; E88.09 Other disorders of plasma-protein metabolism, not elsewhere classified; E87.6 Hypokalemia; D63.1 Anemia in chronic kidney disease; E03.9 Hypothyroidism, unspecified; I12.9 Hypertensive chronic kidney disease with stage 1 through stage 4 chronic kidney disease, or unspecified chronic kidney disease; L23.9 Allergic contact dermatitis, unspecified cause; E11.42 Type 2 diabetes mellitus with diabetic polyneuropathy; M54.9 Dorsalgia, unspecified; G89.29 Other chronic pain; E78.5 Hyperlipidemia, unspecified; E87.70 Fluid overload, unspecified; K21.9 Gastro-esophageal reflux disease without esophagitis; D89.89 Other specified disorders involving the immune mechanism, not elsewhere classified; R21 Rash and other nonspecific skin eruption; L40.9 Psoriasis, unspecified; E87.5 Hyperkalemia; Z20.822 Contact with and (suspected) exposure to COVID-19; R63.5 Abnormal weight gain; Z68.30 Body mass index [BMI] 30.0-30.9, adult; B95.4 Other streptococcus as the cause of diseases classified elsewhere; Z91.148 Patient's other noncompliance with medication regimen for other reason; Z88.8 Allergy status to other drugs, medicaments and biological substances; Z91.038 Other insect allergy status; Z79.899 Other long term (current) drug therapy; Z79.02 Long term (current) use of antithrombotics/antiplatelets; Z90.49 Acquired absence of other specified parts of digestive tract; Z98.890 Other specified postprocedural states; Z87.891 Personal history of nicotine dependence
CPT/HCPCS: 36415; 71045; 76770; 80053; 80069; 81001; 81050; 82728; 83036; 83540; 83550; 83735; 83880; 84132; 84156; 84439; 84443; 85014; 85018; 85025; 85060; 85610; 85730; 87040; 87086; 87147; 96365; 96366; 96372; 96375; 97110; 97110-CQ; 97116; 97116-CQ; 97161; 97530; 99285-25; A9270; C1751; G0378; J0360; J0881; J1170; J1200; J1644; J2405; J3480; J7040; J7050; J7060; P9047; U0004

== ENCOUNTER 2022-10-16 13:49 | Inpatient (IN) | payer OTHER ==
[~2022-10-16] VITALS: Ht 177.8 cm; Wt 106.5 kg
[2022-10-16] VITALS (8 sets, daily range): BP systolic 80–108; BP diastolic 50–63
[~2022-10-16 13:49] MED LIST changes: +K-TAB ER20 ME1 PO; +ONDA4 PO
[2022-10-16] MEDS ORDERED: NEURONTIN300 MG PO (14:58)
[2022-10-16 15:24] LABS: Albumin, Blood 0.3 g/dL (3.4-5.0); Albumin/Globulin Ratio 0.1 (0.8-1.8); Bilirubin, Total 1.1 mg/dL (0.1-1.0); Bun/Creatinine Ratio 20.3 (12.0-20.0); Calcium, Blood 6.8 mg/dL (8.5-10.1); Creatinine, Blood 2.91 mg/dL (0.60-1.20); Globulin, Blood 4.1 g/dL (2.2-4.0); Potassium, Blood 2.6 mmol/L (3.5-5.5); Total Protein, Blood 4.4 g/dL (6.4-8.2)
[2022-10-16 15:30] LABS: Base Excess Venous -10.3 mmol/L; Bicarbonate Venous 17.2 mmol/L (24.0-30.0); PCO2 Venous 25.4 mmHg (38-42); pH Blood Venous 7.38 (7.34-7.37)
[2022-10-16 15:46] LABS: CPK Creatine Kinase 885 U/L (39-308); Ethanol (Alcohol), Blood, Med <3 mg/dL
[2022-10-16 16:08] LABS: Creatine Kinase MB 19.8 ng/mL (0.0-3.6); Creatine Kinase MB Index 2.2 (0.0-4.0)
[2022-10-16 16:37] LABS: Source, Urine Clean Catch
[2022-10-16 16:50] LABS: Appearance, Urine Clear (Clear); Bilirubin, Urine Neg (Neg); Blood, Urine 5+ (Neg); Color, Urine Yellow (P-Yellow); Protein, Urine 4+ (Neg); Urobilinogen, Urine 1+ (Normal)
[2022-10-16 17:02] LABS: U Cannabinoids Screen DETECTED
[2022-10-16 17:03] LABS: U Amphetamine Screen DETECTED; U Barbituate Screen Not Detected; U Benzodiazapine Screen Not Detected; U Buprenorphine Screen Not Detected; U Cocaine Screen Not Detected; U Methadone Screen Not Detected; U Methamphetamine Screen DETECTED; U Opiates Screen Not Detected; U Oxycodone Screen Not Detected; U Phencyclidine Screen Not Detected; U Propoxyphene Screen Not Detected
[2022-10-16 17:05] LABS: Glucose Qualitative, Urine 3+ (Neg); Ketones, Urine Neg (Neg); Leukocyte Esterase, Urine 1+ (Neg); Nitrite, Urine Pos (Neg)
[2022-10-16 17:06] LABS: Bacteria Many /hpf; Squamous Epithelial Cells Rare /hpf (Few); Transitional Epithelial Cells Few /hpf (0-Rare)
[2022-10-16 17:54] LABS: Hematocrit 25.1 % (37.0-53.0); Hemoglobin 8.8 g/dL (13.5-17.5); Mean Corpuscular HGB 29.1 pg (26.0-34.0); Mean Corpuscular HGB Conc 35.1 g/dL (31.5-36.5); Mean Corpuscular Volume 83 fL (80-100); RDW Coefficient Variation 15.1 % (11.7-14.2); RDW Standard Deviation 45.5 fL (35.1-46.3); Red Blood Cell Count 3.02 M/mm3 (4.30-5.90)
[2022-10-16 18:18] LABS: Platelet Count 27 K/mm3 (150-400)
[2022-10-16 18:23] LABS: BAND PERCENT MAN 4 % (0-8); BASOPHILS PERCENT MAN 0 % (0-2); EOSINOPHILS PERCENT MAN 0 % (0-6); LYMPHOCYTES ABSOLUTE MAN 1.09 K/mm3 (0.84-5.20); LYMPHOCYTES PERCENT MAN 6 % (21-46); MONOCYTES ABSOLUTE MAN 0.36 K/mm3 (0.16-1.47); MONOCYTES PERCENT MAN 2 % (4-13); NEUTROPHILS ABSOLUTE MAN 16.74 K/mm3 (1.96-9.15); SEG NEUTROPHILS PERCENT MAN 88 % (41-73); TOTAL CELLS COUNTED 100
[2022-10-16 19:07] LABS: Hematocrit 23.9 % (37.0-53.0); Hemoglobin 8.2 g/dL (13.5-17.5); Mean Corpuscular HGB Conc 34.3 g/dL (31.5-36.5); Mean Corpuscular Volume 85 fL (80-100); RDW Coefficient Variation 15.1 % (11.7-14.2); RDW Standard Deviation 46.6 fL (35.1-46.3); Red Blood Cell Count 2.83 M/mm3 (4.30-5.90); White Blood Cell Count 22.77 K/mm3 (4.00-11.30)
[2022-10-16 19:18] LABS: Platelet Count 25 K/mm3 (150-400)
[2022-10-16 19:28] LABS: Lactate Dehydrogenase (Ld),Bld 481 U/L (100-240)
[2022-10-16 19:44] LABS: BAND PERCENT MAN 6 % (0-8); BASOPHILS PERCENT MAN 0 % (0-2); EOSINOPHILS PERCENT MAN 0 % (0-6); LYMPHOCYTES ABSOLUTE MAN 0.91 K/mm3 (0.84-5.20); LYMPHOCYTES PERCENT MAN 4 % (21-46); MONOCYTES PERCENT MAN 0 % (4-13); NEUTROPHILS ABSOLUTE MAN 21.85 K/mm3 (1.96-9.15); SEG NEUTROPHILS PERCENT MAN 90 % (41-73); TOTAL CELLS COUNTED 100
[2022-10-16 21:26] LABS: Albumin, Blood 0.5 g/dL (3.4-5.0); Anion Gap 16 mmol/L (6-16); Blood Urea Nitrogen 62 mg/dL (8-24); Bun/Creatinine Ratio 20.9 (12.0-20.0); CO2, Blood 15 mmol/L (21-32); CPK Creatine Kinase 793 U/L (39-308); Calcium, Blood 6.6 mg/dL (8.5-10.1); Chloride, Blood 104 mmol/L (98-108); Creatinine, Blood 2.96 mg/dL (0.60-1.20); Glomerular Filtration Rate 24 (60-); Glucose, Blood 137 mg/dL (70-99); Magnesium, Blood 2.3 mg/dL (1.6-2.4); Phosphorus, Blood 4.3 mg/dL (2.5-4.9); Potassium, Blood 2.6 mmol/L (3.5-5.5); Sodium, Blood 135 mmol/L (136-145)
--- NOTE | 2022-10-16 22:08 | NUR ---
TRANSFER NOTE/ASSUMPTION OF CARE PATIENT TRANSFERRED TO UNIT AT 2114. PATIENT LETHARGIC, ABLE TO AROUSED BY VERBAL STIMULI BUT QUICKLY FALLS BACK TO SLEEP. MUMBLED SPEECH. ORIENTED TO SELF/PLACE. TEMP SAUL SHOWING TEMP OF 99.2. PLACED ON TELE, SR WITH HR 80-90'S. SBP 80-90'S. CALL PLACED TO PROVIDER BY PURCHASING ADMINISTRATIVE ASSISTANT MIKE REGARDING HYPOTENSION AND MAP <65. ORDER PLACED FOR 500ML BOLUS CURRENTLY INFUSING. 2/2 ALBUMIN INFUSED PER EMAR. D10 GTT INFUSING, CBG 93 UPON ARRIVAL. ON RA WITH SPO2 >92%. PATIENT COLD TO TOUCH. PPP. PATIENT MOANING BUT ANSWERING QUESTIONS. DENIES DRUG USE TO THIS RN. ANASARCA NOTED. SHAKIR CALL. CXR AND ABDOMINAL/RENAL US COMPLETED. BP CYCLING Q15 MINUTES. BED IN LOWEST POSITION AND CALL LIGHT WITHIN REACH.
--- NOTE | 2022-10-16 23:24 | NUR ---
PATIENT UPDATE CALL PLACED TO PROVIDER SELWYN REGARDING LACTIC RESULTS. PATIENT FINISHED BOLUS WITH BRIEF RESULTS. BP 99/54 WITH MAP OF 68 AT TIME OF CALL TO PROVIDER. ORDER FOR 10MG MIDODRINE RECEIVED. PATIENT WAS AROUSED ENOUGH TO TAKE MEDICATION CRUSHED IN APPLESAUCE. HOB LEFT AT 90 DEGREES D/T PATIENT QUICKLY FALLING BACK TO SLEEP. IO REMOVED FROM LEFT TIBIA. PRESSURE APPLIED AND GAUZE/TAPE PLACED. PATIENT TOLERATED WELL. D10 GTT INFUSING. POTASSIUM CHLORIDE INFUSING PER EMAR. VERBAL ORDER FROM MD OJEDA TO LEAVE SAUL CATHETER IN FOR CRITICAL I/O'S NO FURHTER CHANGES WITH PATIENT CONDITION SINCE PREVIOUS NOTE. BED IN LOWEST POSITION AND CALL LIGHT WITHIN REACH.
[2022-10-17] VITALS (17 sets, daily range): BP systolic 91–107; BP diastolic 52–66
[2022-10-17 04:24] LABS: Hematocrit 21.9 % (37.0-53.0); Hemoglobin 7.6 g/dL (13.5-17.5); Mean Corpuscular HGB 28.9 pg (26.0-34.0); Mean Corpuscular HGB Conc 34.7 g/dL (31.5-36.5); Mean Corpuscular Volume 83 fL (80-100); Mean Platelet Volume 11.8 fL (9.1-12.4); RDW Coefficient Variation 15.2 % (11.7-14.2); RDW Standard Deviation 46.1 fL (35.1-46.3); Red Blood Cell Count 2.63 M/mm3 (4.30-5.90); White Blood Cell Count 27.78 K/mm3 (4.00-11.30)
[2022-10-17 04:32] LABS: Platelet Count 25 K/mm3 (150-400)
[2022-10-17 04:49] LABS: Albumin, Blood 0.3 g/dL (3.4-5.0); Albumin/Globulin Ratio 0.1 (0.8-1.8); Bilirubin, Total 0.7 mg/dL (0.1-1.0); Bun/Creatinine Ratio 20.7 (12.0-20.0); Calcium, Blood 6.4 mg/dL (8.5-10.1); Creatinine, Blood 3.14 mg/dL (0.60-1.20); Globulin, Blood 3.6 g/dL (2.2-4.0); Magnesium, Blood 2.4 mg/dL (1.6-2.4); Phosphorus, Blood 4.6 mg/dL (2.5-4.9); Total Protein, Blood 3.9 g/dL (6.4-8.2)
--- NOTE | 2022-10-17 05:02 | NUR ---
PATIENT UPDATE CALL PLACED TO MD DE LUNA REGARDING POSITIVE BLOOD CULTURES. MD DE LUNA WITH ORDERS TO INCREASE ANTIBIOTIC DOSE. NO FURTHER ORDERS OR CHANGES IN PATIENT CONDITION AT THIS TIME
[2022-10-17 05:06] LABS: BAND PERCENT MAN 7 % (0-8); BASOPHILS PERCENT MAN 0 % (0-2); EOSINOPHILS PERCENT MAN 0 % (0-6); LYMPHOCYTES ABSOLUTE MAN 1.94 K/mm3 (0.84-5.20); LYMPHOCYTES PERCENT MAN 7 % (21-46); MONOCYTES ABSOLUTE MAN 1.11 K/mm3 (0.16-1.47); MONOCYTES PERCENT MAN 4 % (4-13); NEUTROPHILS ABSOLUTE MAN 24.72 K/mm3 (1.96-9.15); SEG NEUTROPHILS PERCENT MAN 82 % (41-73); TOTAL CELLS COUNTED 100
--- NOTE | 2022-10-17 05:18 | NUR ---
SHIFT SUMMARY SEE PREVIOUS NOTES REGARDING PATIENT UPDATES DURING THIS SHIFT. NO ACUTE CHANGES SINCE PREVIOUS NOTE. PATIENT'S MAP REMAINS >65, WITH SBP 100'S A THIS TIME. AFEBRILE. SPO2 >92% ON RA. SR ON MONITOR WITH HR 80'S. TEMP PROBE SAUL PATENT AND DRAINING TO GRAVITY. D10 GTT INFUSING PER EMAR. CBG Q4 PER ORDER. PATIENT CONTINUES TO BE LETHARGIC AND IS ONLY ABLE TO ANSWER SHORT/SIMPLE QUESTIONS BEFORE FALLING BACK ASLEEP. MUMBLED SPEECH. MOANING WHILE SLEEPING. PAINFUL WITH ROLLING, DENIES PAIN AT REST. SEE ASSESSMENT. REPOSITIONING Q2HRS D/T PATIENT WEAKNESS AND INABILITY TO MOVE SELF. EDEMA NOTED THROUGHOUT. PPP. BED IN LOWEST POSITION AND CALL LIGHT WITHIN REACH. THIS RN WILL CONTINUE TO MONITOR UNTIL SHIFT CHANGE AT 0700.
--- NOTE | 2022-10-17 12:16 | NUR ---
AM NOTE: PT RESPONSIVE TO VERBAL STIMULI HAS GARBLED SPEECH ALERT AND ORIENTED X3, CAN HOLD A CONVERSATION BUT IS FORGETFUL. PT IS VERY LETHARGIC AND VERY WEAK CAN GRASP ON BOTH HANDS BUT UNABLE TO RAISE AND LIFT, BLE HAS MINIMAL MOVEMENT. PT ALSO HAS PAIN ON BOTH ARMS WITH MOVEMENT, HAS 4+ BILATERAL PITTING EDEMA ON BOTH ARMS. ATE BREAKFAST THIS MORNING HAD COUGHING EPISODE WITH SCRAMBLED EGGS BUT OTHERWISE ATE OATMEAL AND DRANK MILK WITH NO PROBLEM. D10 GTT WAS PLACED ON STANDBY CBG NOW STABLE AT 150-180'S, D5 SODIUM BICARB STARTED AT 75MLS/HR, POTASSIUM IS BEING REPLACED ALBUMIN AND BUMEX GIVEN PER DR OJEDA. PT IN BED NOW SLEEPING REPOSITIONED Q2 HRS. SHILA CALLED MULTIPLE TIMES THIS MORNING TO GET AN UPDATE SEEMS LIKE HAS SOME PERSONAL/ATTITUDE PROBLEM. ON THE SECOND PHONE CALL WITH THIS RN, TO GET AN UPDATE IS CONSISTENTLY UPSET AND IS YELLING AT THE PHONE AND MENTIONED PHYSICAL THERAPIST WHO CALLED HER TO GET INFORMATION ABOUT PT'S ACTIVITY AT [place] THEN STARTED CUSSING, THIS RN TOLD THE THAT WE DO NOT TOLERATE THAT KIND OF BEHAVIOR THEN PT HANGED UP THEN CALLED AGAIN AND SPOKE WITH IDA MONDRAGON RN, TELECOM NETWORK MANAGER MADE AWARE.
--- NOTE | 2022-10-17 18:10 | NUR ---
SHIFT SUMMARY: NO ACUTE CHANGE FOR THE SHIFT, VITALS HRR SR 80'S, SBP 90-110'S, SATS ABOVE 95% ON RA, AFEBRILE. PT TOLERATING PO INTAKE LUNCH AND DINNER. SODIUM BICARB GTT INFUSING AT 75MLS/HR, ALBUMIN AND BUMEX AFTERNOON DOSE GIVEN PER DR MACIEL ORDER, TO RECHECK LABS IN AM. PT HAS BEEN REPOSITIONED Q2HRS. SAUL DRAINING VIA GRAVITY HAD DARK YELLOW URINE OUTPUT 300MLS FOR THE SHIFT. NO OTHER ISSUES ENCOUNTERED, WILL REPORT TO ONCOMING SHIFT
[2022-10-18] VITALS (10 sets, daily range): BP systolic 107–153; BP diastolic 59–89
[2022-10-18 04:30] LABS: Hematocrit 19.9 % (37.0-53.0); Hemoglobin 6.9 g/dL (13.5-17.5)
[2022-10-18 04:55] LABS: Albumin, Blood 0.5 g/dL (3.4-5.0); Anion Gap 10 mmol/L (6-16); Blood Urea Nitrogen 76 mg/dL (8-24); Bun/Creatinine Ratio 23.5 (12.0-20.0); CO2, Blood 19 mmol/L (21-32); Calcium, Blood 6.5 mg/dL (8.5-10.1); Chloride, Blood 106 mmol/L (98-108); Creatinine, Blood 3.24 mg/dL (0.60-1.20); Glomerular Filtration Rate 21 (60-); Glucose, Blood 173 mg/dL (70-99); Magnesium, Blood 2.4 mg/dL (1.6-2.4); Potassium, Blood 3.3 mmol/L (3.5-5.5); Sodium, Blood 135 mmol/L (136-145)
--- NOTE | 2022-10-18 05:47 | NUR ---
SHIFT SUMMARY THIS RN ASSUMED CARE OF PATIENT AT 1900. PATIENT IS ALERT AND CONVERSING THROUGHOUT THE SHIFT. ORIENTED FULLY. VERBALIZES NEEDS BUT STILL TOO WEAK TO MOVE EXTREMETIES AND USE CALL LIGHT. REPOSITIONING Q2HRS. VITALS STABLE. TEMP SAUL PATENT AND DRAINING TO GRAVITY. PATIENT NOTED TO HAVE INCREASED SCROTAL EDEMA ON THIS SHIFT COMPARED TO PREVIOUS NIGHT WITH THIS RN. CALL PLACED TO MD DE LUNA REGARDING HGB OF 6.9; ORDER FOR 1 UNIT OF PRBC'S. PITTING EDEMA T/O. ELEVATING EXTREMETIES ON PILLOWS. NaHCO3 GTT INFUSING PER EMAR. BED IN LOWEST POSITION AND CALL LIGHT WITHIN REACH. THIS RN WILL CONTINUE TO MONITOR PATIENT UNTIL SHIFT CHANGE AT 0700.
--- NOTE | 2022-10-18 09:11 | NUR ---
AM NOTE: PT ALERT AND ORIENTED X 3-4, ABLE TO STATE NEEDS AND ANSWER QUESTIONS WITH SOME MILD FORGETFULNESS. PT HAS DEEP EDEMA T/O HIS BODY, MOSTLY IN HIS LOWER EXTREMETIES, UPPER EXTREMETIES AND SCROTUM. PT C/O PAIN T/O HIS BODY, PT MOANING CONTINUOSLY, PT REPOSITIONED WITH MILD RELIEF. PT PLACED ON A FLUID RESTRICTION OF 1000 ML PER DAY, PT CONSTANTLY ASKING FOR WATER. PT HAS NO C/O SOB, CHEST PAIN OR PRESSURE. NO C/O N/V OR ABDOMINAL PAIN. PT ABLE TO TOLERATE MEDS BY MOUTH IN APPLESAUCE. PT SBP 110'S-120'S WITH HR IN THE 70'S. PT HAS A SAUL IN PLACE WHICH IS PATENT AND DRAINING TO GRAVITY. PT HAS A POWERGLIDE IN THE LEFT UPPER ARM WHICH IS CURRENTLY INFUSING BLOOD AT 125 ML/HR. VS REMAIN STABLE AFTER STARTING BLOOD TX. WILL CONTINUE TO MONITOR T/O THE SHIFT.
[2022-10-18 15:12] LABS: Hematocrit 24.4 % (37.0-53.0); Hemoglobin 8.4 g/dL (13.5-17.5); Mean Corpuscular HGB 28.9 pg (26.0-34.0); Mean Corpuscular HGB Conc 34.4 g/dL (31.5-36.5); Mean Corpuscular Volume 84 fL (80-100); Mean Platelet Volume 11.4 fL (9.1-12.4); RDW Coefficient Variation 15.3 % (11.7-14.2); RDW Standard Deviation 47.1 fL (35.1-46.3); Red Blood Cell Count 2.91 M/mm3 (4.30-5.90); White Blood Cell Count 19.06 K/mm3 (4.00-11.30)
[2022-10-18 15:26] LABS: Platelet Count 32 K/mm3 (150-400)
[2022-10-18 16:04] LABS: BAND PERCENT MAN 3 % (0-8); BASOPHILS PERCENT MAN 0 % (0-2); EOSINOPHILS ABSOLUTE MAN 0.38 K/mm3 (0.00-0.68); EOSINOPHILS PERCENT MAN 2 % (0-6); LYMPHOCYTES ABSOLUTE MAN 2.09 K/mm3 (0.84-5.20); LYMPHOCYTES PERCENT MAN 11 % (21-46); METAMYELOCYTE ABSOLUTE MAN 0.19 K/mm3 (0.00-0.00); METAMYELOCYTE PERCENT MAN 1 % (0-0); MONOCYTES ABSOLUTE MAN 0.38 K/mm3 (0.16-1.47); MONOCYTES PERCENT MAN 2 % (4-13); NEUTROPHILS ABSOLUTE MAN 16.01 K/mm3 (1.96-9.15); SEG NEUTROPHILS PERCENT MAN 81 % (41-73); TOTAL CELLS COUNTED 100
--- NOTE | 2022-10-18 17:39 | NUR ---
SHIFT SUMMARY: NO ACUTE EVENTS T/O THE SHIFT. PT CONTINUES TO REMAIN ON BEDREST WITH Q2 TURNS. PT TOLERATES FAIR WITH C/O PAIN T/O HIS BODY. PT HAS BEEN MEDICATED PER MAR T/O THE SHIFT WITH MINIMAL RELIEF. PT COMPLAINING OF SOB AT TIMES, SPO2 REMAINING ABOVE 95% ON RA WITH CLEAR LUNG SOUNDS T/O UPPER AND LOWER LOBES. SBP IN THE 130'S WITH NO C/O CHEST PAIN OR PRESSURE AND HR IN THE 70'S. PT CONTINUES TO HAVE DEEP, PITTING EDEMA IN UPPER AND LOWER EXTREMITIES WELL IN THE SCROTAL AREA. PT BUMEX INCREASED FROM ONCE A DAY TO TWICE PER DAY PER MD. PT HAS INDWELLING SAUL IN PLACE WHICH IS PATENT AND DRAINING TO GRAVITY WITH A URINE OUTPUT OF 1000 ML'S T/O THE SHIFT. PT CONTINUES TO REMAIN ALERT AND ORIENTED X3-4 AND IS PLEASANT AND COOPERATIVE WITH CARE. PT CALLED AND WAS UPDATED TO PT'S STATUS. PT RECEIVED 1 UNIT OF PRBC'S, WITH NO COMPLICATIONS. HGB RECHECKED AFTER BLOOD AND RESULTED AT 8.4. PT CURRENTLY HAS SODIUM BICARB INFUSING THROUGH POWERGLIDE IN LEFT UPPER ARM AT 50 ML/HR. WILL CONTINUE TO MONITOR AND GIVE REPORT TO ONCOMING KRISTEN ALTMAN RN.
[2022-10-19] VITALS (7 sets, daily range): BP systolic 124–148; BP diastolic 65–83
[2022-10-19 04:44] LABS: Hematocrit 24.1 % (37.0-53.0); Hemoglobin 8.3 g/dL (13.5-17.5)
[2022-10-19 05:02] LABS: Albumin, Blood 0.6 g/dL (3.4-5.0); Anion Gap 11 mmol/L (6-16); Blood Urea Nitrogen 76 mg/dL (8-24); Bun/Creatinine Ratio 27.6 (12.0-20.0); CO2, Blood 21 mmol/L (21-32); Calcium, Blood 6.8 mg/dL (8.5-10.1); Chloride, Blood 106 mmol/L (98-108); Creatinine, Blood 2.75 mg/dL (0.60-1.20); Glomerular Filtration Rate 26 (60-); Glucose, Blood 172 mg/dL (70-99); Magnesium, Blood 2.2 mg/dL (1.6-2.4); Phosphorus, Blood 3.9 mg/dL (2.5-4.9); Potassium, Blood 3.1 mmol/L (3.5-5.5); Sodium, Blood 138 mmol/L (136-145)
--- NOTE | 2022-10-19 05:39 | NUR ---
SHIFT SUMMARY A/OX3, FORGETFUL. SPO2 >92% ON RA. TELE SR 70S-80S, DENIES CHEST PAIN/PRESSURE. WEEPING EDEMA T/O. SCROTAL SWELLING/WEEPING WITH SCANT AMOUNT OF BLOOD NOTED. SAUL PATENT AND DRAINING. VSS, NO ACUTE CHANGES AT THIS TIME. BED IN LOWEST POSITION WITH CALL LIGHT IN REACH. WILL CONTINUE TO MONITOR AND REPORT TO ONCOMING RN.
--- NOTE | 2022-10-19 09:23 | NUR ---
AM NOTE: PT ALERT AND ORIENTED X4 THIS MORNING, ABLE TO ANSWER QUESTIONS AND STATE NEEDS APPROPRIATELY. PT BUMEX INCREASED THIS MORNING PER . PT CONTINUES TO HAVE DEEP, PITTING EDEMA T/O UPPER AND LOWER EXTREMETIES AND IN THE SCROTAL AREA. PT HAS A SAUL IN PLACE WHICH IS PATENT AND DRAINING YELLOW URINE TO GRAVITY. PT HAS A POWERGLIDE IN THE LEFT UPPER ARM WHICH IS INFUSING POTASSIUM AND SODIUM BICARB CURRENTLY. PT C/O PAIN T/O BODY AND HAS BEEN MEDICATED PER MAR WITH MINIMAL RELIEF. PT REPOSITIONING WITH ASSISTANCE Q2 HOURS. PT CONTINUES TO CALL OUT FOR WATER AND MUMBLES FREQUENTLY. PT ON A 1000 ML FLUID RESTRICTION AT THIS TIME. PT HAS CLEAR LUNG SOUNDS IN THE UPPER LOBES WITH SLIGHTLY DIMINSHED LUNG SOUNDS IN THE BASES. VITAL SIGNS STABLE, SBP IN THE 130'S, HR 80'S IN SINUS RYTHM, WITH SPO2 >95 ON RA. WILL CONTINUE TO MONITOR T/O THE SHIFT.
[2022-10-19 17:21] LABS: BASOPHILS ABSOLUTE AUTO 0.02 K/mm3 (0.00-0.23); BASOPHILS PERCENT AUTO 0 % (0-2); EOSINOPHILS PERCENT AUTO 1 % (0-6); Hematocrit 25.1 % (37.0-53.0); Hemoglobin 8.5 g/dL (13.5-17.5); IMMATURE GRAN ABSOLUTE AUTO 0.42 K/mm3 (0.00-0.10); IMMATURE GRAN PERCENT AUTO 3 % (0-1); LYMPHOCYTES ABSOLUTE AUTO 2.02 K/mm3 (0.84-5.20); LYMPHOCYTES PERCENT AUTO 14 % (21-46); MONOCYTES ABSOLUTE AUTO 0.55 K/mm3 (0.16-1.47); MONOCYTES PERCENT AUTO 4 % (4-13); Mean Corpuscular HGB 28.7 pg (26.0-34.0); Mean Corpuscular HGB Conc 33.9 g/dL (31.5-36.5); Mean Corpuscular Volume 85 fL (80-100); Mean Platelet Volume 11.3 fL (9.1-12.4); NEUTROPHILS ABSOLUTE AUTO 11.88 K/mm3 (1.96-9.15); NEUTROPHILS PERCENT AUTO 79 % (41-73); RDW Coefficient Variation 15.8 % (11.7-14.2); RDW Standard Deviation 48.7 fL (35.1-46.3); Red Blood Cell Count 2.96 M/mm3 (4.30-5.90); White Blood Cell Count 14.99 K/mm3 (4.00-11.30)
[2022-10-19 17:26] LABS: Platelet Count 50 K/mm3 (150-400)
--- NOTE | 2022-10-19 17:46 | NUR ---
SHIFT SUMMARY: NO ACUTE EVENTS T/O THE SHIFT. PT REMAINS ALERT AND ORIENTED X4. PT CONTINUES TO HAVE EDEMA T/O UPPER AND LOWER EXTREMITIES WELL IN THE SCROTAL AREA. PT GIVEN HIS INCREASED DOSE OF BUMEX THIS MORNING PER DR. OJEDA AND HAS HAD 4500 ML OF CLEAR YELLOW URINE VIA HIS SAUL WHICH IS PATENT AND DRAINING TO GRAVITY. PT RECEIVED A BED BATH TODAY AND HAS BEEN RESPOSITIONG Q2 WITH MAX ASSIST. PT HAD PHYSICAL THERAPY COME EVALUATE HIM TODAY. HE WAS ABLE TO SIT AT THE BEDSIDE WITH ASSISTANCE, WITH A RECOMMENDATION FOR SNF. PT CONTINUES TO CALL OUT FOR WATER AND MOAN FREQUENTLY T/O THE SHIFT. HE IS REMINDED THAT HE IS ON A 1000ML/DAY FLUID RESTRICTION. PT HAS A POWERGLIDE IN THE LEFT UPPER ARM WHICH IS INFUSING SODIUM BICARB AT 50 ML/HR. PT SBP 130'S WITH HR IN THE 70'S. NO C/O CHEST PAIN, PRESSURE OR SHORTNESS OF BREATH. WILL CONTINUE TO MONITOR AND GIVE REPORT TO ONCOMING KRISTEN RN.
[2022-10-19 17:49] LABS: Albumin, Blood 0.8 g/dL (3.4-5.0); Anion Gap 8 mmol/L (6-16); Blood Urea Nitrogen 74 mg/dL (8-24); Bun/Creatinine Ratio 29.4 (12.0-20.0); CO2, Blood 23 mmol/L (21-32); Calcium, Blood 7.2 mg/dL (8.5-10.1); Chloride, Blood 107 mmol/L (98-108); Creatinine, Blood 2.52 mg/dL (0.60-1.20); Glomerular Filtration Rate 29 (60-); Glucose, Blood 206 mg/dL (70-99); Magnesium, Blood 2.2 mg/dL (1.6-2.4); Phosphorus, Blood 3.2 mg/dL (2.5-4.9); Potassium, Blood 3.4 mmol/L (3.5-5.5); Sodium, Blood 138 mmol/L (136-145)
[2022-10-20 04:53] VITALS: BP 126/73
[2022-10-20 04:59] LABS: BASOPHILS ABSOLUTE AUTO 0.01 K/mm3 (0.00-0.23); BASOPHILS PERCENT AUTO 0 % (0-2); EOSINOPHILS ABSOLUTE AUTO 0.19 K/mm3 (0.00-0.68); EOSINOPHILS PERCENT AUTO 2 % (0-6); Hematocrit 21.7 % (37.0-53.0); Hemoglobin 7.4 g/dL (13.5-17.5); IMMATURE GRAN ABSOLUTE AUTO 0.33 K/mm3 (0.00-0.10); IMMATURE GRAN PERCENT AUTO 3 % (0-1); LYMPHOCYTES ABSOLUTE AUTO 2.09 K/mm3 (0.84-5.20); LYMPHOCYTES PERCENT AUTO 16 % (21-46); MONOCYTES ABSOLUTE AUTO 0.58 K/mm3 (0.16-1.47); MONOCYTES PERCENT AUTO 5 % (4-13); Mean Corpuscular HGB 29.1 pg (26.0-34.0); Mean Corpuscular HGB Conc 34.1 g/dL (31.5-36.5); Mean Corpuscular Volume 85 fL (80-100); NEUTROPHILS ABSOLUTE AUTO 9.69 K/mm3 (1.96-9.15); NEUTROPHILS PERCENT AUTO 75 % (41-73); Platelet Count 56 K/mm3 (150-400); RDW Coefficient Variation 15.6 % (11.7-14.2); RDW Standard Deviation 48.3 fL (35.1-46.3); Red Blood Cell Count 2.54 M/mm3 (4.30-5.90); White Blood Cell Count 12.89 K/mm3 (4.00-11.30)
[2022-10-20 05:00] LABS: Albumin, Blood 0.7 g/dL (3.4-5.0); Anion Gap 8 mmol/L (6-16); Blood Urea Nitrogen 70 mg/dL (8-24); CO2, Blood 26 mmol/L (21-32); Calcium, Blood 7.1 mg/dL (8.5-10.1); Chloride, Blood 108 mmol/L (98-108); Creatinine, Blood 2.19 mg/dL (0.60-1.20); Glomerular Filtration Rate 34 (60-); Glucose, Blood 194 mg/dL (70-99); Phosphorus, Blood 3.5 mg/dL (2.5-4.9); Potassium, Blood 3.1 mmol/L (3.5-5.5); Sodium, Blood 142 mmol/L (136-145)
--- NOTE | 2022-10-20 06:13 | NUR ---
SHIFT SUMMARY A/OX3, FORGETFUL. SPO2 >92% ON RA. TELE SR 70S-80S, DENIES CHEST PAIN/PRESSURE. WEEPING EDEMA T/O. SAUL PATENT AND DRAINING. VSS, NO ACUTE CHANGES AT THIS TIME. BED IN LOWEST POSITION WITH CALL LIGHT IN REACH. WILL CONTINUE TO MONITOR AND REPORT TO ONCOMING RN.
[2022-10-20 07:31] VITALS: BP 140/75
--- NOTE | 2022-10-20 09:42 | NUR ---
AM NOTE ASSUMED CARE OF PT. PT IS ALERT AND ORIENTATED TO PERSON, PLACE, TIME, AND SITUATION, BUT IS FORGETFUL AT TIMES. PT'S VITAL SIGNS ARE STABLE AT THIS TIME. PT COMPLAINS OF 10/10 GENERALIZED PAIN, EMAR UPDATED. LUNGS SOUNDS ARE CLEAR, BUT DIMMINISHED IN THE BASES. DENIES CHEST PAIN, SHORTNESS OF BREATH, ABDOMINAL PAIN, NAUSEA, OR DIZZINESS. UP AT BEDSIDE WITH OCCUPATIONAL THERAPY. WILL CONTINUE TO MONITOR PT.
[2022-10-20 11:57] VITALS: BP 127/68
[2022-10-20 15:34] VITALS: BP 143/82
--- NOTE | 2022-10-20 16:45 | NUR ---
TX NOTE PT REMAINED ALERT AND ORIENTATED THROUGHOUT THE SHIFT. VITAL SIGNS REMAINED STABLE. DENIES COMPLAINTS OF CHEST PAIN, SHORTNESS OF BREATH, NAUSEA, OR ABDOMINAL PAIN. PT CONTINUES TO COMPLAIN ABOUT THE FLUID RESTRICTION, BUT IS COMPLIANT. REPORT CALLED TO ROSLAINA ON THE MEDICAL FLOOR TRANSFERED VIA [facility].
--- NOTE | 2022-10-20 17:09 | NUR ---
I have reviewed the practical nursing faculty documentation and am in agreement
--- NOTE | 2022-10-20 18:20 | NUR ---
SHIFT SUMMARY 1625 RECEIVED PT TO RM 351 VIA BED FROM PCU 9. 4P SLIDE TX TO BED. PT VERY STIFF AND UNWILLING TO MOVE AT ALL. PT ADMITTED FOR METABOLIC ENCEPHALOPATHY; PER REPORT, FOUND DOWN AT HOME. PT WITH HTN, DM, AND CKD; PLACED ON 1000cc F/R BUT NOT HAPPY ABOUT IT. PT IS VERY EDEMATOUS BODY WIDE, WITH WEEPING EDEMA ON ALL EXTREMITIES. PT ALSO WITH WOUNDS BODY WIDE. SAUL TO GRAVITY; PATENT AND DRAINING CL YELLOW. PLAN TO D/C TO SNF IF POSSIBLE. CALL LT IN REACH.
[2022-10-20 22:14] VITALS: BP 151/81
--- NOTE | 2022-10-21 02:07 | NUR ---
RECEIVED CALL FROM [employer] @ 0246. 8 SECOND RUN OF SVT NOTED AND SCANNED INTO TO PT CHART.
[2022-10-21 02:30] LABS: Hematocrit 22.7 % (37.0-53.0); Hemoglobin 7.4 g/dL (13.5-17.5)
[2022-10-21 02:44] LABS: Anion Gap 5 mmol/L (6-16); Blood Urea Nitrogen 56 mg/dL (8-24); Bun/Creatinine Ratio 33.5 (12.0-20.0); CO2, Blood 31 mmol/L (21-32); Calcium, Blood 7.6 mg/dL (8.5-10.1); Chloride, Blood 110 mmol/L (98-108); Creatinine, Blood 1.67 mg/dL (0.60-1.20); Glomerular Filtration Rate 47 (60-); Glucose, Blood 229 mg/dL (70-99); Magnesium, Blood 1.7 mg/dL (1.6-2.4); Phosphorus, Blood 3.1 mg/dL (2.5-4.9); Sodium, Blood 146 mmol/L (136-145)
--- NOTE | 2022-10-21 05:01 | NUR ---
SHIFT SUMMARY: PT A&O X3. PT HAS BEEN MOSTLY PLEASANT BUT NOT COOPERATIVE WITH CARE. PT HAD 300 CC OF FLUID LEFT TO HAVE WITH KNOWLEDGE MANAGER UNTIL MORNING. PT HOLLERED OUT SEVERAL TIMES TO BRING HIM WATER AND THAT MOUTH WAS VERY DRY. ATTEMPTED TO EXPLAIN TO PT WHY HE COULD NOT HAVE ANY MORE FLUIDS. PT SKIN WEEPING AT BEGINNING OF SHIFT BUT HAS GOTTEN BETTER THROUGHOUT SHIFT. PT HAS PG IN LEFT UPPER ARM. LABS DRAWN FROM PG AT 0210. CALLED DR. OJEDA WITH RESULTS. NEW ORDERS PLACED FOR ONE TIME IV POTASSIUM, TID SPIRONOLACTONE AND 25 GM ALBUMIN. PT UNABLE TO MOVE EXTREMITIES TO FEED SELF OR PRESS CALL LIGHT. PT ON TELE RUNNING SINUS RHYTHM. PT HAD 8 SECOND RUN OF SVT THIS SHIFT. STRIP IN [employer]. SAUL PATENT AND DRAINING TO GRAVITY. CALL LIGHT IN REACH. BED IN LOWEST POSITION. WILL CONTINUE TO MONITOR.
[2022-10-21 05:45] VITALS: BP 165/94
[2022-10-21 07:21] VITALS: BP 156/103
[2022-10-21 10:29] LABS: BASOPHILS ABSOLUTE AUTO 0.02 K/mm3 (0.00-0.23); BASOPHILS PERCENT AUTO 0 % (0-2); EOSINOPHILS ABSOLUTE AUTO 0.41 K/mm3 (0.00-0.68); EOSINOPHILS PERCENT AUTO 4 % (0-6); Hematocrit 22.5 % (37.0-53.0); Hemoglobin 7.5 g/dL (13.5-17.5); IMMATURE GRAN ABSOLUTE AUTO 0.29 K/mm3 (0.00-0.10); IMMATURE GRAN PERCENT AUTO 3 % (0-1); LYMPHOCYTES ABSOLUTE AUTO 1.89 K/mm3 (0.84-5.20); LYMPHOCYTES PERCENT AUTO 17 % (21-46); MONOCYTES ABSOLUTE AUTO 0.36 K/mm3 (0.16-1.47); MONOCYTES PERCENT AUTO 3 % (4-13); Mean Corpuscular HGB 29.3 pg (26.0-34.0); Mean Corpuscular HGB Conc 33.3 g/dL (31.5-36.5); Mean Corpuscular Volume 88 fL (80-100); Mean Platelet Volume 12.3 fL (9.1-12.4); NEUTROPHILS ABSOLUTE AUTO 8.23 K/mm3 (1.96-9.15); NEUTROPHILS PERCENT AUTO 73 % (41-73); Platelet Count 80 K/mm3 (150-400); RDW Coefficient Variation 15.9 % (11.7-14.2); RDW Standard Deviation 50.9 fL (35.1-46.3); Red Blood Cell Count 2.56 M/mm3 (4.30-5.90)
[2022-10-21 14:58] VITALS: BP 144/89
--- NOTE | 2022-10-21 17:48 | NUR ---
PT HAD NO ACUTE CHANGES THIS SHIFT. PT HAS BEEN HARD TO KEEP ON FLUID RESTRICTIONS DUE TO COMMING IN AND WAS TRYING TO GIVE PT MORE ICE AND WAS NOT FOLLOWING INSTRUCTIONS WITH PT'S NEEDS. PT HAD PAIN AND DR SHI WAS NOTIFIED AND CHANGED ADMINISTRATION TIME. WAS GETTING UP SET WHEN STUDENT AID SEEN HER GIVING PT ICE AND WATER WITHOUT APPROVAL. SHE THEN STARTIG CURSING AT EVERYONE AND SECURITY HAD TO ESCORT HER OUT. PT HAS BEEN GOOD AND APPROPRAITE WITH CARE. NO DISTESS NOTED AT THIS TIME. CALL LIGHT WITHIN REACH WILL CONTINUE TO MONITOR.
--- NOTE | 2022-10-21 17:56 | NUR ---
SEE NURSES NOTE FOR DAY SHIFT SUMMARY.
[2022-10-21 20:35] VITALS: BP 173/83
[2022-10-22 03:05] VITALS: BP 174/86
--- NOTE | 2022-10-22 04:36 | NUR ---
SHIFT SUMMERY, PT RESTING IN BED, PT BEING TURNED AND REPOSITIONED. PT NOT WANTING TO BE TURNED OR REPOSITIONED EVEN EHEN EXSPLANED ABOUT PREVENTION OG PREASURE SORES. PT HAS HAD LIMIT OF FLOODID AWHILE AGO AND CONSTANTLY IS BEGGING FOR MORE FLUIDS. ORAL SWABS USED TO MOSITN MOUTH AND CHAPSTICK APPLYED TO LIPS. GAVE PT SOME APPLESAUSE FOR COMFORT AND PT REQUESTED A SECOND. THEN BEGGING FOR MOR FLUIDS. EXPANED REASONS WHY PT CAN NOT HAVE MORE FLUIDS BUT PT UNABLE TO REMEMBER OF UNDERSTAND. CALL LIGHT IN REACH.
--- NOTE | 2022-10-22 04:53 | NUR ---
SHIFT SUMMEY. PT RESTING IN BED, PT MEDICATED X 4 . PT VERY PAINFULL WITH ANY MOVEMENT . ATTEMPTED TO PUT PILLOW MORE UNDER HIS HEAD AND PT CRYED OUT IN PAIN, PT CURRENTLY TURNED TO HIS SIDE AND PT DEPENDS CHANGED. PT HAS ON O2 PT ON RA WHEN AWAKE SATING 93 BUT WHEN PT FALLS ASLEEP OR MEDICATED DESATS TO 88%. CALL LIGHT IN REACH.
[2022-10-22 06:22] LABS: BASOPHILS ABSOLUTE AUTO 0.03 K/mm3 (0.00-0.23); BASOPHILS PERCENT AUTO 0 % (0-2); EOSINOPHILS PERCENT AUTO 5 % (0-6); Hematocrit 24.3 % (37.0-53.0); Hemoglobin 7.8 g/dL (13.5-17.5); IMMATURE GRAN ABSOLUTE AUTO 0.21 K/mm3 (0.00-0.10); IMMATURE GRAN PERCENT AUTO 2 % (0-1); LYMPHOCYTES ABSOLUTE AUTO 1.81 K/mm3 (0.84-5.20); LYMPHOCYTES PERCENT AUTO 17 % (21-46); MONOCYTES ABSOLUTE AUTO 0.34 K/mm3 (0.16-1.47); MONOCYTES PERCENT AUTO 3 % (4-13); Mean Corpuscular HGB 28.8 pg (26.0-34.0); Mean Corpuscular HGB Conc 32.1 g/dL (31.5-36.5); Mean Corpuscular Volume 90 fL (80-100); Mean Platelet Volume 10.8 fL (9.1-12.4); NEUTROPHILS ABSOLUTE AUTO 7.74 K/mm3 (1.96-9.15); NEUTROPHILS PERCENT AUTO 73 % (41-73); Platelet Count 136 K/mm3 (150-400); RDW Coefficient Variation 15.9 % (11.7-14.2); RDW Standard Deviation 51.4 fL (35.1-46.3); Red Blood Cell Count 2.71 M/mm3 (4.30-5.90); White Blood Cell Count 10.63 K/mm3 (4.00-11.30)
[2022-10-22 06:27] LABS: Albumin, Blood 1.4 g/dL (3.4-5.0); Anion Gap 5 mmol/L (6-16); Blood Urea Nitrogen 41 mg/dL (8-24); Bun/Creatinine Ratio 32.8 (12.0-20.0); CO2, Blood 29 mmol/L (21-32); Calcium, Blood 7.4 mg/dL (8.5-10.1); Chloride, Blood 108 mmol/L (98-108); Creatinine, Blood 1.25 mg/dL (0.60-1.20); Glomerular Filtration Rate 67 (60-); Glucose, Blood 205 mg/dL (70-99); Magnesium, Blood 1.4 mg/dL (1.6-2.4); Phosphorus, Blood 2.4 mg/dL (2.5-4.9); Potassium, Blood 3.1 mmol/L (3.5-5.5); Sodium, Blood 142 mmol/L (136-145)
[2022-10-22 07:48] VITALS: BP 175/91
[2022-10-22 15:42] VITALS: BP 163/84
--- NOTE | 2022-10-22 18:32 | NUR ---
SHIFT SUMMARY: NO EVENTS ON TELEMETRY, SR 80'S. A&O X 2, CANNOT MOVE BILATERAL ARMS (REASON UNKNOWN), NEEDS FEEDING ASSISTANCE. CALLS OUT CONSTANTLY FOR WATER AND ICE CHIPS. SAUL DRAINING COPIOUS URINE. NO BM TODAY, PRN BOWEL MEDS GIVEN. LOW SS INSULIN ADDED. RECEIVED 786 ML OF IVF TODAY FOR ELECTROLYTE REPLACEMENT/ABX/ALBUMIN. WORKED WITH PT/OT, ABLE TO DANGLE AND STAND FOR A SHORT TIME.
[2022-10-22 20:41] VITALS: BP 172/90
[2022-10-23 04:00] VITALS: BP 174/93
--- NOTE | 2022-10-23 05:24 | NUR ---
SHIFT SUMMARY PT LAYING IN BED DURING BEDSIDE REPORT- PT REQUESTED PAIN MEDICATION FOR ALL OVER PAIN- PT YELLS OUT T/O SHIFT WANTING TO DRINK OR EAT ICE- ENCOUAGE PT TO USE SOFT TOUCH CALL LIGHT OR NOT YELL OUT FOR WATER- PT REPORTS ARMS ARE PAINFUL AND HE CAN'T MOVE THEM- PT ALLOWED STAFF TO MOVE Q2H AND ELEVATE BUE - RIGHT UE HAS PURULENT DRAINAGE BED LOW POSITION, CALL LIGHT WITHIN REACH, BED ALARM IN PLACE
[2022-10-23 06:34] LABS: Hematocrit 24.6 % (37.0-53.0); Hemoglobin 7.8 g/dL (13.5-17.5); Mean Corpuscular HGB 28.9 pg (26.0-34.0); Mean Corpuscular HGB Conc 31.7 g/dL (31.5-36.5); Mean Corpuscular Volume 91 fL (80-100); Mean Platelet Volume 10.6 fL (9.1-12.4); Platelet Count 180 K/mm3 (150-400); RDW Standard Deviation 53.1 fL (35.1-46.3); White Blood Cell Count 9.79 K/mm3 (4.00-11.30)
[2022-10-23 06:56] LABS: Albumin, Blood 1.8 g/dL (3.4-5.0); Anion Gap 5 mmol/L (6-16); Blood Urea Nitrogen 29 mg/dL (8-24); Bun/Creatinine Ratio 28.7 (12.0-20.0); CO2, Blood 29 mmol/L (21-32); Calcium, Blood 7.8 mg/dL (8.5-10.1); Chloride, Blood 109 mmol/L (98-108); Creatinine, Blood 1.01 mg/dL (0.60-1.20); Glomerular Filtration Rate 87 (60-); Glucose, Blood 161 mg/dL (70-99); Magnesium, Blood 1.5 mg/dL (1.6-2.4); Phosphorus, Blood 2.6 mg/dL (2.5-4.9); Potassium, Blood 3.4 mmol/L (3.5-5.5); Sodium, Blood 143 mmol/L (136-145)
[2022-10-23 07:41] VITALS: BP 187/97
[2022-10-23 10:41] LABS: International Normalized Ratio 0.98; Prothrombin Time Results 10.3 Sec (9.7-11.5)
[2022-10-23 15:04] VITALS: BP 149/87
--- NOTE | 2022-10-23 18:34 | NUR ---
SHIFT SUMMARY NO ACUTE CHANGES THIS SHIFT. VSS. MEDICATED FOR C/O PAIN PER EMAR. PT CONTINUES TO HAVE ALL OVER WEEPING EDEMA. BEING DIURESED WITH GOOD EFFECT PER EMAR. UO PER I&O FLOWSHEET. IS ON A FLUID ALLOWANCE OF 1L PER 24 HR. PT HAS BEEN COUNSELED ON NEED FOR FLUID ALLOWANCE AND CLINICAL REASON, PT STATES UNDERSTANDING AND IS WILLING TO PARTICIPATE WITH MD ORDER. HAS NO LONGER YELLED OUT FOR WATER OR ICE CHIPS. F/C IN PLACE FOR CONCISE ACCURATE I&O. F/C CARE DONE PER PROTOCOL BY CHEMICAL CHECKER. NILO BENZ IN R UA INTACT & PATENT. DRAWS WELL FOR LABS. IS PLEASANT & COOPERATIVE WITH ALL CARE. K & MAG REPLACED PER MD ORDER. BLOOD SUGARS COVERED PER EMAR NEEDED. PLAN IS FOR PLACEMENT FOR REHAB UPON DC.
[2022-10-23 20:18] VITALS: BP 153/82
[2022-10-24 04:21] VITALS: BP 165/88
--- NOTE | 2022-10-24 05:38 | NUR ---
SHIFT SUMMARY PT LAYING IN BED ASLEEP DURING BEDSIDE REPORT - PT TOOK SCHEDULED HS MEDS WITHOUT PROBLEMS, GAVE PT SNACK, PT REPORTED THAT HE DIDN'T BELIEVE HE HAD DINNER- PT ATE 1/2 SANDWICH AND SF JELLO AN PUDDING- PT TOOK MEDICATIONS WITH WATER AND EATING ICE CHIPS D/T FLUID RESTRICTION- PT BEHAVIOR IMPROVED COMPARED TO PREVIOUS NIGHT WHEN PT WAS YELLING OUT FOR WATER AND ICE- SAUL CATH CONTINUES TO PUT OUT LARGE AMOUNT OF CLEAR YELLOW URINE, BED LOW POSITIONS, CALL LIGHT WITHIN REACH, BED ALARM IN PLACE
[2022-10-24 07:57] VITALS: BP 150/88
[2022-10-24 09:29] LABS: BASOPHILS ABSOLUTE AUTO 0.07 K/mm3 (0.00-0.23); BASOPHILS PERCENT AUTO 1 % (0-2); EOSINOPHILS PERCENT AUTO 2 % (0-6); Hemoglobin 7.7 g/dL (13.5-17.5); IMMATURE GRAN ABSOLUTE AUTO 0.13 K/mm3 (0.00-0.10); IMMATURE GRAN PERCENT AUTO 1 % (0-1); LYMPHOCYTES ABSOLUTE AUTO 1.77 K/mm3 (0.84-5.20); LYMPHOCYTES PERCENT AUTO 16 % (21-46); MONOCYTES ABSOLUTE AUTO 0.45 K/mm3 (0.16-1.47); MONOCYTES PERCENT AUTO 4 % (4-13); Mean Corpuscular HGB 28.5 pg (26.0-34.0); Mean Corpuscular HGB Conc 30.8 g/dL (31.5-36.5); Mean Corpuscular Volume 93 fL (80-100); Mean Platelet Volume 9.6 fL (9.1-12.4); NEUTROPHILS ABSOLUTE AUTO 8.55 K/mm3 (1.96-9.15); NEUTROPHILS PERCENT AUTO 77 % (41-73); Platelet Count 261 K/mm3 (150-400); RDW Coefficient Variation 15.9 % (11.7-14.2); RDW Standard Deviation 53.7 fL (35.1-46.3); White Blood Cell Count 11.17 K/mm3 (4.00-11.30)
[2022-10-24 09:53] LABS: Anion Gap 7 mmol/L (6-16); Blood Urea Nitrogen 24 mg/dL (8-24); Bun/Creatinine Ratio 25.8 (12.0-20.0); CO2, Blood 25 mmol/L (21-32); Chloride, Blood 109 mmol/L (98-108); Creatinine, Blood 0.93 mg/dL (0.60-1.20); Glomerular Filtration Rate 96 (60-); Glucose, Blood 205 mg/dL (70-99); Magnesium, Blood 1.5 mg/dL (1.6-2.4); Phosphorus, Blood 2.4 mg/dL (2.5-4.9); Potassium, Blood 3.6 mmol/L (3.5-5.5); Sodium, Blood 141 mmol/L (136-145)
[2022-10-24 16:04] VITALS: BP 148/79
--- NOTE | 2022-10-24 17:35 | NUR ---
SHIFT SUMMARY NO ACUTE CHANGES DURING SHIFT. PT ALERT AND ORIENTED, CALLS APPROPRIATELY. PT C/O PAIN, MEDICATED WITH PRN MEDS PER EMAR. IV DIURESIS, SAUL IN PLACE, DRAINING TO GRAVITY. LARGE AMOUNT OF OUPUT. PT REMAINS ON 1L FLUID RESTRICTION. WILL CONTINUE TO MONITOR. CALL LIGHT WITHIN REACH.
[2022-10-24 20:35] VITALS: BP 137/80
[2022-10-25 05:30] VITALS: BP 144/108
[2022-10-25 05:36] LABS: Hematocrit 25.3 % (37.0-53.0); Hemoglobin 7.7 g/dL (13.5-17.5)
--- NOTE | 2022-10-25 05:59 | NUR ---
SHIFT SUMMARY PT ASLEEP DURING BEDSIDE ROUNDS- SAUL CATHETER DRAING LIGHT CLEAR URINE- PT TOOK SCHEDULED MEDICATIONS WITHOUT PROBLEMS, PT REQUESTED SNACK, PT FORGETFUL AND DOSESN'T REMEMBER IF HE ATE- REORIENTED PT AND PROVIDED SNACK- PT ATE W/O C/O NAUSEA, 0045 PT REQUESTED PAIN MEDICATION, GAVE NORCO PER ORDER- PT BED WET FROM SAUL TUBING KINKED D/T LEG SECURE COMING OFF- SAUL IMMEDIATELY DRAINED APPROXIMATELY 525 ML IN TO BAG- PT REPOSITIONED PER HIS REQUEST OFTEN T/O NIGHT, REMOVED FOAM BANDAGE FROM COCYX, AREA HAS REDUCE BLANCHING- NO OPEN AREA- PT COMPLIENT WITH FLUID RESTRICTION- PT NO LONGER YELLING OUT FOR WATER OR ICE, SOFT TOUCH CALL LIGHT GIVEN TO PT AND PLACE BY RIGHT ARM WHICH HE CAN MOVE- PT CALLS OUT FOR NURSE INSTEAD OF USING CALL LIGHT, BED LOW POSITION, BED ALARM IN PLACE
[2022-10-25 06:14] LABS: Anion Gap 6 mmol/L (6-16); Blood Urea Nitrogen 23 mg/dL (8-24); CO2, Blood 24 mmol/L (21-32); Calcium, Blood 8.5 mg/dL (8.5-10.1); Chloride, Blood 109 mmol/L (98-108); Creatinine, Blood 0.88 mg/dL (0.60-1.20); Glomerular Filtration Rate 100 (60-); Glucose, Blood 147 mg/dL (70-99); Magnesium, Blood 1.6 mg/dL (1.6-2.4); Phosphorus, Blood 2.9 mg/dL (2.5-4.9); Potassium, Blood 3.9 mmol/L (3.5-5.5); Sodium, Blood 139 mmol/L (136-145)
[2022-10-25 08:10] VITALS: BP 142/90
[2022-10-25 15:06] VITALS: BP 117/74
--- NOTE | 2022-10-25 16:51 | NUR ---
SHIFT SUMMARY NO ACUTE CHANGES DURING SHIFT. PT ALERT AND ORIENTED, CALLS APPROPRIATELY. PT REMAINS ON RA, BR. PT WITH SAUL FOR STRICT I/O'S, DRAINING TO GRAVITY. DECREASED URINE OUTPUT TODAY. IV DIURESIS, EFFECTIVE. REMAINS ON 1L FLUID RESTRICTION. PRN PAIN MEDICATIONS ADMINISTERED MULTIPLE TIMES PER EMAR. WILL CONTINUE TO MONITOR. CALL LIGHT WITHIN REACH.
[2022-10-25 20:47] VITALS: BP 131/95
[2022-10-26 04:17] VITALS: BP 120/71
[2022-10-26 05:56] LABS: Hematocrit 23.8 % (37.0-53.0); Hemoglobin 7.4 g/dL (13.5-17.5)
[2022-10-26 06:34] LABS: Albumin, Blood 2.3 g/dL (3.4-5.0); Anion Gap 6 mmol/L (6-16); Blood Urea Nitrogen 25 mg/dL (8-24); CO2, Blood 23 mmol/L (21-32); Calcium, Blood 8.9 mg/dL (8.5-10.1); Chloride, Blood 107 mmol/L (98-108); Creatinine, Blood 0.96 mg/dL (0.60-1.20); Glomerular Filtration Rate 92 (60-); Glucose, Blood 145 mg/dL (70-99); Magnesium, Blood 1.6 mg/dL (1.6-2.4); Phosphorus, Blood 3.2 mg/dL (2.5-4.9); Potassium, Blood 4.8 mmol/L (3.5-5.5); Sodium, Blood 136 mmol/L (136-145)
--- NOTE | 2022-10-26 07:53 | NUR ---
KELLY TRIED SO HARD TO MAKE IT THROUGH THE NIGHT WITHOUT ASKING FOR EXTRA WATER. VERY MINIMAL H20 WITH PO MEDS, AND A FEW ICE CUBES TO SATISFY HIS NEED. LEFT ARM ACTUALLY HAD WRINKLES IN IT MUCH LIKE HIS OTHER EXTREMITIES. OXYCODONE GIVEN TWICE FOR GENERALIZED PAIN. 4600 NET URINE PAST 24 HOURS
[2022-10-26 07:58] VITALS: BP 124/102
[2022-10-26 16:06] VITALS: BP 122/76
--- NOTE | 2022-10-26 16:08 | NUR ---
END OF SHIFT SUMMARY PT ALERT AND ORIENTED X3. COOPERATIVE WITH CARE. PT ON FLUID RESTRICTION OF 1L. MONITORED STRICT I&O's. SAUL IN PLACE DRAINING LARGE AMOUNT CLEAR, YELLOW URINE. FREQUENTLY ASKS FOR ICE CHIPS. FRIENDS BROUGHT HIM SUGAR FREE GUM TO CHEW ON. PT COMPLAINS OF GENERALIZED PAIN, MEDICATED PER MAR AND PROVIDED FREQUENT REPOSITIONING. PT HAS TROUBLE USING HANDS, HAS SOFT TOUCH CALL LIGHT IN PLACE NEAR THE RIGHT HAND, BED ALARM IN PLACE. FRIENDS AND FAMILY AT BEDSIDE T/O THE DAY.
--- NOTE | 2022-10-26 17:57 | NUR ---
REVIEWED ASSESSMENTS AND NOTED CHARTED BY SILVINA VARGAS NURSE AND AGREE WITH HER DOCUMENTATION FOR THIS PATIENT.
[2022-10-26 19:55] VITALS: BP 113/72
--- NOTE | 2022-10-27 03:53 | NUR ---
SHIFT HAS BEEN UNREMARKABLE. PT IS AOX4 UPON ANSWERING QUESTIONS R/T ORIENTATION BUT OCCASIONALLY SAYS NONSENSICAL THINGS. OVERALL PLEASANT, COOPERATIVE WITH CARE BUT BECOMES QUICKLY AGITATED WITH INCREASED FREQUENCY OF CARE OR NOT BEING ALLOWED TO DO THINGS ON HER OWN. SBA TO BATHROOM. SATTING WELL ON 3 LITERS OF O2 VIA NC. PAIN WELL MANAGED ON CURRENT MEDICATION REGIMEN. HAS BEEN SLEEPING THROUGHOUT MUCH OF SHIFT. ABLE TO TAKE KEPPRA CAPSULE OPENED INTO PUDDING BUT ONLY ABLE TO TOLERATE VERY LITTLE AMOUNT OF PUDDING AND HAS NOT EATEN ANY OTHER FOOD THIS SHIFT. BED REMAINS LOCKED IN LOWEST POSITION. CALL LIGHT IS LEFT WITHIN REACH WHICH SHE USES APPROPRIATELY.
[2022-10-27 04:37] VITALS: BP 123/75
[2022-10-27 05:59] LABS: Hematocrit 24.2 % (37.0-53.0); Hemoglobin 7.6 g/dL (13.5-17.5)
[2022-10-27 06:15] LABS: Albumin, Blood 2.1 g/dL (3.4-5.0); Anion Gap 7 mmol/L (6-16); Blood Urea Nitrogen 31 mg/dL (8-24); Bun/Creatinine Ratio 30.4 (12.0-20.0); CO2, Blood 23 mmol/L (21-32); Calcium, Blood 9.1 mg/dL (8.5-10.1); Chloride, Blood 104 mmol/L (98-108); Creatinine, Blood 1.02 mg/dL (0.60-1.20); Glomerular Filtration Rate 86 (60-); Glucose, Blood 152 mg/dL (70-99); Magnesium, Blood 1.8 mg/dL (1.6-2.4); Phosphorus, Blood 4.1 mg/dL (2.5-4.9); Potassium, Blood 4.4 mmol/L (3.5-5.5); Sodium, Blood 134 mmol/L (136-145)
[2022-10-27 07:16] LABS: BASOPHILS PERCENT AUTO 1 % (0-2); EOSINOPHILS PERCENT AUTO 1 % (0-6); IMMATURE GRAN ABSOLUTE AUTO 0.07 K/mm3 (0.00-0.10); IMMATURE GRAN PERCENT AUTO 1 % (0-1); LYMPHOCYTES PERCENT AUTO 19 % (21-46); MONOCYTES ABSOLUTE AUTO 0.57 K/mm3 (0.16-1.47); MONOCYTES PERCENT AUTO 6 % (4-13); Mean Corpuscular HGB 28.1 pg (26.0-34.0); Mean Corpuscular HGB Conc 30.8 g/dL (31.5-36.5); Mean Corpuscular Volume 91 fL (80-100); Mean Platelet Volume 8.9 fL (9.1-12.4); NEUTROPHILS ABSOLUTE AUTO 7.32 K/mm3 (1.96-9.15); NEUTROPHILS PERCENT AUTO 73 % (41-73); Platelet Count 537 K/mm3 (150-400); RDW Coefficient Variation 15.7 % (11.7-14.2); RDW Standard Deviation 51.9 fL (35.1-46.3); Red Blood Cell Count 2.85 M/mm3 (4.30-5.90); White Blood Cell Count 10.06 K/mm3 (4.00-11.30)
[2022-10-27 07:46] VITALS: BP 113/75
[2022-10-27 07:46] LABS: International Normalized Ratio 0.98; Prothrombin Time Results 10.3 Sec (9.7-11.5)
[2022-10-27 14:55] VITALS: BP 100/66
--- NOTE | 2022-10-27 17:55 | NUR ---
END OF SHIFT SUMMARY PT ALERT AND ORIENTED, COOPERATIVE WITH CARE. DID BETTER TODAY WITH FOLLOWING FLUID RESTRICTION AND ASKED LESS ABOUT ICE CHIPS. STRICT I&O MONITORING. PT WAS TO HAVE RENAL BIOPSY PERFORMED TODAY, BECAME ANXIUOS, ORDERED CLONAZEPAM. ONCE DOWN IN IMAGING PT REFUSED THE BIOPSY. CALLED DR VILLAFANA TO LET HER KNOW. PT COMPLAINS OF GENERALIZED PAIN, TREATED PER JUL. SAUL IN PLACE, DRAINING LARGE AMOUNTS OF YELLOW URINE. PT WORKED WITH PATIENT. SOFT TOUCH CALL LIGHT PLACED BY RIGHT ARM. PT MORE ABLE TO FEED HIMSELF THAN HE WAS YESTERDAY BUT STILL REQUIRES ASSISTANCE WITH FEEDING.
--- NOTE | 2022-10-27 18:18 | NUR ---
REVIEWED ASSESSMENT AND NOTES CHARTED BY SAM, STUDENT NURSE AND AGREE WITH HER DOCUMENTATION FOR THIS PATIENT.
[2022-10-27 19:23] VITALS: BP 95/59
[2022-10-28 03:23] VITALS: BP 115/73
--- NOTE | 2022-10-28 04:45 | NUR ---
SHIFT HAS BEEN UNREMARKABLE. PT HAS SLEPT THROUGH MUCH OF SHIFT, OCCASIONALLY WAKING TO REQUEST PAIN MEDICATION. 1700 MLS OF URINE OUTPUT INTO SAUL THUS FAR THIS SHIFT. PT REMAINS AOX3-4, COOPERATIVE WITH CARE. VERY WEAK BILATERALLY. USES CALL LIGHT APPROPRIATELY MOST OF THE TIME. LIKELY BIOPSY TO BE COMPLETED SOON PER DAY SHIFT REPORT. BED LOCKED IN LOWEST POSITION. CALL LIGHT LEFT WITHIN REACH.
[2022-10-28 06:37] LABS: BASOPHILS PERCENT AUTO 1 % (0-2); EOSINOPHILS ABSOLUTE AUTO 0.06 K/mm3 (0.00-0.68); EOSINOPHILS PERCENT AUTO 1 % (0-6); Hematocrit 23.2 % (37.0-53.0); Hemoglobin 7.4 g/dL (13.5-17.5); IMMATURE GRAN ABSOLUTE AUTO 0.05 K/mm3 (0.00-0.10); IMMATURE GRAN PERCENT AUTO 1 % (0-1); LYMPHOCYTES ABSOLUTE AUTO 2.06 K/mm3 (0.84-5.20); LYMPHOCYTES PERCENT AUTO 21 % (21-46); MONOCYTES ABSOLUTE AUTO 0.62 K/mm3 (0.16-1.47); MONOCYTES PERCENT AUTO 6 % (4-13); Mean Corpuscular HGB 28.2 pg (26.0-34.0); Mean Corpuscular HGB Conc 31.9 g/dL (31.5-36.5); Mean Corpuscular Volume 89 fL (80-100); NEUTROPHILS ABSOLUTE AUTO 6.89 K/mm3 (1.96-9.15); NEUTROPHILS PERCENT AUTO 71 % (41-73); Platelet Count 580 K/mm3 (150-400); RDW Coefficient Variation 15.8 % (11.7-14.2); RDW Standard Deviation 51.1 fL (35.1-46.3); Red Blood Cell Count 2.62 M/mm3 (4.30-5.90); White Blood Cell Count 9.78 K/mm3 (4.00-11.30)
[2022-10-28 07:03] LABS: Albumin, Blood 2.1 g/dL (3.4-5.0); Anion Gap 8 mmol/L (6-16); Blood Urea Nitrogen 36 mg/dL (8-24); Bun/Creatinine Ratio 36.3 (12.0-20.0); CO2, Blood 22 mmol/L (21-32); Calcium, Blood 9.2 mg/dL (8.5-10.1); Chloride, Blood 103 mmol/L (98-108); Creatinine, Blood 0.99 mg/dL (0.60-1.20); Glomerular Filtration Rate 89 (60-); Glucose, Blood 147 mg/dL (70-99); Magnesium, Blood 1.8 mg/dL (1.6-2.4); Phosphorus, Blood 3.9 mg/dL (2.5-4.9); Potassium, Blood 4.1 mmol/L (3.5-5.5); Sodium, Blood 133 mmol/L (136-145)
[2022-10-28 08:22] VITALS: BP 118/82
[2022-10-28 16:38] VITALS: BP 118/79
--- NOTE | 2022-10-28 18:01 | NUR ---
Patient reports severe pain t/o day, managed pain w/ warm blankets, tylenol & norco. Plan is to have renal bx tomorrow morning, Dilaudid ordered for pain control before procedure. Patient wokred with therapy today, got OOB walked to chair. Vitals stable.
[2022-10-28] MEDS ORDERED: ALPR.5 PO (19:01)
[2022-10-28 20:21] VITALS: BP 115/69
[2022-10-29] VITALS (9 sets, daily range): BP systolic 94–123; BP diastolic 65–87
--- NOTE | 2022-10-29 03:54 | NUR ---
SHIFT HAS BEEN MOSTLY UNREMARKABLE. PT COMPLAINED OF DISCOMFORT IN STOMACH EARLY THIS MORNING THAT WAS ALLEVIATED WITH PRN ZOFRAN. PAIN ADEQUATELY MANAGED ON CURRENT MEDICATION REGIMEN. PT IS TOLERATING FLUID RESTRICTION BETTER THAN PREVIOUS SHIFTS AND IS MORE WILLING TO USE HIS ARMS TO ASSIST HIMSELF. PT REMAINS ANXIOUS ABOUT POSSIBLE RENAL BIOPSY TODAY AND HAD SOME QUESTIONS ABOUT IT. DISCUSSED BRIEFLY. AOX3-4. PLEASANT, COOPERATIVE WITH CARE. BED LOCKED IN LOWEST POSITION. CALL LIGHT LEFT WITHIN REACH.
[2022-10-29 05:45] LABS: Hematocrit 22.6 % (37.0-53.0); Hemoglobin 7.2 g/dL (13.5-17.5)
[2022-10-29 05:59] LABS: Albumin, Blood 2.1 g/dL (3.4-5.0); Anion Gap 8 mmol/L (6-16); Blood Urea Nitrogen 46 mg/dL (8-24); Bun/Creatinine Ratio 33.1 (12.0-20.0); CO2, Blood 22 mmol/L (21-32); Calcium, Blood 9.1 mg/dL (8.5-10.1); Chloride, Blood 102 mmol/L (98-108); Creatinine, Blood 1.39 mg/dL (0.60-1.20); Glomerular Filtration Rate 59 (60-); Glucose, Blood 148 mg/dL (70-99); Magnesium, Blood 1.8 mg/dL (1.6-2.4); Phosphorus, Blood 4.5 mg/dL (2.5-4.9); Sodium, Blood 132 mmol/L (136-145)
[2022-10-29 10:11] LABS: BASOPHILS ABSOLUTE AUTO 0.12 K/mm3 (0.00-0.23); BASOPHILS PERCENT AUTO 1 % (0-2); EOSINOPHILS ABSOLUTE AUTO 0.06 K/mm3 (0.00-0.68); EOSINOPHILS PERCENT AUTO 1 % (0-6); Hemoglobin 7.3 g/dL (13.5-17.5); IMMATURE GRAN ABSOLUTE AUTO 0.04 K/mm3 (0.00-0.10); IMMATURE GRAN PERCENT AUTO 0 % (0-1); LYMPHOCYTES ABSOLUTE AUTO 1.83 K/mm3 (0.84-5.20); LYMPHOCYTES PERCENT AUTO 20 % (21-46); MONOCYTES ABSOLUTE AUTO 0.71 K/mm3 (0.16-1.47); MONOCYTES PERCENT AUTO 8 % (4-13); Mean Corpuscular HGB 28.2 pg (26.0-34.0); Mean Corpuscular HGB Conc 31.7 g/dL (31.5-36.5); Mean Corpuscular Volume 89 fL (80-100); NEUTROPHILS ABSOLUTE AUTO 6.33 K/mm3 (1.96-9.15); NEUTROPHILS PERCENT AUTO 70 % (41-73); Platelet Count 598 K/mm3 (150-400); RDW Coefficient Variation 15.6 % (11.7-14.2); RDW Standard Deviation 50.1 fL (35.1-46.3); Red Blood Cell Count 2.59 M/mm3 (4.30-5.90); White Blood Cell Count 9.09 K/mm3 (4.00-11.30)
[2022-10-29 10:25] LABS: International Normalized Ratio 0.98; Prothrombin Time Results 10.3 Sec (9.7-11.5)
--- NOTE | 2022-10-29 18:12 | NUR ---
SHIFT SUMMARY: Pt remains A&O X3 this shift. Wainwright effective for generalized pain. Kidney bx complete today. Per orders, no asa or bloodthinners for 48 hours post procedure. Vern herr'kami as ordered 1733. Will monitor for void. Urinal provided. Bed locked, in low position. Will continue to follow.
--- NOTE | 2022-10-29 18:24 | NUR ---
THIS RESEARCH ANALYST HAS REVIEWED AND AGREES WITH ALL NOTES AND ASSESSMENTS BY JAHAIRA AREVALO.
[2022-10-30 01:39] VITALS: BP 118/82
--- NOTE | 2022-10-30 06:13 | NUR ---
AO, VSS, PLEASANT. REPEATED REQUESTS FOR WATER AND SNACKS. MAINTAINED FLUID RESTRICTION. PT IS VOIDING ADEQUATELY FOLLOWING SAUL REMOVAL YESTERDAY. PT STATES HE IS BETTER ABLE TO USE HANDS THAN RECENTLY. REPORTS HIGH PAIN, MODERATE PAIN AFTER NORCO 5. UNEVENTFUL NIGHT.
[2022-10-30 06:32] LABS: Hematocrit 24.1 % (37.0-53.0); Hemoglobin 7.6 g/dL (13.5-17.5)
[2022-10-30 06:53] LABS: Albumin, Blood 1.9 g/dL (3.4-5.0); Anion Gap 8 mmol/L (6-16); Blood Urea Nitrogen 42 mg/dL (8-24); Bun/Creatinine Ratio 36.8 (12.0-20.0); CO2, Blood 21 mmol/L (21-32); Calcium, Blood 9.3 mg/dL (8.5-10.1); Chloride, Blood 103 mmol/L (98-108); Creatinine, Blood 1.14 mg/dL (0.60-1.20); Glomerular Filtration Rate 75 (60-); Glucose, Blood 135 mg/dL (70-99); Phosphorus, Blood 4.3 mg/dL (2.5-4.9); Potassium, Blood 3.7 mmol/L (3.5-5.5); Sodium, Blood 132 mmol/L (136-145)
[2022-10-30 07:24] VITALS: BP 112/70
[2022-10-30 15:23] VITALS: BP 111/71
--- NOTE | 2022-10-30 16:41 | NUR ---
SHIFT SUMMARY: Pt remains A&O x3 this shift. Generalized weakness noted. Up to chair today with PT. PT encourages to elevate BUE on pillows to ast with support and stiffness. Generalized pain managed with current regime. Fluid restrictions increased to 1500ml/day. Reinforcement needed with pt and friends to not provide additional soda. Voiding per urinal. BM today on BSC. No further needs ID or verbalized at this time.
--- NOTE | 2022-10-30 17:27 | NUR ---
THIS REAGENT TENDER HELPER HAS REVIEWED AND AGREES WITH ALL ASSESSMENTS BY JAHAIRA AREVALO.
[2022-10-31 02:33] VITALS: BP 135/83
[2022-10-31 04:48] LABS: Hemoglobin 7.6 g/dL (13.5-17.5)
[2022-10-31 05:06] LABS: Albumin, Blood 1.9 g/dL (3.4-5.0); Anion Gap 8 mmol/L (6-16); Blood Urea Nitrogen 43 mg/dL (8-24); Bun/Creatinine Ratio 38.1 (12.0-20.0); CO2, Blood 21 mmol/L (21-32); Calcium, Blood 9.5 mg/dL (8.5-10.1); Chloride, Blood 103 mmol/L (98-108); Creatinine, Blood 1.13 mg/dL (0.60-1.20); Glomerular Filtration Rate 76 (60-); Glucose, Blood 180 mg/dL (70-99); Potassium, Blood 3.4 mmol/L (3.5-5.5); Sodium, Blood 132 mmol/L (136-145)
[2022-10-31 07:39] VITALS: BP 146/85
[2022-10-31 15:07] VITALS: BP 121/80
--- NOTE | 2022-10-31 16:44 | NUR ---
1140- RN NOTIFIED DR. MARLIN DURAN THAT PT'S CHEM BG WAS 15 AND 10 MNUTES LATER AFTER FOOD/DRINKS, PT'S CHEM BG WAS 161. GAVE VERBAL OVER THE PHONE TO RECHECK PT'S BG IN 1 HR.
--- NOTE | 2022-10-31 18:24 | NUR ---
SUMMARY- NO ACUTE EVENTS THIS SHIFT. CALLS APPROPRIATELY. AAOX3-4. PT'S PAIN WELL CONTROLLED WITH PAIN MEDS. PT STARTED ITCHING HIS BLE SEVERELY THIS SHIFT AND ITCHED OFF MULTIPLE SCABS ON HIS BLE. MD ISAAC NOTIFIED AND BENADRYL GIVEN PO. ITCHING IMPROVED. PT ALSO HAD A CHEM BG OF 15 TODAY FOR LUNCH-PREVIOUSLY DOCUMENTED IN EARLIER NOTE.
[2022-10-31 19:25] VITALS: BP 129/85
[2022-11-01 04:14] VITALS: BP 126/95
[2022-11-01 04:41] LABS: Hematocrit 22.5 % (37.0-53.0); Hemoglobin 7.1 g/dL (13.5-17.5)
[2022-11-01 05:20] LABS: Albumin, Blood 1.7 g/dL (3.4-5.0); Anion Gap 10 mmol/L (6-16); Blood Urea Nitrogen 41 mg/dL (8-24); Bun/Creatinine Ratio 36.6 (12.0-20.0); CO2, Blood 20 mmol/L (21-32); Calcium, Blood 9.7 mg/dL (8.5-10.1); Chloride, Blood 105 mmol/L (98-108); Creatinine, Blood 1.12 mg/dL (0.60-1.20); Glomerular Filtration Rate 77 (60-); Glucose, Blood 141 mg/dL (70-99); Magnesium, Blood 1.9 mg/dL (1.6-2.4); Phosphorus, Blood 3.8 mg/dL (2.5-4.9); Potassium, Blood 3.6 mmol/L (3.5-5.5); Sodium, Blood 135 mmol/L (136-145)
--- NOTE | 2022-11-01 06:23 | NUR ---
MAINTAINED FLUID RESTRICTION, PT FRUSTRATED WITH RESTRICTION, FREQUENT REQUESTS FOR WATER BUT COMPLIANT AND PLEASANT. DID NOT GET OOB. USES URINAL INDEPENDENTLY, ADEQUATE OUTPUT. NO SIGNIFICANT CHANGES BUT CONTINUES TO GAIN STRENGTH AND MOBILITY IN EXTREMITIES.
[2022-11-01 07:35] VITALS: BP 131/92
[2022-11-01 16:13] VITALS: BP 123/84
--- NOTE | 2022-11-01 18:22 | NUR ---
SUMMARY- PT REFUSED TO GET OUT OF BED ALL SHIFT. PT REFUSED TO SIT ON THE SIDE OF THE BED ALL SHIFT. PT REFUSED TO SIT IN HIS RECLINER OR TAKE A WALK THIS SHIFT. PT WAS OFFERED EXERCISE BY STAFF MULTIPLE TIMES THIS SHIFT, AND PT REFUSED. AAOX4. MOSTLY CALM, BUT MULTIPLE IRRITABLE EPISODES THIS SHIFT. USES CALL LIGHT APPROPRIATELY.
[2022-11-02 04:30] LABS: Hematocrit 23.4 % (37.0-53.0); Hemoglobin 7.5 g/dL (13.5-17.5)
[2022-11-02 05:06] LABS: Albumin, Blood 1.6 g/dL (3.4-5.0); Anion Gap 9 mmol/L (6-16); Blood Urea Nitrogen 38 mg/dL (8-24); Bun/Creatinine Ratio 36.2 (12.0-20.0); CO2, Blood 21 mmol/L (21-32); Calcium, Blood 9.5 mg/dL (8.5-10.1); Chloride, Blood 104 mmol/L (98-108); Creatinine, Blood 1.05 mg/dL (0.60-1.20); Glomerular Filtration Rate 83 (60-); Glucose, Blood 135 mg/dL (70-99); Phosphorus, Blood 4.7 mg/dL (2.5-4.9); Potassium, Blood 3.8 mmol/L (3.5-5.5); Sodium, Blood 134 mmol/L (136-145)
--- NOTE | 2022-11-02 06:22 | NUR ---
AO, VSS, FREQUENT REQUESTS FOR FLUIDS AND ICE CHIPS. ZOFRAN GIVEN WITH NORCO, NAUSEA RESOLVED. DID NOT GET OOB. STILL REQUIRES ASSIST WITH SOME SIMPLE TASKS DUE TO WEAK EXTREMITIES. ADEQUATE OUTPUT. REPORTS HIGH PAIN. UNEVENTFUL NIGHT.
[2022-11-02 07:35] VITALS: BP 128/83
[2022-11-02 16:40] VITALS: BP 135/82
--- NOTE | 2022-11-02 18:06 | NUR ---
SUMMARY- NO ACUTE EVENTS THIS SHIFT. PT WAS IN HIS CHAIR FOR 3.5 HRS TODAY. PT REFUSED TO WALK IN HIS ROOM TODAY. PAIN WELL CONTROLLED W/ EMAR MEDS THIS SHIFT. AAOX4. X2 ASSIST.
[2022-11-02 19:59] VITALS: BP 123/83
[2022-11-03 03:30] VITALS: BP 126/78
--- NOTE | 2022-11-03 04:52 | NUR ---
SHIFT SUMMARY: A&0 4, ABLE TO MAKE NEEDS KNOWN. REQUESTED PAIN MEDICATION FOR LEFT HAND PAIN AND BACK PAIN. NORCO PROVIDED WHICH WAS EFFECTIVE, ZOFRAN FOR NAUSEA, NO EMESIS. BOWEL TONES PRESENT CONTINUES ON ADA DIET. 1500ML FLUID RESTRICTION WHILE DIURESING, PREFERS ICE CHIPS TO HAVING WATER. SBA X 2 WITH GAIT BELT, IN BED THIS SHIFT. POWER GLIDE UPPER LEFT ARM, FLUSHING WITHOUT DIFFICULTY. PLAN IS FOR SNF PLACEMENT. RESPIRATIONS EVEN UNLABORED. CALL LIGHT WITHIN REACH.
[2022-11-03 05:04] LABS: Hematocrit 23.6 % (37.0-53.0); Hemoglobin 7.6 g/dL (13.5-17.5)
[2022-11-03 05:43] LABS: Magnesium, Blood 1.9 mg/dL (1.6-2.4)
[2022-11-03 05:44] LABS: Albumin, Blood 1.5 g/dL (3.4-5.0); Anion Gap 6 mmol/L (6-16); Blood Urea Nitrogen 39 mg/dL (8-24); Bun/Creatinine Ratio 32.8 (12.0-20.0); CO2, Blood 24 mmol/L (21-32); Calcium, Blood 9.2 mg/dL (8.5-10.1); Chloride, Blood 102 mmol/L (98-108); Creatinine, Blood 1.19 mg/dL (0.60-1.20); Glomerular Filtration Rate 71 (60-); Glucose, Blood 126 mg/dL (70-99); Phosphorus, Blood 4.2 mg/dL (2.5-4.9); Potassium, Blood 3.5 mmol/L (3.5-5.5); Sodium, Blood 132 mmol/L (136-145)
[2022-11-03 07:26] VITALS: BP 113/78
[2022-11-03 15:13] VITALS: BP 138/86
[2022-11-03 19:23] VITALS: BP 123/83
--- NOTE | 2022-11-03 20:18 | NUR ---
SUMMARY- PT A/O X4, USES CALL LIGHT. SBA IN ROOM WITH GAIT BELT. PT HAD BED BATH TODAY. TOLERATING FOOD AND FLUIDS. BLOOD SUGARS STABLE. BACK PAIN CONTROLLED WITH NORCO Q8. VSS. +1LE EDEMA, DECERASED SINCE DIURESIS. PLAN IS FOR PT TO GO TO SNF ONCE ARRANGED. UNEVENTFUL DAY
[2022-11-04 03:06] VITALS: BP 116/81
[2022-11-04 06:07] LABS: Hematocrit 22.9 % (37.0-53.0); Hemoglobin 7.4 g/dL (13.5-17.5)
[2022-11-04 06:26] LABS: Albumin, Blood 1.4 g/dL (3.4-5.0); Anion Gap 6 mmol/L (6-16); Blood Urea Nitrogen 35 mg/dL (8-24); Bun/Creatinine Ratio 32.1 (12.0-20.0); CO2, Blood 23 mmol/L (21-32); Calcium, Blood 9.1 mg/dL (8.5-10.1); Chloride, Blood 100 mmol/L (98-108); Creatinine, Blood 1.09 mg/dL (0.60-1.20); Glomerular Filtration Rate 79 (60-); Glucose, Blood 147 mg/dL (70-99); Magnesium, Blood 1.9 mg/dL (1.6-2.4); Phosphorus, Blood 3.3 mg/dL (2.5-4.9); Potassium, Blood 3.3 mmol/L (3.5-5.5); Sodium, Blood 129 mmol/L (136-145)
--- NOTE | 2022-11-04 06:26 | NUR ---
SHIFT SUMMARY: A&O X 3, MAKES NEEDS KNOWN. NORCO GIVEN ONE TIME FOR PAIN WHICH IS EFFECTIVE. SNACKS PROVIDED DURING THE NIGHT. CONTINUES 1500 FLUID RESTRICTION, PREFERS HAVING ICE CHIPS WHICH IS HELPFUL. FELT ITCHY DURING THE NIGHT AND SCRATCHED HIS LEGS. LOTION BLE FOR DRY SKIN. NO SWALLOWING ISSUES CONTINUES WITH REG TEXTURES. HE DOES REPORT DR OJDEA SHOULD BE STOPPING TO TALK ABOUT HIS KIDNEY BIOPSY WHICH HE HAD ON 10/29. CALL LIGHT WITHIN REACH.
[2022-11-04 07:22] VITALS: BP 135/93
--- NOTE | 2022-11-04 09:37 | NUR ---
CALLED DR OJEDA PT RECEIVED 7MEQ IV POTASSIUM BUT UNABLE TO TOLERATE IV AT 10CC/HR. IV STOPPED AND DR OJEDA NOTIFIED. HE SAID OK TO STOP IV POTASSIUM AND NO PO REPLACEMENT NEEDED.
[2022-11-04 15:23] VITALS: BP 117/78
--- NOTE | 2022-11-04 18:30 | NUR ---
SHIFT SUMMARY MR MAO IS A&OX4. C/O GENERALISED PAIN TODAY, PAIN TO ARMS AND LEFT HAND. HE APPEARS COMFORTABLE AT REST BUT MOSTLY RATES HIS PAIN AROUND 7-8/10. NORCO AND FLEXORIL "TAKE THE EDGE OFF". HAND XRAY DONE IN ROOM. ON 1500CC PO FLUID RESTRICTION. DR NASSAR SAID THAT ENSURE CAN BE EXCLUDED FROM THE FLUID RESTRICTION. PT WORKED WITH P.T. AND O.T. TODAY AND ALLOWED ME TO MOVE HIS LEFT ARM FOR POWERGLIDE DRESSING CHANGE. BED LOW, CALL LIGHT IN REACH.
[2022-11-04 20:30] VITALS: BP 113/72
--- NOTE | 2022-11-05 00:45 | NUR ---
TRANSFER PT TRANSFERRED TO [facility]. SETTLED INTO ROOM, BED IN LOW, CALL LIGHT IN REACH.
[2022-11-05 03:30] VITALS: BP 128/71
--- NOTE | 2022-11-05 05:55 | NUR ---
SHIFT SUMMARY VSS. PT SLEPT ON AND OFF T/O THE NIGHT. PT VOIDING W/O DIFFICULTY INTO URINAL INDEPENDENTLY, 1 INCONTINENT STOOL NOTED. PT TOLLERAING PO INTAKE W/O N/V, PT REQUIRING ONGOING EDUCATION ABOUT FLUID RESTRICTION. PT MEDICATED FOR PAIN WITH 1 NORCO. POWERGLIDE NOTED TO NOT DRAW THIS AM. PT NOTED TO BE ITCHY AND HAS SCRATCHED BLE. NO ACUTE EVENTS NOTED T/O THE NIGHT. AWAITING FOR PT TO GET SNF PLACEMENT. THE PATIENT IS CURRENTLY RESTING IN BED, IN NO DISTRESS, CALL LIGHT IN REACH
[2022-11-05 06:06] LABS: Hematocrit 23.1 % (37.0-53.0); Hemoglobin 7.4 g/dL (13.5-17.5)
[2022-11-05 06:37] LABS: Albumin, Blood 1.3 g/dL (3.4-5.0); Anion Gap 6 mmol/L (6-16); Blood Urea Nitrogen 36 mg/dL (8-24); Bun/Creatinine Ratio 37.7 (12.0-20.0); CO2, Blood 24 mmol/L (21-32); Calcium, Blood 9.3 mg/dL (8.5-10.1); Chloride, Blood 101 mmol/L (98-108); Creatinine, Blood 0.95 mg/dL (0.60-1.20); Glomerular Filtration Rate 93 (60-); Glucose, Blood 146 mg/dL (70-99); Magnesium, Blood 1.9 mg/dL (1.6-2.4); Phosphorus, Blood 3.2 mg/dL (2.5-4.9); Potassium, Blood 3.9 mmol/L (3.5-5.5); Sodium, Blood 131 mmol/L (136-145)
[2022-11-05 08:10] VITALS: BP 127/80
[2022-11-05 16:55] VITALS: BP 113/68
--- NOTE | 2022-11-05 17:19 | NUR ---
PT IS A/OX3, PLEASANT AND COOPERATIVE. THE PT IS UP WITH ASSIST. HOWEVER, THE PT DECLINED TO GET UP IN THE CHAIR TODAY. PT WAS MEDICATED FOR PAIN AND NAUSEA T/O THE DAY. A WRIST BRACE WAS APPLIED TO THE PT'S LEFT WRIST. THE PT CONTINUOSLY ASKED FOR DRINKS T/O THE DAY AND WAS REMINDED OF THE FLUID RISTRICTION. PT APPEARED TO BE BREATHING EASILY AT REST ON RA. CALL LIGHT IN REACH. WILL CONTINUE TO MONIOTR AND ASSESS FOR CHANGES.
[2022-11-05 19:31] VITALS: BP 113/70
[2022-11-06 03:16] VITALS: BP 112/74
[2022-11-06 05:50] LABS: Hematocrit 22.9 % (37.0-53.0); Hemoglobin 7.3 g/dL (13.5-17.5)
[2022-11-06 06:11] LABS: Magnesium, Blood 1.8 mg/dL (1.6-2.4)
[2022-11-06 06:41] LABS: Albumin, Blood 1.2 g/dL (3.4-5.0); Anion Gap 7 mmol/L (6-16); Blood Urea Nitrogen 34 mg/dL (8-24); CO2, Blood 25 mmol/L (21-32); Chloride, Blood 99 mmol/L (98-108); Glomerular Filtration Rate 88 (60-); Glucose, Blood 142 mg/dL (70-99); Potassium, Blood 3.7 mmol/L (3.5-5.5); Sodium, Blood 131 mmol/L (136-145)
--- NOTE | 2022-11-06 08:01 | NUR ---
Nate slept intermittantly early in the evening. calling out multiple times for fluids. His 1500 limit was reached by midnight. very small amounts of ice chips were given for relief of dry mouth. Patient's left wrist was very painful and [place] was given twice to manage it. Patient aware he will be going to [facility] today, and is somewhat anxious about the change
[2022-11-06 08:13] VITALS: BP 106/78
[2022-11-06 08:57] LABS: SARS-Cov-2 (COVID-19) PCR, MMC NEGATIVE (NEGATIVE)
--- NOTE | 2022-11-06 10:53 | NUR ---
pt discharged THE PT WAS TRANSFERED TO [facility]. REPORT WAS ATTEMPTED BY PHONE, THE RN WAS NOT AVAILBLE PHONE NUMBER WAS GIVEN FOR CALL BACK, CALL HAS NOT BEEN RECIEVED. THE PT WAS A/OX4 AT THE TIME OF DC BREATHING EASILY ON RA. PT WAS TRANSFERED VIA WHEELCHAIR ACCOMPANIED BY [facility]
== END 2022-11-06 10:44 | DRG 871 ==
LOC: ER 13:49 → MEDS 17:28 → PCU 19:23 → MEDS 10-17 13:14 → PCU 10-17 13:14 → MEDS 10-20 16:23 → ENPENDDIS 11-06 08:29 → MEDS 11-06 10:44
PROVIDERS: Emergency Medicine; Family Medicine; Family Medicine Adult Medicine; Hospitalist; Internal Medicine Nephrology; Nurse Practitioner Acute Care; ADMIT Family Medicine
PROC: 3E03329 Introduction of Other Anti-infective into Peripheral Vein, Percutaneous Approach (ICD-10-PCS; principal; 2022-10-17)
PROC: 0T9B70Z Drainage of Bladder with Drainage Device, Via Natural or Artificial Opening (ICD-10-PCS; 2022-10-17)
PROC: 30233N1 Transfusion of Nonautologous Red Blood Cells into Peripheral Vein, Percutaneous Approach (ICD-10-PCS; 2022-10-18)
PROC: 0TB13ZX Excision of Left Kidney, Percutaneous Approach, Diagnostic (ICD-10-PCS; 2022-10-29)
DX: A40.8 Other streptococcal sepsis (principal); G92.8 Other toxic encephalopathy; E87.1 Hypo-osmolality and hyponatremia; I12.0 Hypertensive chronic kidney disease with stage 5 chronic kidney disease or end stage renal disease; N25.81 Secondary hyperparathyroidism of renal origin; N17.9 Acute kidney failure, unspecified; N39.0 Urinary tract infection, site not specified; E87.21 Acute metabolic acidosis; Z20.822 Contact with and (suspected) exposure to COVID-19; R65.20 Severe sepsis without septic shock; M79.642 Pain in left hand; E87.6 Hypokalemia; D63.1 Anemia in chronic kidney disease; E11.22 Type 2 diabetes mellitus with diabetic chronic kidney disease; L40.8 Other psoriasis; E83.39 Other disorders of phosphorus metabolism; E83.42 Hypomagnesemia; E87.70 Fluid overload, unspecified; E03.9 Hypothyroidism, unspecified; K21.9 Gastro-esophageal reflux disease without esophagitis; D69.6 Thrombocytopenia, unspecified; E11.40 Type 2 diabetes mellitus with diabetic neuropathy, unspecified; R74.01 Elevation of levels of liver transaminase levels; G89.29 Other chronic pain; M54.9 Dorsalgia, unspecified; E78.5 Hyperlipidemia, unspecified; E11.649 Type 2 diabetes mellitus with hypoglycemia without coma; E11.21 Type 2 diabetes mellitus with diabetic nephropathy; F15.10 Other stimulant abuse, uncomplicated; E66.9 Obesity, unspecified; Z68.33 Body mass index [BMI] 33.0-33.9, adult; Z71.51 Drug abuse counseling and surveillance of drug abuser; Z90.49 Acquired absence of other specified parts of digestive tract; Z98.890 Other specified postprocedural states; Z87.891 Personal history of nicotine dependence; Z91.030 Bee allergy status; Z79.890 Hormone replacement therapy; Z79.899 Other long term (current) drug therapy
CPT/HCPCS: 36415; 36430; 36680; 50200; 51702; 70450; 71045; 73130; 76700; 76857; 77012; 80053; 80069; 81001; 82140; 82550; 82553; 82607; 82746; 82803; 82947; 83605; 83615; 83735; 83880; 84100; 84132; 84443; 85014; 85018; 85025; 85027; 85610; 85730; 86850; 86900; 86901; 86923; 87040; 87086; 87147; 87184; 88329; 93005; 93010; 96365-59; 96367-59; 96372; 96372-59; 96375-59; 96376; 96376-59; 97110; 97116; 97140-CO; 97162; 97166; 97530; 97535; 99285-25; A9270; C1751; G0378; G0480; J0696; J0881; J1170; J1610; J1644; J2405; J3475; J3480; J7040; J7050; J7060; J7070; P9016; P9046; P9047; U0002